=== PATIENT | male | born 1930 | race Caucasian/White ===

== ENCOUNTER 2016-03-10 16:44 | Emergency (ER) | payer MEDICARE, MEDICAID ==
[2016-03-10] MEDS ORDERED: Acyclovir* 400 MG TAB PO ONE (18:38)
[2016-03-10] MEDS ORDERED: DOXYcycline CAP(*) 100 MG PO ONE (18:38)
[2016-03-10 20:01] VITALS: BP 145/94
[2016-03-10] MEDS ORDERED: Mupirocin 2% OINT* TUBE TOPICAL SCH (21:00)
--- NOTE | 2016-03-12 06:46 | ED ---
Varinder Dacosta Janilya, scribed for Valdemar Chairez MD on 03/10/16 at 1827 . Throat Pain/Nasal Congestion - HPI Summary HPI Summary: A 85 y/o male was [place] [facility] presenting w/ a sore and rash in left nostril starting today. Pt also reports that pain radiates to the left side of his face. Pain is described as constant pain. Pt is legally blind. - History of Current Complaint Chief Complaint: EDGeneral Time Seen by Provider: 03/10/16 18:13 Hx Obtained From: Patient Onset/Duration: Gradual Onset, Lasting Hours Severity: Moderate - Allergies/Home Medications Allergies/Adverse Reactions: Allergies Allergy/AdvReac Type Severity Reaction Status Date / Time Erythromycin Allergy Unknown Unknown Verified 02/24/15 19:56 Reaction Details Sulfa Drugs Allergy Unknown Unknown Verified 02/24/15 19:56 Reaction Details Azithromycin Allergy Unknown Verified 02/24/15 19:56 Reaction Details PMH/Surg Hx/FS Hx/Imm Hx Endocrine/Hematology History: Denies: Hx Anticoagulant Therapy, Hx Diabetes, Hx Thyroid Disease, Other Endocrine/Hematological Disorders Cardiovascular History: Reports: Hx Aneurysm, Hx Hypertension Denies: Hx Pacemaker/ICD, Hx Peripheral Vascular Disease, Other Cardiovascular Problems/Disorders Respiratory History: Reports: Hx Chronic Obstructive Pulmonary Disease (COPD) Denies: Hx Asthma, Other Respiratory Problems/Disorders GI History: Reports: Hx Gastroesophageal Reflux Disease Denies: Other GI Disorders History: Reports: Hx Benign Prostatic Hyperplasia Denies: Hx Renal Disease, Other Problems/Disorders Musculoskeletal History: Denies: Hx Arthritis, Hx Osteoporosis, Other Musculoskeletal History Sensory History: Reports: Hx Cataracts, Hx Legally Blind, Hx Vision Problem, Hx Hearing Problem Denies: Other Sensory Impairments Opthamlomology History: Reports: Hx Cataracts, Hx Legally Blind, Hx Vision Problem Denies: Other Sensory Impairments Neurological History: Denies: Hx Dementia, Hx Headaches, Hx Seizures, Hx Transient Ischemic Attacks (TIA), Other Neuro Impairments/Disorders Psychiatric History: Denies: Hx Substance Abuse, Other Psychiatric Issues/Disorders Infectious Disease History: No Infectious Disease History: Denies: Hx Hepatitis, Hx Human Immunodeficiency Virus (HIV), Traveled Outside the [place] in Last 30 Days - Family History Known Family History: Positive: Hypertension - mother - Social History Alcohol Use: Rare Substance Use Type: Reports: None Hx Tobacco Use: Yes Smoking Status (MU): Light Every Day Tobacco Smoker Type: Pipe Have You Smoked in the Last Year: Yes Review of Systems Positive: Other - constant left sided facial pain Positive: Other - legally blind Positive: Other - sore in left nostril All Other Systems Reviewed And Are Negative: Yes Physical Exam - Summary Physical Exam Summary: GENERAL EXAM GENERAL: Awake, alert, oriented, no acute distress, very pleasant HEENT: Head is normocephalipolc, atraumatic, pupils unreactive to light, clouded right eye, no dendritic lesions on left eye, mucous membranes moist, no erythema, no discharge, no lesions, neck is supple, trachea is midline, no JVD CARDIAC: Regular rate and rhythm, S1, S2, no rub, no murmur, no gallop, 2+ radial and pedal pulses bilaterally RESPIRATORY: Clear to auscultation bilaterally with no rales, rhonchi, or wheezes, non-tender ABDOMEN: Bowel sounds positive, no bruit, soft, non-tender, no CVA tenderness EXTREMITIES: No edema, warm, dry, moving all extremities in a grossly normal manner NEUROLOGICAL: Mood is appropriate, moving all extremities in a grossly normal manner Triage Information Reviewed: Yes Vital Signs On Initial Exam: Initial Vitals Temp Pulse Resp BP Pulse Ox 98.2 F 79 16 120/56 98 03/10/16 17:57 03/10/16 17:57 03/10/16 17:57 03/10/16 17:57 03/10/16 17:57 Vital Signs Reviewed: Yes Diagnostics - Vital Signs Vital Signs Temp Pulse Resp BP Pulse Ox 03/10/16 17:57 98.2 F 79 16 120/56 98 - Laboratory Lab Statement: Any lab studies that have been ordered have been reviewed, and results considered in the medical decision making process. 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 no dendritic lesion seen or cornea. will treat for both bacterial infection and hsv infection discussed with dr hendricks call at 8 am to be seen tomorrow - Diagnoses Provider Diagnoses: Shingles, Bacterial infection - Provider Notifications Discussed Care of Patient with: Dr. Hendricks (plate slitter and inspector) at 1835: recommended workup for shingles because it could cause ulceration of cornea and extreme pain. Discharge - Discharge Plan Condition: Stable Disposition: HOME Prescriptions: Acyclovir TAB* [Zovirax TAB*] 800 mg PO 5ID #70 tab DOXYcycline CAP(*) [DOXYcycline 100MG CAP(*)] 100 mg PO BID #20 cap Patient Education Materials: Shingles (ED) Referrals: Valentin Hendricks MD [Medical Doctor] - 1 Day Additional Instructions: Follow up with Dr. Hendricks (plate slitter and inspector) tomorrow and your Primary Care Provider in 2 days. The documentation as recorded by the Varinder bonilla Janilya accurately reflects the service I personally performed and the decisions made by me, Valdemar Chairez MD.
== END 2016-03-10 20:00 | disposition home or self-care (01) ==
LOC: ED 16:44
DX: B02.9 Zoster without complications (principal); A49.9 Bacterial infection, unspecified; R21 Rash and other nonspecific skin eruption; F17.210 Nicotine dependence, cigarettes, uncomplicated; H54.0 Blindness, both eyes
CPT/HCPCS: 99282; A9270-GY

== ENCOUNTER 2016-04-16 07:24 | Emergency (ER) | payer MEDICARE, MEDICAID ==
[2016-04-16] MEDS ORDERED: NS 0.9% 1000 ML* 1,000 ML IV ONE ×2 (07:54→10:25)
[2016-04-16 08:03] LABS: Hematocrit 44 % (42-52); Mean Corpuscular HGB Conc 34 g/dl (31-36); Mean Corpuscular Hemoglobin 32 pg (27-31); Mean Corpuscular Volume 94 fL (80-94); Mean Platelet Volume 8 um3 (7.4-10.4); Red Blood Count 4.63 10^6/ul (4.0-5.4); Red Cell Distribution Width 14 % (10.5-15); White Blood Count 14.1 10^3/ul (3.5-10.8)
[2016-04-16 08:19] LABS: Albumin 4.4 g/dL (3.2-5.2); Calcium 9.9 mg/dL (8.6-10.3); EGFR African American 96.2 (>60); EGFR Non-African American 74.8 (>60); Globulin 3.1 g/dL (2-4); Potassium 3.9 mmol/L (3.5-5.0); Total Bilirubin 1.8 mg/dL (0.2-1.0); Total Protein 7.5 g/dL (6.4-8.9)
[2016-04-16 08:26] LABS: Troponin I 0.05 ng/mL (<0.04)
--- NOTE | 2016-04-16 09:15 | RAD ---
INDICATION: Cough COMPARISON: January 01, 2016 TECHNIQUE: PA and lateral dual-energy views were obtained. FINDINGS: Bones/Soft Tissues: There are no acute bony findings. Cardiomediastinal: The cardiomediastinal silhouette is normal. Lungs: There are no infiltrates. There is hyperinflation Pleura: There are no pleural effusions. Other: None IMPRESSION: HYPERINFLATION. NO ACTIVE DISEASE.
[2016-04-16 12:04] LABS: Urine Bacteria 1+ (Absent); Urine Bilirubin Negative (Negative); Urine Glucose Negative (Negative); Urine Nitrite Negative (Negative)
[2016-04-16] MEDS ORDERED: Ondansetron INJ* 2 MG/ML VIAL IV ONE (12:55)
[2016-04-16] MEDS ORDERED: Levofloxacin 750 MG IVPREMIX(* 750 MG/150 ML BAG IVPB ONE (12:55)
--- NOTE | 2016-04-16 14:57 | ED ---
Opal Dacosta Rebecca, scribed for Eliseo Vaughan MD on 04/16/16 at 0748 . Complex/Multi-Sys Presentation - HPI Summary HPI Summary: Guanako Hare is an 85 y/o M BIBA who presents to ED c/o generalized weakness. Reports feeling weak for 20 minutes, while walking, immediately prior to a brief episode of LOC. Per nurse, he was ambulating to the bathroom and began feeling weak. He told his aid that he felt weak and near syncopal, who proceeded to lower him to the ground where he vomited 2-3x and reports "passing out." Weakness has been constant since onset. Sx aggravated and alleviated by nothing. Additionally c/o mild nausea and nonproductive cough (3-4 days). Denies any pain. - History Of Current Complaint Chief Complaint: EDWeakness Time Seen by Provider: 04/16/16 07:34 Hx Obtained From: Patient, Other: - Nurse Onset/Duration: Sudden Onset, Still Present Timing: Constant Severity Currently: None Location: Negative Aggravating Factor(s): Nothing Alleviating Factor(s): Nothing Associated Signs And Symptoms: Positive: Weakness - Generalized, Cough - nonproductive, Nausea, Vomiting - 2-3x MENHADEN VESSEL PILOT, Other - LOC (brief). Negative: Chest Pain, Abdominal Pain, Back Pain - Allergies/Home Medications Allergies/Adverse Reactions: Allergies Allergy/AdvReac Type Severity Reaction Status Date / Time Erythromycin Allergy Unknown Unknown Verified 04/16/16 07:39 Reaction Details Sulfa Drugs Allergy Unknown Unknown Verified 04/16/16 07:39 Reaction Details Azithromycin Allergy Unknown Verified 04/16/16 07:39 Reaction Details PMH/Surg Hx/FS Hx/Imm Hx Endocrine/Hematology History: Denies: Hx Anticoagulant Therapy, Hx Diabetes, Hx Thyroid Disease, Other Endocrine/Hematological Disorders Cardiovascular History: Reports: Hx Aneurysm, Hx Hypertension Denies: Hx Pacemaker/ICD, Hx Peripheral Vascular Disease, Other Cardiovascular Problems/Disorders Respiratory History: Reports: Hx Chronic Obstructive Pulmonary Disease (COPD) Denies: Hx Asthma, Other Respiratory Problems/Disorders GI History: Reports: Hx Gastroesophageal Reflux Disease Denies: Other GI Disorders History: Reports: Hx Benign Prostatic Hyperplasia Denies: Hx Renal Disease, Other Problems/Disorders Musculoskeletal History: Denies: Hx Arthritis, Hx Osteoporosis, Other Musculoskeletal History Sensory History: Reports: Hx Cataracts, Hx Legally Blind, Hx Vision Problem, Hx Hearing Problem Denies: Other Sensory Impairments Opthamlomology History: Reports: Hx Cataracts, Hx Legally Blind, Hx Vision Problem Denies: Other Sensory Impairments Neurological History: Denies: Hx Dementia, Hx Headaches, Hx Seizures, Hx Transient Ischemic Attacks (TIA), Other Neuro Impairments/Disorders Psychiatric History: Denies: Hx Substance Abuse, Other Psychiatric Issues/Disorders Infectious Disease History: No Infectious Disease History: Denies: Hx Hepatitis, Hx Human Immunodeficiency Virus (HIV), Traveled Outside the US in Last 30 Days - Family History Known Family History: Positive: Hypertension - mother - Social History Lives: [facility] Alcohol Use: Rare Substance Use Type: Reports: None Hx Tobacco Use: Yes Smoking Status (MU): Light Every Day Tobacco Smoker Type: Pipe Have You Smoked in the Last Year: Yes Review of Systems Positive: Cough - Nonproductive Positive: Vomiting - 2-3x MENHADEN VESSEL PILOT, Nausea - mild Negative: Arthralgia, Myalgia Positive: Weakness - Generalized, Syncope - Brief LOC All Other Systems Reviewed And Are Negative: Yes Physical Exam Triage Information Reviewed: Yes Vital Signs On Initial Exam: Initial Vitals Temp Pulse Resp BP Pulse Ox 99.7 F 96 20 151/74 95 04/16/16 07:39 04/16/16 07:39 04/16/16 07:39 04/16/16 07:39 04/16/16 07:39 Vital Signs Reviewed: Yes Appearance: Positive: Well-Appearing, No Pain Distress Skin: Positive: Warm, Skin Color Reflects Adequate Perfusion, Dry Head/Face: Positive: Normal Head/Face Inspection Eyes: Positive: Normal ENT: Positive: Other - Dry mucous membranes Neck: Positive: Supple, Nontender Respiratory/Lung Sounds: Positive: Clear to Auscultation, Breath Sounds Present , Other - Making poor expiratory, shallow breathing Cardiovascular: Positive: RRR. Negative: Leg Edema Left, Leg Edema Right Abdomen Description: Positive: Nontender, Soft Bowel Sounds: Positive: Present Musculoskeletal: Positive: Normal Neurological: Positive: Normal Psychiatric: Positive: Normal, Affect/Mood Appropriate Diagnostics - Vital Signs Vital Signs Temp Pulse Resp BP Pulse Ox 04/16/16 07:39 99.7 F 96 20 151/74 95 - Laboratory Lab Results: Lab Results 04/16/16 04/16/16 04/16/16 Range/Units 07:50 07:50 07:50 WBC 14.1 H (3.5-10.8) 10^3/ul RBC 4.63 (4.0-5.4) 10^6/ul Hgb 15.0 (14.0-18.0) g/dl Hct 44 (42-52) % MCV 94 (80-94) fL MCH 32 H (27-31) pg MCHC 34 (31-36) g/dl RDW 14 (10.5-15) % Plt Count 173 (150-450) 10^3/ul MPV 8 (7.4-10.4) um3 Neut % (Auto) 86.7 H (38-83) % Lymph % (Auto) 4.6 L (25-47) % [place] % (Auto) 7.8 (1-9) % Eos % (Auto) 0.2 (0-6) % Baso % (Auto) 0.7 (0-2) % Absolute Neuts (auto) 12.2 H (1.5-7.7) 10^3/ul Absolute Lymphs (auto) 0.6 L (1.0-4.8) 10^3/ul Absolute Monos (auto) 1.1 H (0-0.8) 10^3/ul Absolute Eos (auto) 0 (0-0.6) 10^3/ul Absolute Basos (auto) 0.1 (0-0.2) 10^3/ul Absolute Nucleated RBC 0 10^3/ul Nucleated RBC % 0 Sodium 129 L (133-145) mmol/L Potassium 3.9 (3.5-5.0) mmol/L Chloride 94 L (101-111) mmol/L Carbon Dioxide 27 (22-32) mmol/L Anion Gap 8 (2-11) mmol/L BUN 24 (6-24) mg/dL Creatinine 0.96 (0.67-1.17) mg/dL Est GFR ( Amer) 96.2 (>60) Est GFR (Non-Af Amer) 74.8 (>60) BUN/Creatinine Ratio 25.0 H (8-20) Glucose 123 H (70-100) mg/dL Lactic Acid 1.3 (0.5-2.0) mmol/L Calcium 9.9 (8.6-10.3) mg/dL Magnesium 2.0 (1.9-2.7) mg/dL Total Bilirubin 1.80 H (0.2-1.0) mg/dL AST 39 (13-39) U/L ALT 32 (7-52) U/L Alkaline Phosphatase 139 H (34-104) U/L Troponin I 0.05 H* (<0.04) ng/mL Total Protein 7.5 (6.4-8.9) g/dL Albumin 4.4 (3.2-5.2) g/dL Globulin 3.1 (2-4) g/dL Albumin/Globulin Ratio 1.4 (1-3) TSH 1.00 (0.34-5.60) mcIU/mL Urine Color Urine Appearance Urine pH (5-9) Ur Specific [place] (1.010-1.030) Urine Protein (Negative) Urine Ketones (Negative) Urine Blood (Negative) Urine Nitrate (Negative) Urine Bilirubin (Negative) Urine Urobilinogen (Negative) Ur Leukocyte Esterase (Negative) Urine WBC (Auto) (Absent) Urine RBC (Auto) (Absent) Urine Bacteria (Absent) Urine Glucose (Negative) 04/16/16 04/16/16 Range/Units 11:42 13:45 WBC (3.5-10.8) 10^3/ul RBC (4.0-5.4) 10^6/ul Hgb (14.0-18.0) g/dl Hct (42-52) % MCV (80-94) fL MCH (27-31) pg MCHC (31-36) g/dl RDW (10.5-15) % Plt Count (150-450) 10^3/ul MPV (7.4-10.4) um3 Neut % (Auto) (38-83) % Lymph % (Auto) (25-47) % [place] % (Auto) (1-9) % Eos % (Auto) (0-6) % Baso % (Auto) (0-2) % Absolute Neuts (auto) (1.5-7.7) 10^3/ul Absolute Lymphs (auto) (1.0-4.8) 10^3/ul Absolute Monos (auto) (0-0.8) 10^3/ul Absolute Eos (auto) (0-0.6) 10^3/ul Absolute Basos (auto) (0-0.2) 10^3/ul Absolute Nucleated RBC 10^3/ul Nucleated RBC % Sodium (133-145) mmol/L Potassium (3.5-5.0) mmol/L Chloride (101-111) mmol/L Carbon Dioxide (22-32) mmol/L Anion Gap (2-11) mmol/L BUN (6-24) mg/dL Creatinine (0.67-1.17) mg/dL Est GFR ( Amer) (>60) Est GFR (Non-Af Amer) (>60) BUN/Creatinine Ratio (8-20) Glucose (70-100) mg/dL Lactic Acid (0.5-2.0) mmol/L Calcium (8.6-10.3) mg/dL Magnesium (1.9-2.7) mg/dL Total Bilirubin (0.2-1.0) mg/dL AST (13-39) U/L ALT (7-52) U/L Alkaline Phosphatase (34-104) U/L Troponin I 0.07 H* (<0.04) ng/mL Total Protein (6.4-8.9) g/dL Albumin (3.2-5.2) g/dL Globulin (2-4) g/dL Albumin/Globulin Ratio (1-3) TSH (0.34-5.60) mcIU/mL Urine Color Yellow Urine Appearance Cloudy Urine pH 7.0 (5-9) Ur Specific [place] 1.015 (1.010-1.030) Urine Protein Negative (Negative) Urine Ketones Negative (Negative) Urine Blood Negative (Negative) Urine Nitrate Negative (Negative) Urine Bilirubin Negative (Negative) Urine Urobilinogen Negative (Negative) Ur Leukocyte Esterase 3+ H (Negative) Urine WBC (Auto) 3+(>20/hpf) H (Absent) Urine RBC (Auto) Absent (Absent) Urine Bacteria 1+ H (Absent) Urine Glucose Negative (Negative) Result Diagrams: 04/16/16 07:50 04/16/16 07:50 Lab Statement: Any lab studies that have been ordered have been reviewed, and results considered in the medical decision making process. - Radiology CXR Radiology Interpretation Completed By: Radiologist - HYPERINFLATION. NO ACTIVE DISEASE. - EKG 0805 Cardiac Rate: NL - 95 bpm EKG Rhythm: Sinus Rhythm ST Segment: Non-Specific Ectopy: PVCs Complex Multi-Symp Course/Dx Assessment/Plan: Guanako Hrae is an 85 y/o M BIBA who presents to the ED c /o generalized weakness. Reports weakness began 20 minutes prior to an episode of LOC with 2-3 bouts of vomiting. Additionally c/o nonproductive cough (3-4 days) and mild nausea. Denies any pain. CXR reveals hyperinflation and no active disease. EKG reveals nonspecific ST changes and PVCs. Troponin of 0.05 and 0.07. Pt will be D/C to home with a dx of UTI and syncope and a followup with his PCP. - Diagnoses Provider Diagnoses: UTI (urinary tract infection), Syncope Discharge - Discharge Plan Condition: Stable Disposition: HOME Prescriptions: Ciprofloxacin TAB* [Cipro Tab*] 500 mg PO BID #20 tab Patient Education Materials: Urinary Tract Infection in Men (ED), Syncope (ED) Referrals: [facility] [Outside] - 3 Days (Follow up with your primary care physician within the next 3 days. ) The documentation as recorded by the Opal bonilla Rebecca accurately reflects the service I personally performed and the decisions made by me, Eliseo Vaughan MD.
[2016-04-16 16:19] VITALS: BP 114/65
--- NOTE | 2016-04-19 07:12 | PN ---
Progress Note - Progress Note Note: Patient placed on cipro for UTI which according in final culture is not sensitive for. Changed antibiotic to augmentin twice a day for 10 days. Left voicemail at residential to stop current antibiotic and start new one.
== END 2016-04-16 16:43 | disposition home or self-care (01) ==
LOC: ED 07:24
DX: N39.0 Urinary tract infection, site not specified (principal); R55 Syncope and collapse; R53.1 Weakness; R05 Cough; R11.2 Nausea with vomiting, unspecified; F17.210 Nicotine dependence, cigarettes, uncomplicated
CPT/HCPCS: 36415; 71020; 80053; 81003; 81015; 83605; 83735; 84443; 84484; 85025; 87077; 87086; 87186; 93005; 96365; 96366; 96375; 99285; J2405

== ENCOUNTER 2016-06-09 15:05 | Inpatient (IN) | payer MEDICARE, MEDICAID ==
[2016-06-09] MEDS ORDERED: NS 0.9% 1000 ML* 1,000 ML IV ONE (16:14)
[2016-06-09 16:37] LABS: Urine Bacteria 1+ (Absent); Urine Bilirubin Negative (Negative); Urine Glucose Negative (Negative); Urine Nitrite Negative (Negative)
[2016-06-09 16:38] LABS: Hematocrit 45 % (42-52); Hemoglobin 15.1 g/dl (14.0-18.0); Mean Corpuscular HGB Conc 33 g/dl (31-36); Mean Corpuscular Hemoglobin 31 pg (27-31); Mean Corpuscular Volume 94 fL (80-94); Mean Platelet Volume 7 um3 (7.4-10.4); Red Blood Count 4.82 10^6/ul (4.0-5.4); Red Cell Distribution Width 14 % (10.5-15); White Blood Count 6.4 10^3/ul (3.5-10.8)
[2016-06-09 16:51] LABS: Albumin 4.5 g/dL (3.2-5.2); BUN/Creatinine Ratio 27.5 (8-20); Calcium 9.7 mg/dL (8.6-10.3); EGFR African American 102.1 (>60); EGFR Non-African American 79.4 (>60); Globulin 3.3 g/dL (2-4); Magnesium 2.2 mg/dL (1.9-2.7); Potassium 4.1 mmol/L (3.5-5.0); Total Bilirubin 1.3 mg/dL (0.2-1.0); Total Protein 7.8 g/dL (6.4-8.9)
[2016-06-09 16:56] LABS: Troponin I 0.04 ng/mL (<0.04)
[2016-06-09] MEDS ORDERED: Cefepime(*) 1 GM in NS 0.9% 50 ML* 50 ML IVPB ONE (17:06)
--- NOTE | 2016-06-09 17:07 | RAD ---
INDICATION: Weakness COMPARISON: April 16, 2016 TECHNIQUE: AP seated and lateral views were obtained. FINDINGS: Bones/Soft Tissues: There are no acute bony findings. Cardiomediastinal: The cardiomediastinal silhouette is normal. Lungs: There are no infiltrates. There is hyperinflation with mild chronic interstitial changes Pleura: There are no pleural effusions. Other: None IMPRESSION: HYPERINFLATION WITH MILD CHRONIC INTERSTITIAL CHANGE
[2016-06-09 17:12] LABS: TSH (Thyroid Stimulating Horm) 0.73 mcIU/mL (0.34-5.60)
[2016-06-09] MEDS ORDERED: NS 0.9% 50 ML* 50 ML ONE (17:44)
--- NOTE | 2016-06-09 18:59 | ED ---
Asim Dacosta Billy, scribed for Trenton Meraz MD on 06/09/16 at 1607 . Complex/Multi-Sys Presentation - HPI Summary HPI Summary: Patient is an 86 year-old male coming to [facility] from [place]. Per triage, he was sent to the ED for evaluation of hypotension and low O2 sat. Here in the ED, patient complains of chills. It is noted on review of the care home transfer sheet that the patient had a BP in the 80s associated with decreased LOC, and skin color clammy. - History Of Current Complaint Chief Complaint: EDGeneral Time Seen by Provider: 06/09/16 16:02 Hx Obtained From: Patient Onset/Duration: Gradual Onset Timing: Constant Severity Currently: Moderate Severity Initially: Moderate Aggravating Factor(s): n/a Alleviating Factor(s): n/a Associated Signs And Symptoms: Positive: Other - chills - Allergies/Home Medications Allergies/Adverse Reactions: Allergies Allergy/AdvReac Type Severity Reaction Status Date / Time Erythromycin Allergy Unknown Unknown Verified 04/16/16 07:39 Reaction Details Sulfa Drugs Allergy Unknown Unknown Verified 04/16/16 07:39 Reaction Details Azithromycin Allergy Unknown Verified 04/16/16 07:39 Reaction Details Home Medications: Home Medications Albuterol/Ipratropium NEB.ROSI* [Duoneb (Albuterol 2.5 MG/Ipratropium 0.5 MG)] 1 neb INH Q4H PRN 06/09/16 [History Confirmed 06/09/16] Ascorbic Acid TAB* [Vitamin C TAB*] 500 mg PO DAILY 06/09/16 [History Confirmed 06/09/16] Atorvastatin* [Lipitor 40 MG*] 40 mg PO BEDTIME 06/09/16 [History Confirmed ] Digoxin TAB* [Lanoxin TAB*] 0.125 mg PO DAILY 06/09/16 [History Confirmed ] Diphenhydramine-Acetaminophen [Acetaminophen/Diphenhydra 25-500 mg] 1 tab PO BEDTIME 06/09/16 [History Confirmed 06/09/16] Esomeprazole(NF) [NEXium(NF)] 20 mg PO DAILY 06/09/16 [History Confirmed ] Meloxicam(NF) [Mobic(NF)] 15 mg PO DAILY 06/09/16 [History Confirmed 06/09/16] Multivitamins/Minerals TAB* [Theragran/minerals TAB*] 1 tab PO DAILY 06/09/16 [ History Confirmed 06/09/16] Nutritional Supplements [Ensure] 1 can PO .BID AND SNACKS 06/09/16 [History Confirmed 06/09/16] PMH/Surg Hx/FS Hx/Imm Hx Endocrine/Hematology History: Denies: Hx Anticoagulant Therapy, Hx Diabetes, Hx Thyroid Disease, Other Endocrine/Hematological Disorders Cardiovascular History: Reports: Hx Aneurysm, Hx Hypertension Denies: Hx Pacemaker/ICD, Hx Peripheral Vascular Disease, Other Cardiovascular Problems/Disorders Respiratory History: Reports: Hx Chronic Obstructive Pulmonary Disease (COPD) Denies: Hx Asthma, Other Respiratory Problems/Disorders GI History: Reports: Hx Gastroesophageal Reflux Disease Denies: Other GI Disorders History: Reports: Hx Benign Prostatic Hyperplasia Denies: Hx Renal Disease, Other Problems/Disorders Musculoskeletal History: Denies: Hx Arthritis, Hx Osteoporosis, Other Musculoskeletal History Sensory History: Reports: Hx Cataracts, Hx Legally Blind, Hx Vision Problem, Hx Hearing Problem Denies: Other Sensory Impairments Opthamlomology History: Reports: Hx Cataracts, Hx Legally Blind, Hx Vision Problem Denies: Other Sensory Impairments Neurological History: Denies: Hx Dementia, Hx Headaches, Hx Seizures, Hx Transient Ischemic Attacks (TIA), Other Neuro Impairments/Disorders Psychiatric History: Denies: Hx Substance Abuse, Other Psychiatric Issues/Disorders Infectious Disease History: No Infectious Disease History: Denies: Hx Hepatitis, Hx Human Immunodeficiency Virus (HIV), Traveled Outside the [place] in Last 30 Days - Family History Known Family History: Positive: Hypertension - mother - Social History Alcohol Use: Rare Substance Use Type: Reports: None Hx Tobacco Use: Yes Smoking Status (MU): Light Every Day Tobacco Smoker Type: Pipe Have You Smoked in the Last Year: Yes Review of Systems Positive: Chills Positive: Other - low blood pressure per triage Positive: Other - low O2 sat per triage All Other Systems Reviewed And Are Negative: Yes Physical Exam Triage Information Reviewed: Yes Vital Signs On Initial Exam: Initial Vitals Temp Pulse Resp BP Pulse Ox 98.0 F 72 14 138/76 98 06/09/16 15:27 06/09/16 15:27 06/09/16 15:27 06/09/16 15:27 06/09/16 15:27 Vital Signs Reviewed: Yes Appearance: Positive: Well-Appearing, No Pain Distress Skin: Positive: Warm Head/Face: Positive: Normal Head/Face Inspection Neck: Positive: Supple Respiratory/Lung Sounds: Positive: Clear to Auscultation, Breath Sounds Present Cardiovascular: Positive: Normal, RRR. Negative: Murmur Abdomen Description: Positive: Nontender Musculoskeletal: Positive: Normal, Strength/ROM Intact Neurological: Positive: Normal, Sensory/Motor Intact, Alert, Oriented to Person Place, Time, CN Intact II-III - except cranial nerve 2 he is blind Psychiatric: Positive: Normal - [place] Coma Scale Best Eye Response: 4 - Spontaneous Best Motor Response: 6 - Obeys Commands Best Verbal Response: 5 - Oriented Coma Scale Total: 15 Glascow Coma Scale Comments: 15 Diagnostics - Vital Signs Vital Signs Temp Pulse Resp BP Pulse Ox 06/09/16 15:37 71 99 06/09/16 15:35 132/79 06/09/16 15:28 98.0 F 72 14 138/76 98 06/09/16 15:27 98.0 F 72 14 138/76 98 - Laboratory Result Diagrams: 06/09/16 16:25 06/09/16 16:25 Lab Statement: Any lab studies that have been ordered have been reviewed, and results considered in the medical decision making process. - Radiology CXR Radiology Interpretation Completed By: Radiologist - HYPERINFLATION WITH MILD CHRONIC INTERSTITIAL CHANGE - EKG 1711 EKG Interpretation: NSR 77 bpm, diffuse T-wave flattening particularly in inferior/lateral lead Complex Multi-Symp Course/Dx - Diagnoses Provider Diagnoses: UTI (urinary tract infection), Hypotension, Confusion Discharge - Discharge Plan Condition: Good Disposition: ADMITTED TO [facility] documentation as recorded by the Asim bonilla Billy accurately reflects the service I personally performed and the decisions made by , Trenton Meraz MD.
[2016-06-09] MEDS ORDERED: Albuterol/Ipratropium NEB.SOL* Albuterol 2.5 MG/Ipratropium 0.5 MG 3 ML INH PRN (20:23)
[2016-06-09] MEDS ORDERED: Docusate CAP* 100 MG PO PRN (20:23)
[2016-06-09] MEDS ORDERED: Polyethylene Glycol 3350* 17 GM PACKET PO PRN (20:23)
[2016-06-09] MEDS ORDERED: Al Hydrox/Mg Hydrox/Simet LIQ* 30 ML UDC PO PRN (20:23)
[2016-06-09] MEDS: Mometasone/Formoter 200/5 MDI INH SCH (21:27)
--- NOTE | 2016-06-09 21:58 | HP ---
HISTORY AND PHYSICAL: DATE OF ADMISSION: 06/09/16 PRIMARY CARE PROVIDER: REGINALDO Castellano ATTENDING PHYSICIAN: Dr. Jose Rafael Langford* (dictated by Lacie Guzman NP ) CHIEF COMPLAINT: Confusion with low blood pressure and oxygen saturation. HISTORY OF PRESENT ILLNESS: Mr. Hare is an 86-year-old male with past medical history significant for COPD, hyperlipidemia, legally blind, hypertension, demand mediated myocardial infarction, paroxysmal atrial fibrillation, who is a resident at the [facility] and was sent to the emergency room for further evaluation earlier today. According to the [facility] records, the patient was clammy and confused. He had his vital signs checked. He was found to have an oxygen saturation of 70% on room air, BP 81/ 56 and heart rate 69. Due to the concern, [facility] called 911 and the patient was transported by EMS to the emergency room. It is to note that the EMS started the patient on 6 L nasal cannula and his O2 sat was 100%. While in the emergency room, the patient was found to have an O2 sat of 98% on room air upon arrival with a blood pressure of 125/75. The patient states that he came to the emergency room to be checked out, but he had been feeling well. The patient states that he has an occasional cough that he has had for a while and reports some mild shortness of breath at baseline. The patient has no other complaints. He denies fever, chills, chest pain, nausea, vomiting, abdominal pain, diarrhea, urinary symptoms. The patient does report that "nursing staff said that I did not use my urinal, but I did." The Hospitalists were asked to evaluate the patient for admission. PAST MEDICAL HISTORY: 1. GERD. 2. Chronic obstructive pulmonary disease. 3. Hyperlipidemia. 4. Legally blind. 5. AAA. 6. Hypertension. 7. BPH. 8. Demand mediated myocardial infarction in February of 2015. 9. Paroxysmal atrial fibrillation. PAST SURGICAL HISTORY: Status post tonsillectomy. HOME MEDICATIONS: Include: 1. Vitamin C 500 mg oral daily. 2. Ensure 1 can twice daily. 3. Nexium 20 mg oral daily. 4. TobraDex 0.3-0.1% one drop to both eyes 3 times daily. 5. MiraLAX 17 g oral twice daily as needed for constipation. 6. Albuterol ipratropium nebulizer 1 neb inhalation every 4 hours as needed for shortness of breath or wheeze. 7. Maalox 30 mL oral every 4 hours as needed for indigestion. 8. Colace 100 mg oral twice daily as needed for constipation. 9. Atorvastatin 40 mg oral daily at bedtime. 10. Tamsulosin 0.4 mg oral daily at bedtime. 11. Tylenol PM 1 tablet oral daily at bedtime. 12. Aspirin 81 mg oral daily. 13. Advair Diskus 250/50 one puff inhalation twice daily. 14. Finasteride 5 mg oral daily. 15. Multivitamin 1 tablet oral daily. 16. Ferrous sulfate 325 mg oral daily. 17. Meloxicam 15 mL oral daily. 18. Digoxin 0.125 mg oral daily. 19. Amlodipine 5 mg oral daily. 20. Ranitidine 150 mg oral twice daily. ALLERGIES: ERYTHROMYCIN, SULFA and AZITHROMYCIN. FAMILY HISTORY: The patient reports his mother had a history of hypertension. The patient denies any family history of diabetes mellitus or cancer. SOCIAL HISTORY: The patient is a current tobacco user. He smokes 1 pipe daily. He smoked for approximately 60 years. The patient denies alcohol or recreational drug use. He is retired. He is and lives at [facility]. His surrogate decision maker will be Genesis Rivera in the event he is unable to make decisions for himself. REVIEW OF SYSTEMS: I performed a 14-point review of systems. All the pertinent negatives and positives are mentioned in the history of present illness. The remaining review of systems are negative. PHYSICAL EXAMINATION GENERAL APPEARANCE: The patient is alert, pleasant and appears to be in no acute distress. VITAL SIGNS: Temperature 98.0, heart rate 78, respiratory rate 14, O2 sat 95% on room air, blood pressure 126/64. HEENT: Normocephalic, atraumatic. Eyes: Extraocular movements are intact. The patient is legally blind in both eyes. RESPIRATORY: There is no accessory muscle use and the lungs are clear to auscultation bilaterally. CARDIOVASCULAR: Regular rate and rhythm. S1, S2 present. There are no murmurs , rubs, or gallops heard. ABDOMEN: Soft, nontender, and nondistended. There are bowel sounds present x4. EXTREMITIES: There is no lower extremity edema. DP and PT pulses are 2+ and symmetric. MUSCULOSKELETAL: There is no clubbing or cyanosis noted. The patient exhibits good strength in all extremities. NEUROLOGICAL: The patient is alert and oriented to person, place and situation. He is unsure of the year. Cranial nerves III through XII are grossly intact with the exception of cranial nerve II as the patient is blind. PSYCHOLOGICAL: The patient is calm and cooperative. SKIN: There are no rashes or abnormalities seen. DIAGNOSTIC STUDIES/LAB DATA: Sodium 131, potassium 4.1, chloride 97, CO2 27, BUN 25, creatinine 0.91, glucose 91. White blood cell count 6.4, hemoglobin 15.1, hematocrit 45, and platelet count 171. Troponin 0.04. Urinalysis shows protein 1+, leukocyte esterase 3+, wbc is 3+ and bacteria is 1+ EKG shows a sinus rhythm with a rate of 77. There is diffuse T-wave flattening. EKG is similar to previous EKG from 04/16/16. Chest x-ray from today. Radiologist's impression. Hyperinflation with mild chronic interstitial changes. IMPRESSION: Mr. Hare is an 86-year-old male with past medical history significant for gastroesophageal reflux disease, chronic obstructive pulmonary disease, hyperlipidemia, legally blind, hypertension, paroxysmal atrial fibrillation, and demand mediated myocardial infarction who presents to the emergency room with confusion and reports of hypotension and hypoxia at his long term. He will be admitted as an observation for altered mental status. ASSESSMENT: 1. Altered mental status. The patient has mild confusion in regards to time. The patient has urinalysis significant for leukocyte esterase 3+, wbc is 3+, bacteria 1+. This could represent a urinary tract infection. If the patient does in fact have urinary tract infection, this could be contributing to the patient's altered mental status. The patient was not found to be hypoxic upon arrival to the emergency room and his blood pressures have been normotensive during his emergency room stay. At this time until urine cultures come back, the patient will be started on ceftriaxone, given gentle IV hydration overnight. 2. Elevated Troponin. Patient denies chest discomfort. Troponin appears to be at baseline. 3. Hypertension. The patient will be continued on Norvasc. 4. Benign prostatic hyperplasia. The patient will be continued on his home finasteride and tamsulosin. 5. Paroxysmal atrial fibrillation. The patient will be continued on his home digoxin. He is not on anticoagulation at home. 6. History of gastroesophageal reflux disease. The patient will be continued on his ranitidine and Nexium or autosubstitutes. 7. Hyperlipidemia. The patient will be continued on his home atorvastatin. 8. Chronic obstructive pulmonary disease. The patient will be continued on DuoNebs as needed. He is not currently showing signs of his chronic obstructive pulmonary disease exacerbation. His lungs are clear. 9. Fluids, electrolytes, nutrition. The patient will be on a heart healthy diet. 10. Code status. Do not resuscitate. 11. DVT prophylaxis. The patient is at high risk and will be placed on subcu heparin. 12. Disposition. Observation for altered mental status suspected secondary to urinary tract infection. TIME SPENT: Time for this admission was 60 minutes and 35 minutes were spent face- to-face with the patient discussing medication, past medical history and the events leading up to his arrival today and performing a physical examination. The case has been reviewed with the attending, Dr. Langford, who agrees with the plan of care. Reviewed by DHARA ELLISON 06/10/16 [id number] CC: REGINALDO Castellano* [id number]/[facility] #: [id number] MTDD
[2016-06-09] MEDS: NS 0.9% 1000 ML* 1,000 ML IV SCH (22:24)
[2016-06-09] MEDS: Atorvastatin* 40 MG TAB PO SCH (22:26)
[2016-06-09] MEDS: cefTRIAXone VIAL(*) 1,000 MG in NS 0.9% 50 ML* 50 ML IVPB SCH (22:26)
[2016-06-09] MEDS: Famotidine TAB* 20 MG PO SCH (22:26)
[2016-06-09] MEDS: Heparin VIAL(*) 5000 UNITS/ML VIAL (FIVE THOUSAND) SUBCUT SCH (22:26)
[2016-06-09] MEDS: Tamsulosin CAP* 0.4 MG PO SCH (22:27)
[2016-06-10] MEDS: Tobramycin/Dexameth OPTH.SUSP* 2.5 M L BTL BOTH EYES SCH ×4 (00:10→21:19)
[2016-06-10] MEDS ORDERED: Ondansetron INJ* 2 MG/ML VIAL ONE (01:56)
[2016-06-10] MEDS ORDERED: Acetaminophen TAB* 325 MG ONE (01:56)
[2016-06-10] MEDS: Ondansetron INJ* 2 MG/ML VIAL IV PRN ×2 (01:58→07:06)
[2016-06-10] MEDS: Acetaminophen TAB* 325 MG PO PRN ×2 (01:58→06:58)
[2016-06-10 06:02] LABS: Hematocrit 40 % (42-52); Hemoglobin 13.2 g/dl (14.0-18.0); Mean Corpuscular HGB Conc 33 g/dl (31-36); Mean Corpuscular Hemoglobin 31 pg (27-31); Mean Corpuscular Volume 94 fL (80-94); Mean Platelet Volume 8 um3 (7.4-10.4); Red Blood Count 4.21 10^6/ul (4.0-5.4); Red Cell Distribution Width 14 % (10.5-15); White Blood Count 8.8 10^3/ul (3.5-10.8)
[2016-06-10] MEDS: Heparin VIAL(*) 5000 UNITS/ML VIAL (FIVE THOUSAND) SUBCUT SCH ×3 (06:05→21:19)
[2016-06-10 07:26] LABS: BUN/Creatinine Ratio 26.7 (8-20); Calcium 8.1 mg/dL (8.6-10.3); EGFR African American 127.6 (>60); EGFR Non-African American 99.2 (>60); Potassium 3.9 mmol/L (3.5-5.0)
--- NOTE | 2016-06-10 08:48 | PN ---
Subjective Date of Service: 06/10/16 Interval History: Mr. Almaguer states he feels "lousy" this morning and c/o diarrhea that started early this morning, as well as one episode of vomiting. He denies abdominal pain , CP, SOB. He denies any other sick contacts and doesn't know if anyone else at [facility] has been sick recently. Family History: Unchanged from Admission Social History: Unchanged from Admission Past Medical History: Unchanged from Admission Objective Active Medications: Acetaminophen (Tylenol Tab*) 650 mg PO Q4H PRN PRN Reason: FEVER/PAIN Last Admin: 06/10/16 06:58 Dose: 650 mg Al Hydrox/Mg Hydrox/Simethicone (Maalox Plus*) 30 ml PO Q4H PRN PRN Reason: INDIGESTION Albuterol/Ipratropium (Duoneb (Albuterol 2.5 Mg/Ipratropium 0.5 Mg)) 1 neb INH Q4H PRN PRN Reason: SHORTNESS OF BREATH Amlodipine Besylate (Norvasc Tab*) 5 mg PO DAILY [facility] Ascorbic Acid (Vitamin C Tab*) 500 mg PO DAILY [facility] Aspirin (Aspirin Low Dose Tab*) 81 mg PO DAILY [facility] Atorvastatin Calcium (Lipitor*) 40 mg PO BEDTIME [facility] Last Admin: 06/09/16 22:26 Dose: 40 mg Digoxin (Lanoxin Tab*) 0.125 mg PO DAILY [facility] Docusate Sodium (Colace Cap*) 100 mg PO BID PRN PRN Reason: CONSTIPATION Famotidine (Pepcid Tab*) 20 mg PO BID [facility] PRN Reason: Protocol Last Admin: 06/09/16 22:26 Dose: 20 mg Ferrous Sulfate (Ferrous Sulfate Tab*) 325 mg PO DAILY [facility] Finasteride (Proscar Tab*) 5 mg PO DAILY [facility] Heparin Sodium (Porcine) (Heparin Vial(*)) 5,000 units SUBCUT Q8HR [facility] Last Admin: 06/10/16 06:05 Dose: 5,000 units Sodium Chloride (Ns 0.9% 1000 Ml*) 1,000 mls @ 100 mls/hr IV PER RATE [facility] Last Admin: 06/09/16 22:24 Dose: 100 mls/hr Ceftriaxone Sodium 1,000 mg/ (Sodium Chloride) 50 mls @ 200 mls/hr IVPB Q24H [facility] Last Admin: 06/09/16 22:26 Dose: 200 mls/hr Mometasone Furoate/Formoterol Fumar (Dulera 200/5 Mdi*) 2 puff INH BID [facility] Last Admin: 06/09/16 21:27 Dose: Not Given Multivitamins/Minerals (Theragran/Minerals Tab*) 1 tab PO DAILY [facility] Omeprazole (Prilosec Cap*) 20 mg PO DAILY@0730 [facility] PRN Reason: Protocol Ondansetron HCl (Zofran Inj*) 4 mg IV Q4H PRN PRN Reason: NAUSEA Last Admin: 06/10/16 07:06 Dose: 4 mg Polyethylene Glycol/Electrolytes (Miralax*) 17 gm PO BID PRN PRN Reason: CONSTIPATION Tamsulosin HCl (Flomax Cap*) 0.4 mg PO BEDTIME [facility] Last Admin: 06/09/16 22:27 Dose: 0.4 mg Tobramycin/Dexamethasone (Tobradex 0.3-0.1%*) 1 drop BOTH EYES TID [facility] Last Admin: 06/10/16 00:10 Dose: 1 drop Vital Signs 06/09/16 06/09/16 06/09/16 19:30 20:44 21:37 Temperature 98.5 F 98.1 F Pulse Rate 78 72 70 Respiratory 16 18 Rate Blood Pressure 126/64 141/73 128/64 (mmHg) O2 Sat by Pulse 95 98 98 Oximetry 06/10/16 06/10/16 06/10/16 00:14 01:05 01:53 Temperature 100.2 F 100.0 F 101.2 F Pulse Rate 79 79 Respiratory 16 Rate Blood Pressure 130/66 (mmHg) O2 Sat by Pulse 98 97 Oximetry 06/10/16 06/10/16 06/10/16 03:04 03:14 06:49 Temperature 101.3 F 99.6 F 101.8 F Pulse Rate 95 Respiratory 16 Rate Blood Pressure 131/65 (mmHg) O2 Sat by Pulse 98 Oximetry Oxygen Devices in Use Now: None Appearance: Elderly male patient, lying in bed, in NAD Eyes: - - legally blind Ears/Nose/Mouth/Throat: Mucous Membranes Moist Neck: NL Appearance and Movements; NL JVP Respiratory: Symmetrical Chest Expansion and Respiratory Effort, Clear to Auscultation Cardiovascular: NL Sounds; No Murmurs; No JVD, RRR Abdominal: NL Sounds; No Tenderness; No Distention Extremities: No Edema, No Clubbing, Cyanosis Skin: No Rash or Ulcers Neurological: Alert and Oriented x 3, - Lines/Tubes/Other Access: Clean, Dry and Intact Peripheral IV Result Diagrams: 06/10/16 05:43 06/10/16 05:43 Microbiology and Other Data: Microbiology 06/09/16 21:24 Nasal Screen MRSA (PCR)([facility]) - Final Nasal Mrsa Positive Assess/Plan/Problems-Billing Assessment: Mr. Hare is an 86 yo male with a PMH of COPD, GERD, HLD, HTN, legal blindness , AAA and PAF who was referred to the ED on 06/09/16 with concern for confusion, hypotension, and low O2 saturation. - Patient Problems (1) Altered mental status Code(s): R41.82 - ALTERED MENTAL STATUS, UNSPECIFIED Comment: Appears improved, suspect secondary to acute illness Suspicion for UTI, continue ceftriaxone while awaiting cultures Tmax 101.8 overnight, with n/v/d this morning, appears viral No further hypoxia No blood cx growth thus far Continue supportive care (2) Nausea, vomiting, and diarrhea Code(s): R11.2 - NAUSEA WITH VOMITING, UNSPECIFIED; R19.7 - DIARRHEA, UNSPECIFIED Comment: Suspect viral gastroenteritis Obtain stool culture if patient able to provide specimen Continue IV hydration Prn antiemetics and supportive care (3) UTI (urinary tract infection) Current Visit: Yes Comment: UA positive for leukocyte esterase Continue ceftriaxone while awaiting urine culture (4) Elevated troponin Code(s): R74.8 - ABNORMAL LEVELS OF OTHER SERUM ENZYMES Comment: Patient denies chest pain Trop 0.04, which appears to be within patient's baseline (5) HTN (hypertension) Code(s): I10 - ESSENTIAL (PRIMARY) HYPERTENSION Comment: Normotensive Continue amlodipine. (6) Paroxysmal atrial fibrillation Code(s): I48.0 - PAROXYSMAL ATRIAL FIBRILLATION Comment: Sinus rhythm Not on chronic anticoagulation Continue digoxin (7) GERD (gastroesophageal reflux disease) Code(s): K21.9 - GASTRO-ESOPHAGEAL REFLUX DISEASE WITHOUT ESOPHAGITIS Comment : Continue ranitidine and PPI. (8) BPH (benign prostatic hyperplasia) Code(s): N40.0 - BENIGN PROSTATIC HYPERPLASIA WITHOUT LOWER URINRY TRACT SYMP Comment: Continue home finasteride and tamsulosin. (9) COPD (chronic obstructive pulmonary disease) Code(s): J44.9 - CHRONIC OBSTRUCTIVE PULMONARY DISEASE, UNSPECIFIED Comment: Stable Continue Dulera, prn nebulizer treatments No hypoxia noted, on room air with O2 sats >93% (10) HLD (hyperlipidemia) Code(s): E78.5 - HYPERLIPIDEMIA, UNSPECIFIED Comment: Continue atorvastatin. (11) DVT prophylaxis Code(s): [id number] - Comment: SQ heparin Status and Disposition: OBV to inpatient admission. D/c to home when medically stable. Will continue to monitor for fever and ability to take PO prior to d/c.
[2016-06-10] MEDS: Mometasone/Formoter 200/5 MDI INH SCH ×2 (08:52→19:59)
[2016-06-10] MEDS: NS 0.9% 1000 ML* 1,000 ML IV SCH ×2 (09:27→20:51)
[2016-06-10] MEDS: Finasteride TAB* 5 MG PO SCH (09:28)
[2016-06-10] MEDS: Ferrous Sulfate TAB* 325 MG PO SCH (09:28)
[2016-06-10] MEDS: amLODIPine TAB* 5 MG PO SCH (09:28)
[2016-06-10] MEDS: Aspirin Low Dose CHEW TAB* 81 MG PO SCH (09:28)
[2016-06-10] MEDS: Famotidine TAB* 20 MG PO SCH ×2 (09:28→21:19)
[2016-06-10] MEDS: Omeprazole CAP* 20 MG PO SCH (09:28)
[2016-06-10] MEDS: Multivitamins/Minerals TAB PO SCH (09:29)
[2016-06-10] MEDS: Digoxin TAB* 0.25 MG PO SCH (09:29)
[2016-06-10] MEDS: Ascorbic Acid TAB* 500 MG PO SCH (09:29)
[2016-06-10] MEDS: Tamsulosin CAP* 0.4 MG PO SCH (21:19)
[2016-06-10] MEDS: Atorvastatin* 40 MG TAB PO SCH (21:19)
[2016-06-10] MEDS: cefTRIAXone VIAL(*) 1,000 MG in NS 0.9% 50 ML* 50 ML IVPB SCH (21:19)
[2016-06-11] MEDS: Heparin VIAL(*) 5000 UNITS/ML VIAL (FIVE THOUSAND) SUBCUT SCH (06:18)
[2016-06-11] MEDS: NS 0.9% 1000 ML* 1,000 ML IV SCH (06:19)
[2016-06-11 07:48] LABS: Hematocrit 33 % (42-52); Hemoglobin 11.4 g/dl (14.0-18.0); Mean Corpuscular HGB Conc 34 g/dl (31-36); Mean Corpuscular Hemoglobin 32 pg (27-31); Mean Corpuscular Volume 93 fL (80-94); Mean Platelet Volume 8 um3 (7.4-10.4); Red Blood Count 3.57 10^6/ul (4.0-5.4); Red Cell Distribution Width 14 % (10.5-15); White Blood Count 7.9 10^3/ul (3.5-10.8)
[2016-06-11 07:51] VITALS: BP 109/50
[2016-06-11 07:58] LABS: BUN/Creatinine Ratio 37.7 (8-20); Calcium 7.7 mg/dL (8.6-10.3); EGFR African American 140.5 (>60); EGFR Non-African American 109.2 (>60); Potassium 3.6 mmol/L (3.5-5.0)
[2016-06-11] MEDS: Mometasone/Formoter 200/5 MDI INH SCH (08:51)
--- NOTE | 2016-06-11 09:16 | PN ---
Subjective Date of Service: 06/11/16 Interval History: Mr. Hare is alert and asks immediately, "When can I get out of here?" He denies any further n/v/d and states, "I feel fine." He is tolerating PO intake. No acute nursing concerns. Patient denies cp, SOB, abd pain. Per [facility], patient is able to get up with stand by assist at baseline. He is ambulatory. Family History: Unchanged from Admission Social History: Unchanged from Admission Past Medical History: Unchanged from Admission Objective Active Medications: Acetaminophen (Tylenol Tab*) 650 mg PO Q4H PRN PRN Reason: FEVER/PAIN Last Admin: 06/10/16 06:58 Dose: 650 mg Al Hydrox/Mg Hydrox/Simethicone (Maalox Plus*) 30 ml PO Q4H PRN PRN Reason: INDIGESTION Albuterol/Ipratropium (Duoneb (Albuterol 2.5 Mg/Ipratropium 0.5 Mg)) 1 neb INH Q4H PRN PRN Reason: SHORTNESS OF BREATH Amlodipine Besylate (Norvasc Tab*) 5 mg PO DAILY [facility] Last Admin: 06/10/16 09:28 Dose: 5 mg Ascorbic Acid (Vitamin C Tab*) 500 mg PO DAILY [facility] Last Admin: 06/10/16 09:29 Dose: 500 mg Aspirin (Aspirin Low Dose Tab*) 81 mg PO DAILY [facility] Last Admin: 06/10/16 09:28 Dose: 81 mg Atorvastatin Calcium (Lipitor*) 40 mg PO BEDTIME [facility] Last Admin: 06/10/16 21:19 Dose: 40 mg Digoxin (Lanoxin Tab*) 0.125 mg PO DAILY [facility] Last Admin: 06/10/16 09:29 Dose: 0.125 mg Docusate Sodium (Colace Cap*) 100 mg PO BID PRN PRN Reason: CONSTIPATION Famotidine (Pepcid Tab*) 20 mg PO BID [facility] PRN Reason: Protocol Last Admin: 06/10/16 21:19 Dose: 20 mg Ferrous Sulfate (Ferrous Sulfate Tab*) 325 mg PO DAILY [facility] Last Admin: 06/10/16 09:28 Dose: 325 mg Finasteride (Proscar Tab*) 5 mg PO DAILY [facility] Last Admin: 06/10/16 09:28 Dose: 5 mg Heparin Sodium (Porcine) (Heparin Vial(*)) 5,000 units SUBCUT Q8HR [facility] Last Admin: 06/11/16 06:18 Dose: 5,000 units Sodium Chloride (Ns 0.9% 1000 Ml*) 1,000 mls @ 100 mls/hr IV PER RATE [facility] Last Admin: 06/11/16 06:19 Dose: 100 mls/hr Ceftriaxone Sodium 1,000 mg/ (Sodium Chloride) 50 mls @ 200 mls/hr IVPB Q24H [facility] Last Admin: 06/10/16 21:19 Dose: 200 mls/hr Mometasone Furoate/Formoterol Fumar (Dulera 200/5 Mdi*) 2 puff INH BID [facility] Last Admin: 06/11/16 08:51 Dose: 2 puff Multivitamins/Minerals (Theragran/Minerals Tab*) 1 tab PO DAILY [facility] Last Admin: 06/10/16 09:29 Dose: 1 tab Omeprazole (Prilosec Cap*) 20 mg PO DAILY@0730 [facility] PRN Reason: Protocol Last Admin: 06/10/16 09:28 Dose: 20 mg Ondansetron HCl (Zofran Inj*) 4 mg IV Q4H PRN PRN Reason: NAUSEA Last Admin: 06/10/16 07:06 Dose: 4 mg Polyethylene Glycol/Electrolytes (Miralax*) 17 gm PO BID PRN PRN Reason: CONSTIPATION Tamsulosin HCl (Flomax Cap*) 0.4 mg PO BEDTIME [facility] Last Admin: 06/10/16 21:19 Dose: 0.4 mg Tobramycin/Dexamethasone (Tobradex 0.3-0.1%*) 1 drop BOTH EYES TID [facility] Last Admin: 06/10/16 21:19 Dose: 1 drop Vital Signs 06/10/16 06/10/16 06/10/16 11:51 12:40 16:05 Temperature 98.8 F 98.8 F 98.9 F Pulse Rate 76 76 79 Respiratory 15 15 20 Rate Blood Pressure 110/58 110/58 115/54 (mmHg) O2 Sat by Pulse 95 95 Oximetry 06/10/16 06/10/16 06/10/16 19:34 20:00 23:29 Temperature 98.6 F 99.0 F Pulse Rate 72 67 Respiratory 20 20 20 Rate Blood Pressure 119/58 115/56 (mmHg) O2 Sat by Pulse 95 97 Oximetry 04/22/17 04/22/17 04:10 07:50 Temperature 98.2 F 98.6 F Pulse Rate 64 56 Respiratory 18 16 Rate Blood Pressure 112/59 109/50 (mmHg) O2 Sat by Pulse 96 95 Oximetry Oxygen Devices in Use Now: None Appearance: Elderly male, lying in bed, in NAD Respiratory: Symmetrical Chest Expansion and Respiratory Effort, Clear to Auscultation Cardiovascular: NL Sounds; No Murmurs; No JVD, RRR Abdominal: NL Sounds; No Tenderness; No Distention Extremities: No Edema Skin: No Rash or Ulcers Neurological: Alert and Oriented x 3 Lines/Tubes/Other Access: Clean, Dry and Intact Peripheral IV Nutrition: Taking PO's Result Diagrams: 06/11/16 07:18 06/11/16 07:18 Microbiology and Other Data: Microbiology 06/09/16 21:24 Nasal Screen MRSA (PCR)([facility]) - Final Nasal Mrsa Positive Assess/Plan/Problems-Billing Assessment: Mr. Hare is an 86 yo male with a PMH of COPD, GERD, HLD, HTN, legal blindness , AAA and PAF who was referred to the ED on 06/09/16 with concern for confusion, hypotension, and low O2 saturation. - Patient Problems (1) Altered mental status Code(s): R41.82 - ALTERED MENTAL STATUS, UNSPECIFIED Comment: Resolved, suspect secondary to acute illness Suspicion for UTI, continue ceftriaxone while awaiting cultures Will switch to PO cefuroxime for discharge Afebrile overnight No further hypoxia No blood cx growth thus far (2) Nausea, vomiting, and diarrhea Code(s): R11.2 - NAUSEA WITH VOMITING, UNSPECIFIED; R19.7 - DIARRHEA, UNSPECIFIED Comment: Resolved, suspect mild viral gastroenteritis Prn antiemetics and supportive care (3) UTI (urinary tract infection) Current Visit: Yes Comment: UA positive for leukocyte esterase, urine cx pending Previous urine cultures show resistance to cipro, levofloxacin Allergy to sulfa drugs Will continue patient on cefuroxime for 10 day course (4) Elevated troponin Code(s): R74.8 - ABNORMAL LEVELS OF OTHER SERUM ENZYMES Comment: Patient denies chest pain Trop 0.04, which appears to be within patient's baseline (5) HTN (hypertension) Code(s): I10 - ESSENTIAL (PRIMARY) HYPERTENSION Comment: Normotensive Continue amlodipine. (6) Paroxysmal atrial fibrillation Code(s): I48.0 - PAROXYSMAL ATRIAL FIBRILLATION Comment: Sinus rhythm Not on chronic anticoagulation Continue digoxin (7) GERD (gastroesophageal reflux disease) Code(s): K21.9 - GASTRO-ESOPHAGEAL REFLUX DISEASE WITHOUT ESOPHAGITIS Comment : Continue ranitidine and PPI. (8) BPH (benign prostatic hyperplasia) Code(s): N40.0 - BENIGN PROSTATIC HYPERPLASIA WITHOUT LOWER URINRY TRACT SYMP Comment: Continue home finasteride and tamsulosin. (9) COPD (chronic obstructive pulmonary disease) Code(s): J44.9 - CHRONIC OBSTRUCTIVE PULMONARY DISEASE, UNSPECIFIED Comment: Stable Continue Dulera, prn nebulizer treatments No hypoxia noted, on room air with O2 sats >93% (10) HLD (hyperlipidemia) Code(s): E78.5 - HYPERLIPIDEMIA, UNSPECIFIED Comment: Continue atorvastatin. (11) DVT prophylaxis Code(s): [id number] - Comment: SQ heparin Status and Disposition: OBV to inpatient admission. D/c to home when medically stable. Will continue to monitor for fever and ability to take PO prior to d/c.
[2016-06-11] MEDS: Omeprazole CAP* 20 MG PO SCH (09:31)
[2016-06-11] MEDS: Finasteride TAB* 5 MG PO SCH (09:32)
[2016-06-11] MEDS: Ferrous Sulfate TAB* 325 MG PO SCH (09:32)
[2016-06-11] MEDS: Aspirin Low Dose CHEW TAB* 81 MG PO SCH (09:32)
[2016-06-11] MEDS: Ascorbic Acid TAB* 500 MG PO SCH (09:32)
[2016-06-11] MEDS: Multivitamins/Minerals TAB PO SCH (09:32)
[2016-06-11] MEDS: Famotidine TAB* 20 MG PO SCH (09:32)
[2016-06-11] MEDS: Tobramycin/Dexameth OPTH.SUSP* 2.5 M L BTL BOTH EYES SCH (09:39)
[2016-06-11] MEDS: Digoxin TAB* 0.25 MG PO SCH (09:39)
[2016-06-11] MEDS: amLODIPine TAB* 5 MG PO SCH (09:39)
[2016-06-11] MEDS ORDERED: ceFUROXime TAB(*) 250 MG PO SCH (10:00)
--- NOTE | 2016-06-14 00:06 | DS ---
MEDICINE DISCHARGE SUMMARY: DATE OF ADMISSION: 06/09/16 DATE OF DISCHARGE: 06/11/16 PRIMARY CARE PROVIDER: REGINALDO Castellano PROVIDER: Mary Malcolm NP ATTENDING PHYSICIAN: Dr. Bee Andino *(as dictated by Mary Malcolm NP). PRIMARY DISCHARGE DIAGNOSES: 1. Altered mental status. 2. Nausea, vomiting and diarrhea, likely secondary to gastroenteritis. 3. Urinary tract infection. SECONDARY DISCHARGE DIAGNOSES: 1. Gastroesophageal reflux disease. 2. Chronic obstructive pulmonary disease. 3. Hyperlipidemia. 4. Legally blind. 5. Abdominal aortic aneurysm. 6. Hypertension. 7. Benign prostatic hypertrophy. 8. 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 9. Paroxysmal atrial fibrillation. MEDICATIONS AT DISCHARGE: 1. Ascorbic acid 500 mg daily. 2. Ensure 1 can b.i.d. with snacks. 3. Esomeprazole 20 mg daily. 4. TobraDex eyedrops 1 drop to both eyes t.i.d. 5. MiraLAX 17 g b.i.d. p.r.n. 6. DuoNeb 1 nebulizer treatment q.4 hours p.r.n. 7. Maalox Plus 30 mL q.4 hours p.r.n. 8. Colace 100 mg b.i.d. p.r.n. 9. Atorvastatin 40 mg at bedtime. 10. Tamsulosin 0.4 mg at bedtime. 11. Tylenol PM 1 tablet at bedtime. 12. Aspirin 81 mg daily. 13. Advair 250/50 one puff inhaled b.i.d. 14. Finasteride 5 mg daily. 15. Multivitamin 1 tab daily. 16. Ferrous sulfate 325 mg daily. 17. Meloxicam 15 mg daily. 18. Digoxin 0.125 mg daily. 19. Amlodipine 5 mg daily. 20. Ranitidine 150 mg b.i.d. 21. Cefuroxime 250 mg b.i.d. This is a new medication. HOSPITAL COURSE OF STAY: For full details, please refer to the H and P provided by Lacie Moralez NP and the full medical record. In summary, Mr. Hare is an 86-year-old male, who presented to the ED for evaluation after [facility] staff noted that the patient appeared to be clammy and confused. They report that he had an oxygen saturation level of 70% on room air, a blood pressure of 81/56, and a heart rate of 69. Here at the hospital, the patient's room air had improved to slightly 98%. His blood pressure improved as well. In the ER, the patient denied any acute complaints. He did seem to have some notable confusion that was mild. He also had a UA that was significant for 3+ leukocyte esterase, 3+ wbc's, and 1+ bacteria. He was admitted under observation status and was started on antibiotics for suspected UTI. He was also found to have a mildly elevated troponin at 0.04, but the patient was adamant that he had no chest pain and his troponin actually appears to be within his baseline. The following day, the patient reported diarrhea x3 episodes overnight and in the morning as well as 1 to 2 episodes of emesis; however, over the course of the day, he continued to improve and no further diarrhea was noted, he was able to have a normal bowel movement, and was able to tolerate p.o. intake. On 06/11/16, the patient was requesting to go home and stated that he felt much better. He denied any abdominal pain, nausea, vomiting, diarrhea. He is eating well. We did get the patient out of bed and ambulate him and he did well with nursing staff and with standby assist only. Due to the patient's presentation with his confusion and concern for his vital signs, we have continued him on the antibiotics to complete a 10-day course of treatment. Urine culture is still pending, but is showing preliminary growth of E. coli. The patient will require followup with his PCP in order to make sure that the antibiotics chosen are covering the patient's bacteria. CONCERNS AT DISCHARGE: Mr. Hare will be discharged back to [facility] on . He is to follow up with his PCP next week. Again, the patient should have urine sensitivities checked by his PCP in order to make sure antibiotic appropriateness. DIET: May resume regular diet. ACTIVITY: As tolerated. CONDITION: Stable. DISPOSITION: To home at [facility]. TIME SPENT: Time spent on this discharge was approximately 40 minutes. Again, this is only a brief summary of the patient's hospital course of stay. For full details, please refer to the full medical record. If you have any questions or need further assistance, please feel free to contact me at . MARY MALCOLM NP CC: REGINALDO Castellano * [id number]/[facility]PS #: [id number] MTDD
== END 2016-06-11 13:45 | disposition home or self-care (01) | DRG 690 ==
LOC: EEVIPCON 15:05 → ED 15:05 → MED 19:27 → OBSVTOIN 06-10 11:40
PROVIDERS: ADMIT Internal Medicine; ATTEND Internal Medicine
DX: N39.0 Urinary tract infection, site not specified (principal); I95.9 Hypotension, unspecified; J44.9 Chronic obstructive pulmonary disease, unspecified; I48.0 Paroxysmal atrial fibrillation; I25.2 Old myocardial infarction; I10 Essential (primary) hypertension; K21.9 Gastro-esophageal reflux disease without esophagitis; N40.0 Benign prostatic hyperplasia without lower urinary tract symptoms; H91.90 Unspecified hearing loss, unspecified ear; H54.8 Legal blindness, as defined in USA; H26.9 Unspecified cataract; F17.200 Nicotine dependence, unspecified, uncomplicated; R40.2362 Coma scale, best motor response, obeys commands, at arrival to emergency department; R40.2142 Coma scale, eyes open, spontaneous, at arrival to emergency department; R40.2252 Coma scale, best verbal response, oriented, at arrival to emergency department; E78.5 Hyperlipidemia, unspecified; R79.89 Other specified abnormal findings of blood chemistry; Z66 Do not resuscitate; I71.4 Abdominal aortic aneurysm, without rupture; K52.9 Noninfective gastroenteritis and colitis, unspecified; B96.20 Unspecified Escherichia coli [E. coli] as the cause of diseases classified elsewhere; Z88.1 Allergy status to other antibiotic agents; Z88.2 Allergy status to sulfonamides; Z82.49 Family history of ischemic heart disease and other diseases of the circulatory system; Z79.82 Long term (current) use of aspirin
CPT/HCPCS: 36415; 71020; 80048; 80053; 81003; 81015; 83605; 83735; 84443; 84484; 85025; 85610; 87040; 87045; 87046; 87077; 87086; 87186; 87641; 87899; 93005; 94640; 96372; 96374; A9270-GY; G0378; J0692; J0696; J1644; J2405

== ENCOUNTER 2016-08-17 14:03 | Observation (INO) | payer MEDICARE, MEDICAID ==
[2016-08-17] MEDS ORDERED: Acetaminophen TAB* 325 MG PO ONE (14:33)
[2016-08-17] MEDS: NS 0.9% 1000 ML* 2,000 ML IV ONE ×2 (14:55→15:43)
[2016-08-17 15:01] LABS: Hematocrit 44 % (42-52); Hemoglobin 14.2 g/dl (14.0-18.0); Mean Corpuscular HGB Conc 33 g/dl (31-36); Mean Corpuscular Hemoglobin 31 pg (27-31); Mean Corpuscular Volume 95 fL (80-94); Mean Platelet Volume 8 um3 (7.4-10.4); Red Blood Count 4.59 10^6/ul (4.0-5.4); Red Cell Distribution Width 14 % (10.5-15); White Blood Count 16.6 10^3/ul (3.5-10.8)
[2016-08-17 15:18] LABS: BUN/Creatinine Ratio 30.1 (8-20); Calcium 9.4 mg/dL (8.6-10.3); EGFR African American 113.5 (>60); EGFR Non-African American 88.3 (>60); Globulin 2.8 g/dL (2-4); Potassium 4.2 mmol/L (3.5-5.0); Total Bilirubin 1.6 mg/dL (0.2-1.0); Total Protein 6.8 g/dL (6.4-8.9)
[2016-08-17 15:25] LABS: Troponin I 0.05 ng/mL (<0.04)
--- NOTE | 2016-08-17 15:35 | RAD ---
Indication: Syncope, fever, pneumonia. Comparison: June 09, 2016 Technique: Upright AP 1510 hours Report: Elevated lung volumes and both diffuse mild prominence of the interstitial markings and patchy rarefaction of the mid to upper lung zone interstitial markings. No superimposed alveolar consolidation, focal pulmonary lesion, pleural effusion, pneumothorax. The heart, pulmonary vasculature, and mediastinal contours are unremarkable. IMPRESSION: Stigmata of obstructive lung disease. No acute pulmonary or cardiac process evident.
[2016-08-17] MEDS ORDERED: Albuterol/Ipratropium NEB.SOL* Albuterol 2.5 MG/Ipratropium 0.5 MG 3 ML INH PRN (16:11)
[2016-08-17] MEDS ORDERED: Polyethylene Glycol 3350* 17 GM PACKET PO PRN (16:11)
[2016-08-17] MEDS ORDERED: Al Hydrox/Mg Hydrox/Simet LIQ* 30 ML UDC PO PRN (16:11)
[2016-08-17] MEDS ORDERED: Docusate CAP* 100 MG PO PRN (16:11)
[2016-08-17] MEDS ORDERED: NON FORMULARY MED* (Nutritional Supplements [Ensure] 1 CAN) PO SCH (16:15)
--- NOTE | 2016-08-17 16:39 | ED ---
Junie Dacosta SooYoung, scribed for Paul Zapata MD on 08/17/16 at 1417 . Syncope/Near Syncope - HPI Summary HPI Summary: LEVEL 5 CAVEAT: HPI LIMITED DUE TO PT CONDITION, UNRELIABLE NARRATOR. An 86 y/o M CARLEY presents to ED after syncopal episode at PCP's office today. Associated sx: vomiting, lightheadedness, dizziness, fever. Denies CP, SOB, diarrhea, head trauma. Does not recall being at PCP today. Lives in assisted living. Smoker. PCP is Dr. Garza. - History Of Current Complaint Chief Complaint: EDSyncope Time Seen by Provider: 08/17/16 14:16 Hx Obtained From: Patient Onset/Duration: Sudden Onset, Resolved Aggravating Factor(s): Position Change Associated Signs And Symptoms: Dizzy, Lightheadedness, Vomiting, Other - pos: fever - Allergies/Home Medications Allergies/Adverse Reactions: Allergies Allergy/AdvReac Type Severity Reaction Status Date / Time Erythromycin Allergy Unknown Unknown Verified 04/16/16 07:39 Reaction Details Sulfa Drugs Allergy Unknown Unknown Verified 04/16/16 07:39 Reaction Details Azithromycin Allergy Unknown Verified 04/16/16 07:39 Reaction Details Home Medications: Home Medications Finasteride TAB* [Proscar TAB*] 5 mg PO DAILY 08/17/16 [History Confirmed ] Omeprazole CAP* [Prilosec CAP* 20 MG] 20 mg PO DAILY 08/17/16 [History Confirmed 08/17/16] PMH/Surg Hx/FS Hx/Imm Hx Previously Healthy: No Endocrine/Hematology History: Denies: Hx Anticoagulant Therapy, Hx Diabetes, Hx Thyroid Disease, Other Endocrine/Hematological Disorders Cardiovascular History: Reports: Hx Aneurysm, Hx Hypertension Denies: Hx Pacemaker/ICD, Hx Peripheral Vascular Disease, Other Cardiovascular Problems/Disorders Respiratory History: Reports: Hx Chronic Obstructive Pulmonary Disease (COPD) Denies: Hx Asthma, Other Respiratory Problems/Disorders GI History: Reports: Hx Gastroesophageal Reflux Disease Denies: Other GI Disorders History: Reports: Hx Benign Prostatic Hyperplasia Denies: Hx Renal Disease, Other Problems/Disorders Musculoskeletal History: Denies: Hx Arthritis, Hx Osteoporosis, Other Musculoskeletal History Sensory History: Reports: Hx Cataracts, Hx Legally Blind, Hx Vision Problem, Hx Hearing Problem Denies: Hx Contacts or Glasses, Hx Hearing Aid, Other Sensory Impairments Opthamlomology History: Reports: Hx Cataracts, Hx Legally Blind, Hx Vision Problem Denies: Hx Contacts or Glasses, Other Sensory Impairments Neurological History: Denies: Hx Dementia, Hx Headaches, Hx Seizures, Hx Transient Ischemic Attacks (TIA), Other Neuro Impairments/Disorders Psychiatric History: Denies: Hx Substance Abuse, Other Psychiatric Issues/Disorders Infectious Disease History: No Infectious Disease History: Denies: Hx Clostridium Difficile, Hx Hepatitis, Hx Human Immunodeficiency Virus (HIV), Traveled Outside the [place] in Last 30 Days - Family History Known Family History: Positive: Hypertension - mother - Social History Occupation: Retired Lives: Assisted Living - [facility] Alcohol Use: None Hx Substance Use: No Substance Use Type: Reports: None Hx Tobacco Use: Yes Smoking Status (MU): Light Every Day Tobacco Smoker Type: Pipe Have You Smoked in the Last Year: Yes Review of Systems Positive: Fever Negative: Chest Pain Negative: Shortness Of Breath Positive: Vomiting. Negative: Diarrhea Musculoskeletal: Other Neurological: Other - neg: head trauma Positive: Syncope All Other Systems Reviewed And Are Negative: Yes Physical Exam - Summary Physical Exam Summary: The patient is well-nourished in no acute distress and in no acute pain. The skin turgor is decreased, warm, dry and skin color reflects adequate perfusion. HEENT: The head is normocephalic and atraumatic. L pupil is pinpoint, R pupil is cloudy and undiscernible.. The conjunctivae are clear and without drainage. Nares are patent and without drainage. Mouth reveals dry mucous membranes and the throat is without erythema and exudate. The external ears are intact. The ear canals are patent and without drainage. The tympanic membranes are intact. Neck is supple with full range of motion and non-tender. There are no carotid bruits. There is no neck vein distension. Respiratory: Chest is non-tender. Lungs are clear to auscultation and breath sounds are symmetrical and equal. Cardiovascular: Heart is regular rate and rhythm. There is no murmur or rub auscultated. There is no peripheral edema and pulses are symmetrical and equal. Abdomen: The abdomen is soft and non-tender. There are normal bowel sounds heard in all four quadrants and there is no organomegaly palpated. Musculoskeletal: There is no back pain noted. Extremities are non-tender with full range of motion. 3 seconds capillary refill. There is no peripheral edema or calf tenderness elicited. Neurological: Patient is alert and oriented to person, place. Cranial nerves are grossly intact. Psychiatric: The patient has an appropriate affect and does not exhibit any anxiety or depression. Triage Information Reviewed: Yes Vital Signs On Initial Exam: Initial Vitals Temp Pulse Resp BP Pulse Ox 99.2 F 91 17 129/100 98 08/17/16 14:04 08/17/16 14:04 08/17/16 14:04 08/17/16 14:04 08/17/16 14:04 Vital Signs Reviewed: Yes Diagnostics - Vital Signs Vital Signs Temp Pulse Resp BP Pulse Ox 08/17/16 14:08 99.2 F 86 17 129/100 97 08/17/16 14:04 99.2 F 91 17 129/100 98 - Laboratory Lab Results: Lab Results 08/17/16 08/17/16 08/17/16 Range/Units 14:50 14:50 14:50 WBC 16.6 H (3.5-10.8) 10^3/ul RBC 4.59 (4.0-5.4) 10^6/ul Hgb 14.2 (14.0-18.0) g/dl Hct 44 (42-52) % MCV 95 H (80-94) fL MCH 31 (27-31) pg MCHC 33 (31-36) g/dl RDW 14 (10.5-15) % Plt Count 182 (150-450) 10^3/ul MPV 8 (7.4-10.4) um3 Neut % (Auto) 92.4 H (38-83) % Lymph % (Auto) 2.3 L (25-47) % Bulloch % (Auto) 5.0 (1-9) % Eos % (Auto) 0.1 (0-6) % Baso % (Auto) 0.2 (0-2) % Absolute Neuts (auto) 15.4 H (1.5-7.7) 10^3/ul Absolute Lymphs (auto) 0.4 L (1.0-4.8) 10^3/ul Absolute Monos (auto) 0.8 (0-0.8) 10^3/ul Absolute Eos (auto) 0 (0-0.6) 10^3/ul Absolute Basos (auto) 0 (0-0.2) 10^3/ul Absolute Nucleated RBC 0.01 10^3/ul Nucleated RBC % 0 INR (Anticoag Therapy) 1.01 (0.89-1.11) APTT 27.4 (26.0-36.3) seconds Sodium 128 L (133-145) mmol/L Potassium 4.2 (3.5-5.0) mmol/L Chloride 96 L (101-111) mmol/L Carbon Dioxide 24 (22-32) mmol/L Anion Gap 8 (2-11) mmol/L BUN 25 H (6-24) mg/dL Creatinine 0.83 (0.67-1.17) mg/dL Est GFR ( Amer) 113.5 (>60) Est GFR (Non-Af Amer) 88.3 (>60) BUN/Creatinine Ratio 30.1 H (8-20) Glucose 133 H (70-100) mg/dL Lactic Acid (0.5-2.0) mmol/L Calcium 9.4 (8.6-10.3) mg/dL Total Bilirubin 1.60 H (0.2-1.0) mg/dL AST 35 (13-39) U/L ALT 23 (7-52) U/L Alkaline Phosphatase 122 H (34-104) U/L Total Creatine Kinase 57 (10-223) U/L Troponin I 0.05 H* (<0.04) ng/mL B-Natriuretic Peptide ( - 100) pg/mL Total Protein 6.8 (6.4-8.9) g/dL Albumin 4.0 (3.2-5.2) g/dL Globulin 2.8 (2-4) g/dL Albumin/Globulin Ratio 1.4 (1-3) 08/17/16 08/17/16 Range/Units 14:50 14:50 WBC (3.5-10.8) 10^3/ul RBC (4.0-5.4) 10^6/ul Hgb (14.0-18.0) g/dl Hct (42-52) % MCV (80-94) fL MCH (27-31) pg MCHC (31-36) g/dl RDW (10.5-15) % Plt Count (150-450) 10^3/ul MPV (7.4-10.4) um3 Neut % (Auto) (38-83) % Lymph % (Auto) (25-47) % Bulloch % (Auto) (1-9) % Eos % (Auto) (0-6) % Baso % (Auto) (0-2) % Absolute Neuts (auto) (1.5-7.7) 10^3/ul Absolute Lymphs (auto) (1.0-4.8) 10^3/ul Absolute Monos (auto) (0-0.8) 10^3/ul Absolute Eos (auto) (0-0.6) 10^3/ul Absolute Basos (auto) (0-0.2) 10^3/ul Absolute Nucleated RBC 10^3/ul Nucleated RBC % INR (Anticoag Therapy) (0.89-1.11) APTT (26.0-36.3) seconds Sodium (133-145) mmol/L Potassium (3.5-5.0) mmol/L Chloride (101-111) mmol/L Carbon Dioxide (22-32) mmol/L Anion Gap (2-11) mmol/L BUN (6-24) mg/dL Creatinine (0.67-1.17) mg/dL Est GFR ( Amer) (>60) Est GFR (Non-Af Amer) (>60) BUN/Creatinine Ratio (8-20) Glucose (70-100) mg/dL Lactic Acid 1.8 (0.5-2.0) mmol/L Calcium (8.6-10.3) mg/dL Total Bilirubin (0.2-1.0) mg/dL AST (13-39) U/L ALT (7-52) U/L Alkaline Phosphatase (34-104) U/L Total Creatine Kinase (10-223) U/L Troponin I (<0.04) ng/mL B-Natriuretic Peptide 96 ( - 100) pg/mL Total Protein (6.4-8.9) g/dL Albumin (3.2-5.2) g/dL Globulin (2-4) g/dL Albumin/Globulin Ratio (1-3) Result Diagrams: 08/17/16 14:50 08/17/16 14:50 Lab Statement: Any lab studies that have been ordered have been reviewed, and results considered in the medical decision making process. - Radiology CXR Xray Interpretation: No Acute Changes Radiology Interpretation Completed By: ED Physician - EKG 1 Cardiac Rate: NL ST Segment: Non-Specific EKG Interpretation: poor R wave progression, nml axis Course/Dx Course Of Treatment: Pt is an 86 y/o M BIBA after syncopal episode at PCP's office today. Associated sx: vomiting, lightheadedness, dizziness. Denies CP, SOB, diarrhea, head trauma. Unreliable narrator, pt does not recall being at PCP today. Lives in assisted living. Smoker. Pt given fluids, Tylenol in ED. Trop is 0.05. CXR shows no acute findings. Consulted with hospitalist, will admit pt. - Diagnoses Differential Diagnosis/HQI/PQRI: Positive: Hypovolemia, Metabolic Reaction, Other - uti, mi, dehydration Provider Diagnoses: Altered mental status, Fever - Physician Notifications Discussed Care of Patient With: Shashank Villa - hospitalist Time Discussed With Above Provider: 15:20 Instructed by Provider To: Admit As Inpatient - begin ABX, will admit pt Discharge - Discharge Plan Condition: Stable Disposition: ADMITTED TO [facility] Referrals: Non Staff,Doctor [Primary Care Provider] - [facility] PH[facility]IAN REFERRAL [Outside] The documentation as recorded by the Junie bonilla SooYoung accurately reflects the service I personally performed and the decisions made by me, Paul Zapata MD.
[2016-08-17 16:40] LABS: Urine Bacteria 1+ (Absent); Urine Bilirubin Negative (Negative); Urine Glucose Negative (Negative); Urine Nitrite Negative (Negative)
[2016-08-17] MEDS ORDERED: Enoxaparin(*) 40 MG/0.4 ML SYR SUBCUT SCH (17:00)
[2016-08-17] MEDS ORDERED: Ondansetron INJ* 2 MG/ML VIAL IV SCH (17:00)
[2016-08-17] MEDS: NS 0.9% 1000 ML* 1,000 ML IV SCH (18:00)
[2016-08-17] MEDS: Tobramycin/Dexameth OPTH.SUSP* 2.5 M L BTL BOTH EYES SCH (20:39)
[2016-08-17] MEDS: Famotidine TAB* 20 MG PO SCH (20:39)
[2016-08-17] MEDS ORDERED: Ondansetron INJ* 2 MG/ML VIAL IV PRN (20:42)
[2016-08-17] MEDS ORDERED: Tamsulosin CAP* 0.4 MG PO SCH (21:00)
[2016-08-17] MEDS ORDERED: Atorvastatin* 40 MG TAB PO SCH (21:00)
[2016-08-17] MEDS ORDERED: cefTRIAXone VIAL(*) 1,000 MG in NS 0.9% 50 ML* 50 ML IVPB SCH (22:00)
--- NOTE | 2016-08-18 02:43 | HP ---
HISTORY AND PHYSICAL: DATE OF ADMISSION: 08/17/16 PRIMARY CARE PHYSICIAN: REGINALDO Castellano CHIEF COMPLAINT: Vomiting and syncope. HISTORY OF PRESENT ILLNESS: Mr. Hare is an 86-year-old male with past medical history of blindness, hypertension, hyperlipidemia, GERD, COPD, AAA, BPH , paroxysmal atrial fibrillation, and a history of demand mediated NSTEMI, who presented to the hospital with nausea, vomiting, and syncopal episode. History was obtained from the patient's chart as well as from the ED providers as the patient seems to be a bit confused at present. It seemed that the patient was in his usual state of health and today he had a routine appointment at his PCP office. He states he ate his lunch and after arriving at the PCP office, he was walking on the ramp outside and he recalls an episode of nausea and vomiting then he proceeded to have a syncopal episode. The patient does not recall anything surrounding the syncopal event, did not recall any symptoms leading up to the episode. He denies any chest pain, shortness of breath, palpitations. He states he has had a dry cough for a few weeks. He has been on antibiotics in the past for the cough, although cannot remember the last time. Denies any diarrhea. He has had some constipation. The patient is a resident of [facility]. In the emergency department, he was found to have an elevated white blood cell count of 16 and a temperature of 101.7, and the hospitalist service was consulted to evaluate the patient for admission. PAST MEDICAL HISTORY: 1. Hypertension. 2. AAA. 3. BPH. 4. Demand mediated NSTEMI in February 2015. 5. Paroxysmal atrial fibrillation. 6. GERD. 7. COPD. 8. Hyperlipidemia. 9. Blindness. PAST SURGICAL HISTORY: Tonsillectomy. HOME MEDICATIONS: 1. Norvasc 5 mg by mouth daily. 2. Aspirin 81 mg by mouth daily. 3. Digoxin 0.125 mg by mouth daily. 4. Colace 100 mg by mouth 2 times daily as needed for constipation. 5. Omeprazole 20 mg by mouth daily. 6. Multivitamin 1 tablet by mouth daily. 7. Ranitidine 150 mg by mouth 2 times daily. 8. Tylenol PM 1 tablet by mouth at bedtime. 9. Finasteride 5 mg by mouth daily. 10. Vitamin C 500 mg by mouth daily. 11. Atorvastatin 40 mg by mouth at bedtime. 12. Meloxicam 15 mg by mouth daily. 13. Ferrous sulfate 325 mg by mouth daily. 14. Flomax 0.4 mg by mouth at bedtime. 15. DuoNeb 1 neb inhaled every 4 hours as needed for shortness of breath or wheezing. 16. Finasteride 5 mg by mouth daily. 17. Maalox Plus 30 mL by mouth every 4 hours as needed for indigestion. 18. MiraLAX 17 g by mouth 2 times daily as needed for constipation. 19. Ensure 1 can by mouth two times daily . 20. TobraDex 1 drop in both eyes 3 times daily. ALLERGIES: ERYTHROMYCIN, SULFA, and AZITHROMYCIN. FAMILY HISTORY: Significant for mother with hypertension. SOCIAL HISTORY: The patient is a resident in [facility] in [place]. Reports smoking 1 pipe every day. He denies any alcohol or illicit drug use. REVIEW OF SYSTEMS: A 12-point review of systems negative except for that as noted in the HPI. PHYSICAL EXAMINATION GENERAL: The patient is an elderly male, lying in bed, in no apparent distress. VITAL SIGNS: On admission, temperature 99.2 and subsequently 101.7, heart rate of 91, respiratory rate of 17, O2 saturation 98% on room air, blood pressure 129 /100. HEENT: Head normocephalic, atraumatic. Eyes: The patient's right eye is cloudy, blind in both eyes. ENT: Dry mucous membranes. NECK: No cervical adenopathy. LUNGS: Diminished at the bases. Prolonged expiratory phase. No wheezing appreciated. CARDIOVASCULAR: Regular rate and rhythm. S1 and S2 present. No murmurs, gallops, or rubs. ABDOMEN: Soft, nontender, and nondistended. Bowel sounds are positive. EXTREMITIES: No cyanosis, clubbing, or edema. NEURO: The patient is alert, oriented to self and [facility]. Cannot tell me the year or the month or the day of week. No focal neurological deficits. SKIN: Warm, dry, and well perfused. LABORATORY DATA AND DIAGNOSTIC STUDIES: White blood cell count of 16, hematocrit of 44, platelets of 182. INR 1.01. Sodium of 128, potassium 4.2, chloride of 96, carbon dioxide 24, BUN of 25, creatinine 0.83, glucose of 133, lactic acid of 1.8, calcium of 9.4, total bilirubin 1.6. AST 35, ALT 23, alk phos of 122. CK of 57. Troponin of 0.05. EKG personally reviewed shows normal sinus rhythm with PVC, T-wave flattening in 1 AVL and lateral leads, which are not new. Chest x-ray personally reviewed shows some chronic changes, although no acute consolidations noted. ASSESSMENT AND PLAN: Nausea, vomiting, syncopal episode possibly due to underlying UTI in an 86-year-old male with a past medical history of hypertension, hyperlipidemia, chronic obstructive pulmonary disease, gastroesophageal reflux disease, blindness, abdominal aortic aneurysm, benign prostatic hypertrophy, demand mediated NSTEMI, and paroxysmal atrial fibrillation. 1. Nausea and vomiting. The patient has no further episodes here. He had a similar presentation the last time he was hospitalized and ended up having UTI that admission. I am not seeing anything convincing on the patient's chest x- ray and he is currently refusing to give a urine sample. We will continue to push him to allow a straight cath as he has been unable to go in the urinal. The patient received Zosyn in the emergency department. We will continue him on ceftriaxone for now as he has grown Escherichia coli, sensitive to this in the past. Blood pressures are stable. We will continue with IV fluids for now. 2. Syncope, unclear etiology of this. The patient has a mild troponin elevation, although this is a chronic issue for him. We will continue to trend the troponin and check orthostatic vital signs. It sounds like this occurred on the way into the PCP office or perhaps he just became orthostatic after standing up or walking towards the door. We will continue to monitor the patient on telemetry to evaluate for any arrhythmias. 3. Chronic obstructive pulmonary disease. No wheezing appreciated. The patient is not hypoxic. Continue home p.r.n. DuoNebs. 4. Hypertension. Hold the patient's home amlodipine for now. 5. History of paroxysmal atrial fibrillation. Continue aspirin, digoxin. 6. Benign prostatic hypertrophy. Continue home Flomax and Proscar. 7. Gastroesophageal reflux disease. Continue PPI and H2 fide. 8. DVT prophylaxis. Lovenox subcu. 9. Code status. The patient is a do not resuscitate, confirmed from his paperwork from [facility] and with the patient's surrogate decision maker, ____ __ Alem Rivera, phone number is [phone]. TIME SPENT: Total time spent on this admission 45 minutes with over half the time spent [id number] with the patient in counseling and coordinating care. [id number]/[facility] #: [id number] CHRISTIAN
[2016-08-18 04:14] LABS: Hematocrit 36 % (42-52); Hemoglobin 12.1 g/dl (14.0-18.0); Mean Corpuscular HGB Conc 34 g/dl (31-36); Mean Corpuscular Hemoglobin 32 pg (27-31); Mean Corpuscular Volume 96 fL (80-94); Mean Platelet Volume 8 um3 (7.4-10.4); Red Blood Count 3.75 10^6/ul (4.0-5.4); Red Cell Distribution Width 14 % (10.5-15); White Blood Count 10.2 10^3/ul (3.5-10.8)
[2016-08-18 04:18] LABS: BUN/Creatinine Ratio 36.4 (8-20); Calcium 8.6 mg/dL (8.6-10.3); EGFR African American 106.1 (>60); EGFR Non-African American 82.5 (>60)
[2016-08-18 04:32] VITALS: BP 105/53
[2016-08-18] MEDS ORDERED: Omeprazole CAP* 20 MG PO SCH (07:30)
[2016-08-18] MEDS: NS 0.9% 1000 ML* 1,000 ML IV SCH (08:21)
[2016-08-18] MEDS: Tobramycin/Dexameth OPTH.SUSP* 2.5 M L BTL BOTH EYES SCH (08:23)
[2016-08-18] MEDS: Famotidine TAB* 20 MG PO SCH (08:23)
[2016-08-18] MEDS ORDERED: Meloxicam(NF) 15 MG TAB PO SCH (09:00)
[2016-08-18] MEDS ORDERED: Aspirin Low Dose CHEW TAB* 81 MG PO SCH (09:00)
[2016-08-18] MEDS ORDERED: Ascorbic Acid TAB* 500 MG PO SCH (09:00)
[2016-08-18] MEDS ORDERED: Digoxin TAB* 0.125 MG PO SCH (09:00)
[2016-08-18] MEDS ORDERED: Ferrous Sulfate TAB* 325 MG PO SCH (09:00)
[2016-08-18] MEDS ORDERED: Multivitamins/Minerals TAB PO SCH (09:00)
[2016-08-18] MEDS ORDERED: Finasteride TAB* 5 MG PO SCH (09:00)
[2016-08-18] MEDS ORDERED: amLODIPine TAB* 5 MG PO SCH (09:00)
--- NOTE | 2016-08-18 09:03 | DCNOTE ---
Patient seen this morning. Says he feels much better although difficult qualifying what that means. Finished breakfast, no further N/V. Orthostatics negative although BPs have been a bit soft. On exam, RRR, s1 and s2 present, no m/g/r, abd soft, NTND, BS, lungs with some diminished BS throughout. No events on tele, troponins stable. UA positive. Will discharge today on oral ABx. Has grown E. coli every prior UCx, will send home on oral Keflex to complete
--- NOTE | 2016-08-18 15:58 | DS ---
CC: REGINALDO Castellano DATE OF ADMISSION: 08/17/2016. DATE OF DISCHARGE: 08/18/2016. PRIMARY CARE PROVIDER: REGINALDO Castellano. PRINCIPAL DISCHARGE DIAGNOSES: Nausea, vomiting, syncope, UTI. SECONDARY DIAGNOSES: Hypertension, BPH, paroxysmal atrial fibrillation, demand mediated NSTEMI in February 2015, AAA, GERD, COPD, hyperlipidemia, blindness. DISCHARGE MEDICATION REGIMEN: 1. Keflex 250 mg by mouth 4 times daily. 2. Aspirin 81 mg by mouth daily. 3. Digoxin 0.125 mg by mouth daily. 4. Colace 100 mg by mouth 2 times daily as needed for constipation. 5. Omeprazole 20 mg by mouth daily. 6. Multivitamin one tablet by mouth daily. 7. Ranitidine 150 mg by mouth 2 times daily. 8. Tylenol PM one tablet by mouth at bedtime. 9. Finasteride 5 mg by mouth daily. 10. Vitamin C 500 mg by mouth daily. 11. Atorvastatin 40 mg by mouth daily. 12. Mobic 15 mg by mouth daily. 13. Ferrous Sulfate 325 mg by mouth daily. 14. Tamsulosin 0.4 mg by mouth at bedtime. 15. DuoNeb one neb inhaled every 4 hours as needed for shortness of breath or wheezing. 16. Maalox Plus 30 ml by mouth every 4 hours as needed for indigestion. 17. MiraLax 17 gm by mouth 2 times daily as needed for constipation. 18. Nutritional supplements one can of Ensure twice daily and with snacks. 19. TobraDex one drop to both eyes 3 times daily. STUDIES DONE DURING HOSPITALIZATION: Chest x-ray: Impression: Stigmata of obstructive lung disease. No acute pulmonary or cardiac process evident. HISTORY OF PRESENT ILLNESS AND HOSPITAL SUMMARY: Please see my full history and physical for full details. Briefly, Mr. Hare is an 86-year-old man with a past medical history as above, who presented to the hospital after an episode of nausea, vomiting, and syncope, just arriving at his PCP office for a routine appointment. Here in the emergency department, the patient was noted to have an elevated white blood cell count of 16 and a temperature of 101.7. Urine showed signs of infection. He had a normal EKG and a mildly elevated troponin. The patient was admitted to the floor and was given IV fluids. Orthostatics were checked and were negative. He remained on telemetry with no events. Troponins remained minimally elevated and peaked at 0.06. The patient was started on antibiotics. By the following morning, he had significant improvement in his symptoms. No further nausea or vomiting here in the hospital. He is tolerating a diet and is very anxious to leave. He will be discharged on oral Keflex to complete a seven day course of antibiotics for his UTI. Total time spent on this discharge was 45 minutes. This is a summary of the hospitalization, please see the full medical record for further details. [id number]/[facility] #: [id number] MTDD
== END 2016-08-18 13:13 | disposition home or self-care (01) ==
LOC: ED 14:03 → MEDTELE 16:07
PROVIDERS: ADMIT Hospitalist; ATTEND Hospitalist
DX: R11.2 Nausea with vomiting, unspecified (principal); R55 Syncope and collapse; N39.0 Urinary tract infection, site not specified; I10 Essential (primary) hypertension; N40.0 Benign prostatic hyperplasia without lower urinary tract symptoms; I48.0 Paroxysmal atrial fibrillation; Z79.01 Long term (current) use of anticoagulants; Z79.82 Long term (current) use of aspirin; K21.9 Gastro-esophageal reflux disease without esophagitis; J44.9 Chronic obstructive pulmonary disease, unspecified; E78.5 Hyperlipidemia, unspecified; H54.0 Blindness, both eyes; Z88.1 Allergy status to other antibiotic agents; Z88.2 Allergy status to sulfonamides; Z79.899 Other long term (current) drug therapy
CPT/HCPCS: 36415; 71010; 80048; 80053; 80162; 81003; 81015; 82550; 83605; 83880; 84484; 85025; 85610; 85730; 87040; 87077; 87086; 87186; 87641; 93005; 96365; 99284; A9270-GY; G0378; J0696; J1650; J2405; J2543

== ENCOUNTER 2016-12-02 12:02 | Emergency (ER) | payer MEDICARE, MEDICAID ==
[2016-12-02] MEDS ORDERED: NS 0.9% 1000 ML* 500 ML IV ONE (12:41)
[2016-12-02] MEDS ORDERED: Ondansetron INJ* 2 MG/ML VIAL IV ONE (12:44)
[2016-12-02 13:16] LABS: Hematocrit 42 % (42-52); Hemoglobin 14.2 g/dl (14.0-18.0); Mean Corpuscular HGB Conc 34 g/dl (31-36); Mean Corpuscular Hemoglobin 32 pg (27-31); Mean Corpuscular Volume 94 fL (80-94); Mean Platelet Volume 7 um3 (7.4-10.4); Red Blood Count 4.44 10^6/ul (4.0-5.4); Red Cell Distribution Width 14 % (10.5-15); White Blood Count 14.9 10^3/ul (3.5-10.8)
[2016-12-02 13:29] LABS: Albumin 3.9 g/dL (3.2-5.2); BUN/Creatinine Ratio 30.5 (8-20); C Reactive Protein 8.61 mg/L (< 5.00); Calcium 9.7 mg/dL (8.6-10.3); EGFR African American 115.1 (>60); EGFR Non-African American 89.5 (>60); Globulin 2.7 g/dL (2-4); Total Bilirubin 1.6 mg/dL (0.2-1.0); Total Protein 6.6 g/dL (6.4-8.9)
[2016-12-02 13:33] LABS: Troponin I 0.04 ng/mL (<0.04)
[2016-12-02] MEDS ORDERED: Famotidine IV* 10 MG/ML 2 ML (20 mg) IV SLOW PU ONE (13:40)
--- NOTE | 2016-12-02 14:17 | RAD ---
INDICATION: Abdominal pain. COMPARISON: Comparison is made with a prior CT of the abdomen and pelvis from August 11, 2012. TECHNIQUE: Supine and a cubitus views of the abdomen were obtained. FINDINGS: The small bowel and colon appear nondistended. No free intraperitoneal air is seen. There is a moderate amount of retained stool present. There is a paucity of gas present in the central abdomen which appears to correlate with a relatively large abdominal aortic aneurysm on the prior CT study which measured 6.5 cm in transverse dimension at the time of the prior study. IMPRESSION: 1. NO EVIDENCE FOR OBSTRUCTION. 2. PAUCITY OF GAS IN THE CENTRAL ABDOMEN CORRELATING WITH A LARGE ABDOMINAL AORTIC ANEURYSM ON THE PRIOR CT STUDY. CONSIDER REPEAT IMAGING WITH ULTRASOUND TO ASSESS FOR SIZE CHANGE.
[2016-12-02 16:37] VITALS: BP 136/70
--- NOTE | 2016-12-03 18:49 | ED ---
Prosper Dacosta Thomas, scribed for Trenton Suazo MD on 12/02/16 at 1308 . Abdominal Pain/Male - HPI Summary HPI Summary: The patient is an 86 y/o F BIBA after he had a burning abd pain last night after drinking Ensure. However, he does not have any abd pain in the ED. He vomited twice last night. He denies nausea in the ED or any other complaints. He is blind in both eyes. - History of Current Complaint Chief Complaint: EDFever Stated Complaint: FLU LIKE SYPTOMS Time Seen by Provider: 12/02/16 12:12 Hx Obtained From: Patient Onset/Duration: Lasting Hours - onset of pain last night, Resolved Severity Initially: Moderate Severity Currently: None Pain Intensity: 0 Pain Scale Used: 0-10 Numeric Aggravating Factor(s): Food Alleviating Factor(s): Nothing Associated Signs And Symptoms: Positive: Vomiting - vomitted twice last night. Negative: Nausea - no nausea in the ED - Allergies/Home Medications Allergies/Adverse Reactions: Allergies Allergy/AdvReac Type Severity Reaction Status Date / Time Erythromycin Allergy Unknown Unknown Verified 04/16/16 07:39 Reaction Details Sulfa Drugs Allergy Unknown Unknown Verified 04/16/16 07:39 Reaction Details Azithromycin Allergy Unknown Verified 04/16/16 07:39 Reaction Details Home Medications: Home Medications Diphenhydramine-Acetaminophen [Tylenol Pm Extra Strength 500-25 mg] 1 tab PO BEDTIME 12/02/16 [History Confirmed 12/02/16] Esomeprazole(NF) [NEXium(NF)] 20 mg PO DAILY 12/02/16 [History Confirmed ] Fluticasone-Salmeterol 250-50* [Advair Diskus 250-50*] 1 puff INH BID 12/02/16 [ History Confirmed 12/02/16] Hydrocortisone 1% CREAM* [Hytone Cream 1%*] 1 applic TOPICAL DAILY PRN 12/02/16 [History Confirmed 12/02/16] Nutritional Supplements [Ensure] 1 can PO TID 12/02/16 [History Confirmed ] Petrolatum [Petroleum Jelly] 1 oin TOPICAL DAILY PRN 12/02/16 [History Confirmed 12/02/16] amLODIPine TAB* [Norvasc 5 mg TAB*] 5 mg PO DAILY 12/02/16 [History Confirmed ] PMH/Surg Hx/FS Hx/Imm Hx Previously Healthy: No Endocrine/Hematology History: Denies: Hx Anticoagulant Therapy, Hx Diabetes, Hx Thyroid Disease, Other Endocrine/Hematological Disorders Cardiovascular History: Reports: Hx Aneurysm, Hx Hypertension Denies: Hx Pacemaker/ICD, Hx Peripheral Vascular Disease, Other Cardiovascular Problems/Disorders Respiratory History: Reports: Hx Chronic Obstructive Pulmonary Disease (COPD) Denies: Hx Asthma, Other Respiratory Problems/Disorders GI History: Reports: Hx Gastroesophageal Reflux Disease Denies: Other GI Disorders History: Reports: Hx Benign Prostatic Hyperplasia Denies: Hx Renal Disease, Other Problems/Disorders Musculoskeletal History: Denies: Hx Arthritis, Hx Osteoporosis, Other Musculoskeletal History Sensory History: Reports: Hx Cataracts, Hx Legally Blind, Hx Vision Problem, Hx Hearing Problem Denies: Hx Contacts or Glasses - patient is blind, Hx Hearing Aid, Other Sensory Impairments Opthamlomology History: Reports: Hx Cataracts, Hx Legally Blind, Hx Vision Problem Denies: Hx Contacts or Glasses - patient is blind, Other Sensory Impairments Neurological History: Denies: Hx Dementia, Hx Headaches, Hx Seizures, Hx Transient Ischemic Attacks (TIA), Other Neuro Impairments/Disorders Psychiatric History: Denies: Hx Substance Abuse, Other Psychiatric Issues/Disorders Infectious Disease History: No Infectious Disease History: Denies: Hx Clostridium Difficile, Hx Hepatitis, Hx Human Immunodeficiency Virus (HIV), Traveled Outside the [place] in Last 30 Days - Family History Known Family History: Positive: Hypertension - mother - Social History Alcohol Use: None Hx Substance Use: No Substance Use Type: Reports: None Hx Tobacco Use: Yes Smoking Status (MU): Former Smoker Type: Pipe Have You Smoked in the Last Year: Yes Review of Systems Negative: Fever Positive: Vomiting - vomitting x2 last night. Negative: Abdominal Pain - No abd pain in the ED, though he did have a burning abd pain last night., Nausea All Other Systems Reviewed And Are Negative: Yes Physical Exam - Summary Physical Exam Summary: VITAL SIGNS: Reviewed. GENERAL: Patient is a an elderly male who is lying comfortable in the stretcher. Patient is not in any acute respiratory distress. He has no complaints. HEAD AND FACE: Normocephalic and atraumatic. EYES: He is blind in both eyes. EARS: Hearing grossly intact. Ear canals and tympanic membranes are WNL. MOUTH: Oropharynx within normal limits. Dry mucous membranes. NECK: Supple, trachea is midline, no adenopathy, no JVD. CHEST: Symmetric, no tenderness at palpation LUNGS: Clear to auscultation bilaterally. No wheezing or crackles. CVS: RRR, S1 and S2 present, no murmurs or gallops appreciated. ABDOMEN: Soft, non-tender. No signs of distention. Positive bowel sounds. No rebound no guarding, and no masses palpated. No abdominal bruit or pulsations. EXTREMITIES: FROM in all major joints, no edema, no cyanosis or clubbing. NEURO: Alert and oriented x 3. No acute neurological deficits. Speech is normal. SKIN: Dry and warm Triage Information Reviewed: Yes Vital Signs On Initial Exam: Initial Vitals Temp Pulse Resp BP Pulse Ox 99.3 F 78 20 119/60 97 12/02/16 12:20 12/02/16 12:20 12/02/16 12:20 12/02/16 12:20 12/02/16 12:20 Vital Signs Reviewed: Yes Diagnostics - Vital Signs Vital Signs Temp Pulse Resp BP Pulse Ox 12/02/16 12:20 99.3 F 78 20 119/60 97 - Laboratory Result Diagrams: 12/02/16 13:00 12/02/16 13:00 Lab Statement: Any lab studies that have been ordered have been reviewed, and results considered in the medical decision making process. - Radiology XR Abdo Xray Interpretation: No Acute Changes - 1. NO EVIDENCE FOR OBSTRUCTION. 2. PAUCITY OF GAS IN THE CENTRAL ABDOMEN CORRELATING WITH A LARGE ABDOMINAL AORTIC ANEURYSM ON THE PRIOR CT STUDY. CONSIDER REPEAT IMAGING WITH ULTRASOUND TO ASSESS FOR SIZE CHANGE. ED physician has read this report and agrees. Radiology Interpretation Completed By: Radiologist - EKG 12:53 Cardiac Rate: NL - 71 BPM EKG Rhythm: Sinus Rhythm EKG Interpretation: No STEMI. Abdominal Pain Fem Course/Dx - Course Assessment/Plan: The patient is an 86 y/o F BIBA after he had a burning abd pain last night after drinking Ensure. However, he does not have any abd pain in the ED. He vomited twice last night. He denies nausea in the ED or any other complaints. He is blind in both eyes. Test results show WBC 14.9, Sodium 131, BUN 25, glucose 132, lactic acid 2.3, troponin 0.04, and BNP 193. CXR shows 1. NO EVIDENCE FOR OBSTRUCTION. 2. PAUCITY OF GAS IN THE CENTRAL ABDOMEN CORRELATING WITH A LARGE ABDOMINAL AORTIC ANEURYSM ON THE PRIOR CT STUDY. CONSIDER REPEAT IMAGING WITH ULTRASOUND TO ASSESS FOR SIZE CHANGE. In the ED course, the patient was given IV fluids for hydration, Zofran for nausea, and Pepcid. In the ED course, the symptoms resolved. Since the patient has an abnormal XR, I wanted to do an ultrasound or CT Abd/Pel to rule out an AAA; however, the patient declined. He reports that he is already too old and doesn t want to do anything about it. He understands that the risk of failure to diagnosed AAA is imminent . He reports that he is DNR DNI and if he would require surgery, he would elect not to do so. He feels better, and because the burning sensation he had this AM is resolved with Pepcid, he thinks that the burning sensation is secondary to the Ensure. Therefore, the patient will be discharged home with follow up by primary care. The patient is hemodynamically stable and alert and oriented x3. - Diagnoses Provider Diagnoses: Nausea, Abdominal pain Discharge - Discharge Plan Condition: Stable Disposition: HOME Patient Education Materials: Acute Nausea and Vomiting (ED), Abdominal Pain (ED ) Referrals: [facility] PHYSICIAN REFERRAL [Outside] - 3 Days Additional Instructions: Follow up with your primary care provider in 3 days. If you do not have one, you can use the [facility] Physician Referral Service to find one and make an appointment. Return to the emergency department for any new or worsening symptoms. The documentation as recorded by the Prosper bonilla Thomas accurately reflects the service I personally performed and the decisions made by , Trenton Suazo MD.
== END 2016-12-02 17:33 | disposition home or self-care (01) ==
LOC: ED 12:02
DX: R10.9 Unspecified abdominal pain (principal); R11.2 Nausea with vomiting, unspecified; Z87.891 Personal history of nicotine dependence
CPT/HCPCS: 36415; 74020; 80053; 82550; 83605; 83690; 83880; 84484; 85025; 86140; 87040; 93005; 99283; J2405

== ENCOUNTER 2016-12-31 15:28 | Inpatient (IN) | payer MEDICARE, MEDICAID ==
[2016-12-31] MEDS ORDERED: NS 0.9% 1000 ML* 1,000 ML IV ONE ×3 (15:51→18:28)
[2016-12-31] MEDS ORDERED: Albuterol/Ipratropium NEB.SOL* Albuterol 2.5 MG/Ipratropium 0.5 MG 3 ML INH ONE (15:51)
[2016-12-31] MEDS ORDERED: Acetaminophen TAB* 325 MG PO ONE (15:56)
[2016-12-31] MEDS ORDERED: Diltiazem DRIP* 100 MG/100 ML ADDV.BAG IVPB ONE (16:02)
[2016-12-31] MEDS ORDERED: Diltiazem IV* 5 MG/ML 5 ML VIAL (for loading dose/IV Push) (25 MG) IV SLOW PU ONE (16:02)
[2016-12-31] MEDS ORDERED: cefTRIAXone(*) 1 GM in NS 0.9% 50 ML* 50 ML IVPB ONE (16:35)
[2016-12-31] MEDS ORDERED: Acetaminophen SUPP* 650 MG SUPP PR ONE (16:38)
[2016-12-31] MEDS ORDERED: Ondansetron INJ* 2 MG/ML VIAL IV PRN (16:38)
[2016-12-31] MEDS ORDERED: Albuterol 2.5 MG/3 ML NEB.SOL* (0.083%) INH PRN (16:38)
--- NOTE | 2016-12-31 16:39 | RAD ---
HISTORY: Shortness of breath COMPARISONS: December 31, 2016 at 9:10 AM VIEWS: 1: frontal portable view of the chest at 4:20 PM FINDINGS: LINES AND TUBES: None. CARDIOMEDIASTINAL SILHOUETTE: The cardiomediastinal silhouette is normal for portable technique. PLEURA: The costophrenic angles are sharp. No pleural abnormalities are noted. LUNG PARENCHYMA: There is hyperinflation. ABDOMEN: The upper abdomen is clear. There is no subphrenic gas. BONES AND SOFT TISSUES: No bone or soft tissue abnormalities are noted. IMPRESSION: HYPERINFLATION. NO ACTIVE CARDIOPULMONARY DISEASE.
[2016-12-31] MEDS: NS 0.9% 1000 ML* 1,000 ML IV SCH (17:18)
[2016-12-31 17:42] LABS: Hematocrit 42 % (42-52); Hemoglobin 13.9 g/dl (14.0-18.0); Mean Corpuscular HGB Conc 33 g/dl (31-36); Mean Corpuscular Hemoglobin 32 pg (27-31); Mean Corpuscular Volume 96 fL (80-94); Mean Platelet Volume 8 um3 (7.4-10.4); Red Blood Count 4.35 10^6/ul (4.0-5.4); Red Cell Distribution Width 14 % (10.5-15); White Blood Count 4.9 10^3/ul (3.5-10.8)
[2016-12-31 17:48] LABS: Comments Flag Yes
[2016-12-31 17:49] LABS: Add Diff/Slide Review? Slide Review Added
[2016-12-31 17:54] LABS: Albumin 3.4 g/dL (3.2-5.2); BUN/Creatinine Ratio 23.1 (8-20); Calcium 8.9 mg/dL (8.6-10.3); EGFR African American 83.8 (>60); EGFR Non-African American 65.1 (>60); Globulin 2.5 g/dL (2-4); Potassium 3.9 mmol/L (3.5-5.0); Total Bilirubin 1.2 mg/dL (0.2-1.0); Total Protein 5.9 g/dL (6.4-8.9)
[2016-12-31 18:00] LABS: Troponin I 0.43 ng/mL (<0.04)
--- NOTE | 2016-12-31 18:34 | PN ---
Progress Note - Progress Note Date of Service: 12/31/16 Note: Addendum: Lactic acid > 6 troponin elevated >0.4 in setting of tachycardia and relative hypotension after cardizem Lactate elevated in setting of sepsis, tacycardia, and relative hypotension as noted above. Receiving second bolus of normal saline now. Ordered 3rd bolus with repeat lactic and troponin at 20:00. Discussed with ICU and ED RNs. Smiley to be placed for urine output monitoring. Heart rate now controlled and fever curve trending down
--- NOTE | 2016-12-31 18:36 | ED ---
Prosper Dacosta Thomas, scribed for Eliseo Vaughan MD on 12/31/16 at 1602 . Sepsis HPI - HPI Summary HPI Summary: The pt is an 86 y/o M returning to the ED via ambulance after being discharged with diagnosis of UTI earlier this afternoon. Most history was obtained from EMS secondary to patients condition. EMS reports that patient c/o diarrhea, vomiting and shaking. Pt was given a CPAP en route. He is febrile and tachycardic. The pain is aggravated by nothing and is alleviated by nothing. - History of Current Complaint Chief Complaint: EDFever Time Seen by Provider: 12/31/16 15:45 Stated Complaint: SHORT OF BREATH Hx Obtained From: EMS Hx From Patient Unobtainable Due To: Extremis Onset/Duration: Started Minutes Ago, Still Present Timing: Constant Pain Intensity: 0 Pain Scale Used: 0-10 Numeric Aggravating Symptom(s): Unknown Alleviating Factor(s): Unknown Associated Signs & Symptoms: Other - Diarrhea, vomitting, shaking - Additional Pertinent History Primary Care Physician: [id number] - Allergy/Home Medications Allergies/Adverse Reactions: Allergies Allergy/AdvReac Type Severity Reaction Status Date / Time Erythromycin Allergy Unknown Unknown Verified 04/16/16 07:39 Reaction Details Sulfa Drugs Allergy Unknown Unknown Verified 04/16/16 07:39 Reaction Details Azithromycin Allergy Unknown Verified 04/16/16 07:39 Reaction Details PMH/Surg Hx/FS Hx/Imm Hx Previously Healthy: No Endocrine/Hematology History: Denies: Hx Anticoagulant Therapy, Hx Diabetes, Hx Thyroid Disease, Other Endocrine/Hematological Disorders Cardiovascular History: Reports: Hx Aneurysm, Hx Hypertension Denies: Hx Pacemaker/ICD, Hx Peripheral Vascular Disease, Other Cardiovascular Problems/Disorders Respiratory History: Reports: Hx Chronic Obstructive Pulmonary Disease (COPD) Denies: Hx Asthma, Other Respiratory Problems/Disorders GI History: Reports: Hx Gastroesophageal Reflux Disease Denies: Other GI Disorders History: Reports: Hx Benign Prostatic Hyperplasia Denies: Hx Renal Disease, Other Problems/Disorders Musculoskeletal History: Denies: Hx Arthritis, Hx Osteoporosis, Other Musculoskeletal History Sensory History: Reports: Hx Cataracts, Hx Legally Blind, Hx Vision Problem, Hx Hearing Problem Denies: Hx Contacts or Glasses - patient is blind, Hx Hearing Aid, Other Sensory Impairments Opthamlomology History: Reports: Hx Cataracts, Hx Legally Blind, Hx Vision Problem Denies: Hx Contacts or Glasses - patient is blind, Other Sensory Impairments Neurological History: Denies: Hx Dementia, Hx Headaches, Hx Seizures, Hx Transient Ischemic Attacks (TIA), Other Neuro Impairments/Disorders Psychiatric History: Denies: Hx Substance Abuse, Other Psychiatric Issues/Disorders Infectious Disease History: No Infectious Disease History: Denies: Hx Clostridium Difficile, Hx Hepatitis, Hx Human Immunodeficiency Virus (HIV), Traveled Outside the [place] in Last 30 Days - Family History Known Family History: Positive: Hypertension - mother - Social History Alcohol Use: None Hx Substance Use: No Substance Use Type: Reports: None Hx Tobacco Use: Yes Smoking Status (MU): Former Smoker Type: Pipe Have You Smoked in the Last Year: Yes Review of Systems Positive: Fever, Chills Positive: Other - Tachycardic Positive: Vomiting, Diarrhea All Other Systems Reviewed And Are Negative: Yes Physical Exam - Summary Physical Exam Summary: Appearance: The patient is ill-appearing in no acute distress and in no acute pain. Patient has a fever of 102.9. Skin: The skin is warm and dry and skin color reflects adequate perfusion. HEENT: The head is normocephalic and atraumatic. The pupils are equal and reactive. The conjunctivae are clear and without drainage. Nares are patent and without drainage. Mouth reveals moist mucous membranes and the throat is without erythema and exudate. The external ears are intact. The ear canals are patent and without drainage. The tympanic membranes are intact. Neck: The neck is supple with full range of motion and non-tender. There are no carotid bruits. There is no neck vein distension. Respiratory: Chest is non-tender. Lungs are clear to auscultation and breath sounds are symmetrical and equal. Cardiovascular: Heart rate is tachycardic. Heart rhythm is irregular. There is no murmur or rub auscultated. There is no peripheral edema and pulses are symmetrical and equal. Abdomen: The abdomen is soft and non-tender. There are normal bowel sounds heard in all four quadrants and there is no organomegaly palpated. Musculoskeletal: There is no back tenderness noted. Extremities are non-tender with full range of motion. There is good capillary refill. There is no peripheral edema or calf tenderness elicited. Neurological: Patient is alert and oriented to person, place and time. The patient has symmetrical motor strength in all four extremities. Cranial nerves are grossly intact. Deep tendon reflexes are symmetrical and equal in all four extremities. Patient is shivering uncontrollably. Psychiatric: The patient has an appropriate affect and does not exhibit any anxiety or depression. Triage Information Reviewed: Yes Vital Signs On Initial Exam: Initial Vitals Temp Pulse Resp BP Pulse Ox 102.6 F 159 25 133/82 100 12/31/16 15:35 12/31/16 15:35 12/31/16 15:35 12/31/16 15:35 12/31/16 15:35 Vital Signs Reviewed: Yes - Chris Coma Scale Coma Scale Total: 15 Diagnostics - Vital Signs Vital Signs Temp Pulse Resp BP Pulse Ox 12/31/16 15:35 102.6 F 159 25 133/82 100 - Laboratory Result Diagrams: 12/31/16 16:56 12/31/16 16:56 Lab Statement: Any lab studies that have been ordered have been reviewed, and results considered in the medical decision making process. - Radiology CXR Xray Interpretation: No Acute Changes - HYPERINFLATION. NO ACTIVE CARDIOPULMONARY DISEASE. ED physician has reviewed this report and agrees. Radiology Interpretation Completed By: Radiologist - EKG 16:23 Cardiac Rate: Tachycardia EKG Rhythm: Sinus Tachycardia EKG Interpretation: 135 BPM. Course/Dx - Course Course Of Treatment: Mr. Hare was seen this AM with a UTI. He did well here and went home. He then developed vomiting and a fever and tachycardia. He was brought back in by EMS. He meets sepsis criteria on return with tachycardia and fever and known infection. He was given a different antibiotic and fluids and slowly improved some. He is being admitted to the ICU by the Hospitalist service. - Differential Dx/Clinical Impression Provider Diagnosis: Severe sepsis - Provider Notifications Discussed Care Of Patient With: Yoel Paul Time Discussed With Above Provider: 16:50 Instructed by Provider To: Other - I consulted with Dr. Paul, hospitalist, who admits the patient to [facility]. - Critical Care Time Critical Care Time: 30-74 min Discharge - Discharge Plan Condition: Guarded Disposition: ADMITTED TO [facility] documentation as recorded by the Prosper bonilla Thomas accurately reflects the service I personally performed and the decisions made by me, Eliseo Vaughan MD.
[2016-12-31] MEDS: Tamsulosin CAP* 0.4 MG PO SCH (19:36)
[2016-12-31] MEDS: Atorvastatin* 40 MG TAB PO SCH (19:36)
[2016-12-31] MEDS: Polyethylene Glycol 3350* 17 GM PACKET PO SCH (19:36)
[2016-12-31] MEDS: Acetaminophen TAB* 325 MG PO PRN (19:36)
[2016-12-31] MEDS: Famotidine TAB* 20 MG PO SCH (19:36)
[2016-12-31] MEDS ORDERED: LORazepam INJ* 2 MG/ML 1 ML VIAL ONE (19:58)
[2016-12-31] MEDS: Mometasone/Formoter 200/5 MDI INH SCH (20:06)
[2016-12-31] MEDS: NUTRITIONAL SUPPLEMENTS PO SCH (20:33)
[2016-12-31] MEDS: Tobramycin/Dexameth OPTH.SUSP* 2.5 M L BTL BOTH EYES SCH (20:33)
[2016-12-31] MEDS ORDERED: LORazepam INJ* 2 MG/ML 1 ML VIAL IV PUSH ONE (21:00)
[2016-12-31] MEDS: Heparin VIAL(*) 5000 UNITS/ML VIAL (FIVE THOUSAND) SUBCUT SCH (22:13)
--- NOTE | 2016-12-31 23:57 | HP ---
ADMISSION HISTORY AND PHYSICAL: DATE OF ADMISSION: 12/31/16 PRIMARY CARE PROVIDER: REGINALDO Castellano. HEALTHCARE PROXY: Healthcare proxy is Genesis Rivera, who is also power of united states attorney, telephone number is [phone]. CODE STATUS: DNR/DNI, confirmed with Genesis Rivera. MOLST form filled out and placed in chart. SOURCE OF INFORMATION: History obtained from interview with Genesis Rivera, interview with staff from [facility], interview with Dr. Vaughan, review of past medical records, and interview with patient. Reliability of all the above is excellent, except for patient, which is poor. CHIEF COMPLAINT: Fevers, nausea, vomiting, diarrhea. HISTORY OF PRESENT ILLNESS: This is an 86-year-old man with past medical history of syncopal events in the setting of infections, lives at the [facility], who was in his usual state of health, which entails completely lucid, interactive, able to ambulate despite bilateral blindness, had an episode of syncope this morning, presented to the emergency room. There was concern for urinary tract infection as the etiology of his syncope. Other information surrounding the syncopal event at this point is unavailable. I contacted [facility] and no one who worked in the morning shift was available. I also contacted, via telephone, people that were present at the time and they have not yet returned the phone call. In either case, the patient was evaluated in the emergency room and discharged after receiving a ciprofloxacin. However, approximately 1 hour after returning to the [facility] he noted that he "did not feel well" and went to his room. The patient started to report that he "felt sick" before starting to develop large volume emesis as well as diarrhea. He presented to the emergency room again and at this time was found with high temperatures, peak 102.9, tachycardia up to 160 beats per minute. On initial evaluation he was thought to be in atrial fibrillation and received diltiazem with slowing of his rate in the 130s. Repeat EKG in the 130s, noted the patient to be in sinus tachycardia. Diltiazem was limited by hypotension. Diltiazem drip was discontinued and aggressive management for suspected sepsis was undertaken. When seen by this author, the patient had a fever of 102.9. He was confused. Difficult to relate much of the history. He denied any pain or chest pain. No shortness of breath. PAST MEDICAL HISTORY: 1. Bilateral blindness. 2. Hypertension. 3. Hyperlipidemia. 4. GERD. 5. History of COPD. 6. Remote history of AAA. 7. BPH. 8. Paroxysmal atrial fibrillation, off of anticoagulation. 9. History of demand mediated NSTEMI. 10. Tonsillectomy. ALLERGIES: Include ERYTHROMYCIN, SULFA DRUGS, AND AZITHROMYCIN. HOME MEDICATIONS: Home medications have not been reconciled, but have included: 1. Norvasc 5 mg daily. 2. TobraDex 1 drop to both eyes 3 times daily. 3. Flomax 0.4 mg at bedtime. 4. Zantac 150 mg twice daily. 5. MiraLAX 17 g twice daily. 6. Nutritional supplements 3 times daily. 7. Multivitamin 1 tab daily. 8. Mobic 15 mg daily. 9. Hydrocortisone 1% cream topically daily as needed. 10. Advair 250/50 one puff twice daily. 11. Proscar 5 mg daily. 12. Ferrous sulfate 325 mg daily. 13. Nexium 20 mg daily. 14. 100 mg daily. 15. Tylenol PM extra strength 1 tab at bedtime. 16. Digoxin 0.125 mg daily. 17. Atorvastatin 40 mg at bedtime. 18. Aspirin 81 mg daily. 19. Ascorbic acid 500 mg daily. 20. Albuterol/ipratropium 1 puff every 4 hours as needed. 21. Maalox Plus 30 mL every 4 hours as needed. SOCIAL HISTORY: Lives at [facility]. Smokes a pack per day. No history of alcohol. His healthcare proxy and power of united states attorney is Genesis Saavedraxby, telephone number listed above. FAMILY HISTORY: Mother had hypertension. REVIEW OF SYSTEMS: Difficult to obtain from the patient given his decreased level of consciousness. PHYSICAL EXAMINATION GENERAL: Very thin, elderly man, appears older than stated age. Lying flat in bed. He is tachypneic, although in no respiratory distress. VITAL SIGNS: When seen by this author, blood pressure 96/71, heart rate 135, respiratory rate is 30, T-max 166. He is 98% on 4 L. HEENT: His oropharynx is clear. He has dry mucous membranes. Sclerae are anicteric, erythematous. He has elevated JVD on the right to the angle of his jaw. HEART: He has tachycardic heart rate, difficult to appreciate any murmurs. He has faint rales at the right base. ABDOMEN: Soft, nontender, nondistended. EXTREMITIES: Warm and well perfused. No clubbing, cyanosis or edema. He has 2 + pulses throughout. NEUROLOGIC: He is alert to his name, unable to identify that he is in the hospital, what the year is, which is a notable decrease in his mental status. He moves all extremities. Cranial nerves are difficult to assess in the setting of his altered mental status. LABORATORY DATA/DIAGNOSTIC DATA: Laboratory data from this morning has been reviewed. Additional laboratory data since his return has been ordered. This morning his laboratory indicate a sodium of 134, potassium 3.8, chloride 102, bicarbonate 26, BUN 20, creatinine 0.87. Hemoglobin 13.3, white blood cell count 7.7, platelets 157. INR 1.0. Troponin I is 0.04. TSH 2.24. Urinalysis positive for blood, leukocyte esterase, white blood cells, and bacteria. Chest x-ray was notable for hyperinflation, without evidence of volume overload or consolidation. His EKG is notable for sinus tachycardia, ventricular rate of 135 beats per minute, with a normal axis. ST depressions in V3 through V5, II, III, and aVF, with a poor baseline. ASSESSMENT AND PLAN: This is an 86-year-old man with a past medical history as outlined above, who presented with high fevers and altered mental status, tachycardia, concerning for sepsis with urine as the likely source. 1. Sepsis. He received a liter of fluid. We will continue fluid aggressively at this time; however, we will not bolus additional liters given his past echocardiogram consistent with diastolic heart failure and rales in his right base at this time, and the patient's subjective complaint of difficulty breathing. Continue fluid at 125 cc per hour for 2 additional liters. Check lactic acid now as well as full set of labs including CBC, BMP, ESR, CRP. Treat suspected infection with ceftriaxone based on previous resistance profile of last urinary tract infection in July. We will admit him to the ICU given critical status, although the patient would not want to be intubated, which I confirmed with Genesis Rivera, his healthcare proxy and power of united states attorney. Blood cultures in addition to the above have been collected prior to the receipt of antibiotics. If lactic acid returns high we will trend. 2. Elevated troponin on last hospital stay of 0.04, we will repeat now. I suspect it will be higher in the setting of tachycardia. 3. Atrial fibrillation. Check digoxin level, not anticoagulated. 4. Benign prostatic hypertrophy. Continue home medication. 5. Chronic obstructive pulmonary disease. Continue home medication. 6. Hypertension, on Norvasc. Hold medication. 7. DVT prophylaxis. Heparin subcu. 8. Code status: DNR/DNI. [id number]/CPS #: [id number] [facility]
[2017-01-01] MEDS: NS 0.9% 1000 ML* 1,000 ML IV SCH (01:00)
[2017-01-01 05:22] LABS: Hematocrit 38 % (42-52); Hemoglobin 12.6 g/dl (14.0-18.0); Mean Corpuscular HGB Conc 33 g/dl (31-36); Mean Corpuscular Hemoglobin 32 pg (27-31); Mean Corpuscular Volume 96 fL (80-94); Mean Platelet Volume 8 um3 (7.4-10.4); Red Blood Count 3.99 10^6/ul (4.0-5.4); Red Cell Distribution Width 14 % (10.5-15); White Blood Count 23.6 10^3/ul (3.5-10.8)
[2017-01-01 05:23] LABS: Comments Flag Yes
[2017-01-01 05:24] LABS: Add Diff/Slide Review? Slide Review Added
[2017-01-01] MEDS: Heparin VIAL(*) 5000 UNITS/ML VIAL (FIVE THOUSAND) SUBCUT SCH ×3 (05:39→21:35)
[2017-01-01 05:55] LABS: BUN/Creatinine Ratio 17.3 (8-20); Calcium 8.1 mg/dL (8.6-10.3); EGFR African American 69.5 (>60); Potassium 3.5 mmol/L (3.5-5.0)
[2017-01-01 05:56] LABS: Troponin I 1.31 ng/mL (<0.04)
[2017-01-01 06:06] LABS: Immature Granulocytes 17 % (0-9); Neutrophil % 80 % (38-83); RBC Morphology Normal (Normal)
[2017-01-01 06:07] LABS: Toxic Granulation 2+
[2017-01-01] MEDS: Multivitamins/Minerals TAB PO SCH (07:57)
[2017-01-01] MEDS: Finasteride TAB* 5 MG PO SCH (07:57)
[2017-01-01] MEDS: Omeprazole CAP* 20 MG PO SCH (07:57)
[2017-01-01] MEDS: Famotidine TAB* 20 MG PO SCH ×2 (07:57→21:51)
[2017-01-01] MEDS: Ascorbic Acid TAB* 500 MG PO SCH (07:57)
[2017-01-01] MEDS: Ferrous Sulfate TAB* 325 MG PO SCH (07:57)
[2017-01-01] MEDS: Digoxin TAB* 0.125 MG PO SCH (07:57)
[2017-01-01] MEDS: Aspirin Low Dose CHEW TAB* 81 MG PO SCH (07:58)
[2017-01-01] MEDS: NUTRITIONAL SUPPLEMENTS PO SCH ×2 (07:59→13:43)
[2017-01-01] MEDS: Polyethylene Glycol 3350* 17 GM PACKET PO SCH ×2 (07:59→21:48)
[2017-01-01] MEDS: Tobramycin/Dexameth OPTH.SUSP* 2.5 M L BTL BOTH EYES SCH ×3 (07:59→21:50)
[2017-01-01] MEDS: Docusate CAP* 100 MG PO SCH (07:59)
--- NOTE | 2017-01-01 08:44 | PN ---
Subjective Date of Service: 01/01/17 Interval History: Much improved this AM Awake and interactive. Has no complaints except "too many medications" denies pain no diarrhea or cough Objective Active Medications: Acetaminophen (Tylenol Tab*) 650 mg PO Q6H PRN PRN Reason: PAIN Last Admin: 12/31/16 19:36 Dose: 650 mg Albuterol (Ventolin 2.5 Mg/3 Ml Neb.Nancie*) 2.5 mg INH [id number] AWAKE PRN PRN Reason: sob/wheezing Albuterol/Ipratropium (Duoneb (Albuterol 2.5 Mg/Ipratropium 0.5 Mg)) 1 neb INH Q4H PRN PRN Reason: SOB/WHEEZING Ascorbic Acid (Vitamin C Tab*) 500 mg PO DAILY [facility] Last Admin: 01/01/17 07:57 Dose: 500 mg Aspirin (Aspirin Low Dose Tab*) 81 mg PO DAILY [facility] Last Admin: 01/01/17 07:58 Dose: 81 mg Atorvastatin Calcium (Lipitor*) 40 mg PO BEDTIME [facility] Last Admin: 12/31/16 19:36 Dose: 40 mg Digoxin (Lanoxin Tab*) 0.125 mg PO DAILY [facility] Last Admin: 01/01/17 07:57 Dose: 0.125 mg Docusate Sodium (Colace Cap*) 100 mg PO DAILY [facility] Last Admin: 01/01/17 07:59 Dose: Not Given Famotidine (Pepcid Tab*) 20 mg PO BID [facility] PRN Reason: Protocol Last Admin: 01/01/17 07:57 Dose: 20 mg Ferrous Sulfate (Ferrous Sulfate Tab*) 325 mg PO DAILY [facility] Last Admin: 01/01/17 07:57 Dose: 325 mg Finasteride (Proscar Tab*) 5 mg PO DAILY [facility] Last Admin: 01/01/17 07:57 Dose: 5 mg Heparin Sodium (Porcine) (Heparin Vial(*)) 5,000 units SUBCUT Q8HR [facility] Last Admin: 01/01/17 05:39 Dose: 5,000 units Sodium Chloride (Ns 0.9% 1000 Ml*) 1,000 mls @ 125 mls/hr IV PER RATE [facility] Stop: 01/02/17 01:14 Last Admin: 01/01/17 01:00 Dose: 125 mls/hr Cefepime HCl (Maxipime 2 Gm In Dextrose Duplex (*)) 2 gm in 50 mls @ 100 mls/ hr IV Q24H [facility] Mometasone Furoate/Formoterol Fumar (Dulera 200/5 Mdi*) 2 puff INH BID [facility] Last Admin: 12/31/16 20:06 Dose: 2 puff Multivitamins/Minerals (Theragran/Minerals Tab*) 1 tab PO DAILY [facility] Last Admin: 01/01/17 07:57 Dose: 1 tab Nutritional Supplements [Ensure] 1 Can 1 can PO TID [facility] Last Admin: 01/01/17 07:59 Dose: Not Given Omeprazole (Prilosec Cap*) 20 mg PO DAILY@0730 [facility] PRN Reason: Protocol Last Admin: 01/01/17 07:57 Dose: 20 mg Ondansetron HCl (Zofran Inj*) 4 mg IV Q4H PRN PRN Reason: NAUSEA/VOMITING Polyethylene Glycol/Electrolytes (Miralax*) 17 gm PO BID [facility] Last Admin: 01/01/17 07:59 Dose: Not Given Tamsulosin HCl (Flomax Cap*) 0.4 mg PO BEDTIME [facility] Last Admin: 12/31/16 19:36 Dose: 0.4 mg Tobramycin/Dexamethasone (Tobradex 0.3-0.1%*) 1 drop BOTH EYES TID [facility] Last Admin: 01/01/17 07:59 Dose: 1 drop Vital Signs 12/31/16 12/31/16 12/31/16 16:53 17:00 18:00 Temperature Pulse Rate 127 109 Respiratory 28 18 Rate Blood Pressure 100/60 (mmHg) O2 Sat by Pulse 100 100 100 Oximetry 12/31/16 12/31/16 12/31/16 18:13 18:47 18:52 Temperature Pulse Rate 109 104 108 Respiratory 27 19 Rate Blood Pressure 103/64 102/64 (mmHg) O2 Sat by Pulse 100 100 95 Oximetry 12/31/16 12/31/16 12/31/16 18:56 19:00 19:15 Temperature 101.1 F Pulse Rate 103 97 Respiratory 24 19 Rate Blood Pressure 92/67 101/62 (mmHg) O2 Sat by Pulse 94 97 Oximetry 12/31/16 12/31/16 12/31/16 19:30 19:45 20:00 Temperature 100.6 F Pulse Rate 99 101 101 Respiratory 17 25 20 Rate Blood Pressure 101/64 108/62 90/56 (mmHg) O2 Sat by Pulse 98 97 97 Oximetry 12/31/16 12/31/16 12/31/16 20:02 20:05 20:15 Temperature 100.4 F 100.6 F Pulse Rate 100 95 Respiratory 23 19 19 Rate Blood Pressure 92/58 91/57 (mmHg) O2 Sat by Pulse 97 95 Oximetry 12/31/16 12/31/16 12/31/16 20:30 20:45 21:00 Temperature 100.4 F 100.6 F 100.6 F Pulse Rate 99 99 94 Respiratory 15 18 18 Rate Blood Pressure 97/65 97/62 97/61 (mmHg) O2 Sat by Pulse 95 95 95 Oximetry 12/31/16 12/31/16 12/31/16 21:01 21:15 21:30 Temperature 100.6 F 100.6 F 100.6 F Pulse Rate 97 95 96 Respiratory 17 16 17 Rate Blood Pressure 97/59 97/60 93/59 (mmHg) O2 Sat by Pulse 95 95 95 Oximetry 12/31/16 12/31/16 12/31/16 21:45 22:00 22:15 Temperature 100.4 F 100.2 F 99.9 F Pulse Rate 95 90 94 Respiratory 20 19 23 Rate Blood Pressure 91/63 90/56 91/60 (mmHg) O2 Sat by Pulse 96 96 96 Oximetry 12/31/16 12/31/16 12/31/16 22:30 23:00 23:30 Temperature 100.0 F 100.0 F 100.0 F Pulse Rate 92 90 95 Respiratory 17 18 23 Rate Blood Pressure 90/59 95/59 97/60 (mmHg) O2 Sat by Pulse 95 95 95 Oximetry 01/01/17 01/01/17 01/01/17 00:00 00:30 01:00 Temperature 98.4 F 99.7 F 100.2 F Pulse Rate 95 94 93 Respiratory 19 20 20 Rate Blood Pressure 97/60 93/57 88/58 (mmHg) O2 Sat by Pulse 95 93 94 Oximetry 01/01/17 01/01/17 01/01/17 01:30 02:00 02:30 Temperature 100.0 F 100.0 F 99.9 F Pulse Rate 94 90 88 Respiratory 22 21 19 Rate Blood Pressure 89/58 90/54 89/53 (mmHg) O2 Sat by Pulse 95 95 96 Oximetry 01/01/17 01/01/17 01/01/17 03:00 03:30 04:00 Temperature 99.7 F 99.9 F 99.7 F Pulse Rate 85 86 88 Respiratory 19 20 19 Rate Blood Pressure 96/55 93/54 81/54 (mmHg) O2 Sat by Pulse 95 95 95 Oximetry 01/01/17 01/01/17 01/01/17 04:30 05:00 05:30 Temperature 99.5 F 97.7 F 99.5 F Pulse Rate 90 89 90 Respiratory 21 24 23 Rate Blood Pressure 85/53 98/55 81/52 (mmHg) O2 Sat by Pulse 96 95 96 Oximetry 01/01/17 01/01/17 01/01/17 05:40 05:48 06:00 Temperature 99.5 F 99.5 F Pulse Rate 85 87 Respiratory 23 22 22 Rate Blood Pressure 90/55 80/54 (mmHg) O2 Sat by Pulse 96 96 Oximetry 01/01/17 01/01/17 06:01 07:57 Temperature 99.5 F Pulse Rate 88 91 Respiratory 23 Rate Blood Pressure 85/57 (mmHg) O2 Sat by Pulse 96 Oximetry Oxygen Devices in Use Now: Nasal Cannula - 4L Appearance: NAD Eyes: - - b/l blind Ears/Nose/Mouth/Throat: Clear Oropharnyx, - - dry MM Neck: NL Appearance and Movements; NL JVP, Trachea Midline Respiratory: Symmetrical Chest Expansion and Respiratory Effort, - - trace rales Cardiovascular: RRR Abdominal: NL Sounds; No Tenderness; No Distention, No Hepatosplenomegaly Lymphatic: No Cervical Adenopathy Skin: No Rash or Ulcers, No Nodules or Sclerosis Neurological: Alert and Oriented x 3 Result Diagrams: 01/01/17 05:01 01/01/17 05:01 Microbiology and Other Data: Microbiology 12/31/16 16:56 Anaerobic Blood Culture - Preliminary Blood Venous 12/31/16 16:56 Anaerobic Blood Culture - Preliminary Blood Venous 12/31/16 18:50 Nasal Screen MRSA (PCR)([facility]) - Final Nasal Mrsa Positive Assess/Plan/Problems-Billing Assessment: 86 M h/o b/l blindness, COPD, HTN, BPH p/w severe sepsis found with gram negative bacteremia - Patient Problems (1) Severe sepsis Comment: gram negative bacteremia - speciation pending change CTX to cefepime with renal dosing to cover pseudomonas c/w IVF for remainder of this liter check LA this AM to monitor downward trend (2) Elevated troponin Comment: Chest pain free Suspcet in setting of tachycradia then hypotension after receiving cardizem may benefit from outpatient stress (3) COPD (chronic obstructive pulmonary disease) Comment: momo hines (4) HTN (hypertension) Comment: hold norvasc (5) Paroxysmal atrial fibrillation Comment: Sinus rhythm Not on chronic anticoagulation Continue digoxin -lvl low but will not adjust until stable from hemofynamic perspective (6) DVT prophylaxis Comment: SQ heparin
[2017-01-01] MEDS: Cefepime 2 GM in Dextrose(*) 2 GM/50 ML BAG IV SCH (08:48)
[2017-01-01] MEDS: Mometasone/Formoter 200/5 MDI INH SCH ×2 (09:24→20:03)
[2017-01-01] MEDS ORDERED: NS 0.9% 1000 ML* 1,000 ML IV SCH ×3 (10:00→17:41)
[2017-01-01] MEDS ORDERED: cefTRIAXone VIAL(*) 1,000 MG in NS 0.9% 50 ML* 50 ML IVPB SCH (17:00)
[2017-01-01] MEDS: Albuterol/Ipratropium NEB.SOL* Albuterol 2.5 MG/Ipratropium 0.5 MG 3 ML INH PRN (21:35)
[2017-01-01] MEDS: Atorvastatin* 40 MG TAB PO SCH (21:50)
[2017-01-01] MEDS: Tamsulosin CAP* 0.4 MG PO SCH (21:51)
[2017-01-02 05:41] LABS: Add Diff/Slide Review? Slide Review Added; Comments Flag Yes; Hematocrit 32 % (42-52); Hemoglobin 10.9 g/dl (14.0-18.0); Mean Corpuscular HGB Conc 34 g/dl (31-36); Mean Corpuscular Hemoglobin 32 pg (27-31); Mean Corpuscular Volume 94 fL (80-94); Mean Platelet Volume 9 um3 (7.4-10.4); Red Blood Count 3.43 10^6/ul (4.0-5.4); Red Cell Distribution Width 15 % (10.5-15); White Blood Count 21.8 10^3/ul (3.5-10.8)
[2017-01-02 05:53] LABS: BUN/Creatinine Ratio 30.9 (8-20); Calcium 7.7 mg/dL (8.6-10.3); EGFR African American 116.8 (>60); EGFR Non-African American 90.8 (>60); Potassium 3.5 mmol/L (3.5-5.0)
[2017-01-02 06:18] LABS: Immature Granulocytes 15 % (0-9); Neutrophil % 80 % (38-83); RBC Morphology Normal (Normal); Reactive Lymph % 1 % (0-6); Toxic Granulation 2+
[2017-01-02] MEDS: NUTRITIONAL SUPPLEMENTS PO SCH ×4 (06:19→21:14)
[2017-01-02] MEDS: Heparin VIAL(*) 5000 UNITS/ML VIAL (FIVE THOUSAND) SUBCUT SCH (06:23)
[2017-01-02] MEDS: Polyethylene Glycol 3350* 17 GM PACKET PO SCH ×2 (08:27→21:14)
[2017-01-02] MEDS: Docusate CAP* 100 MG PO SCH ×2 (08:27→11:43)
[2017-01-02] MEDS: Ascorbic Acid TAB* 500 MG PO SCH ×2 (08:27→11:43)
[2017-01-02] MEDS: Ferrous Sulfate TAB* 325 MG PO SCH (08:27)
[2017-01-02] MEDS: Famotidine TAB* 20 MG PO SCH ×2 (08:28→11:04)
[2017-01-02] MEDS: Aspirin Low Dose CHEW TAB* 81 MG PO SCH ×2 (08:28→11:43)
[2017-01-02] MEDS: Finasteride TAB* 5 MG PO SCH (08:28)
[2017-01-02] MEDS: Omeprazole CAP* 20 MG PO SCH (08:28)
[2017-01-02] MEDS: Multivitamins/Minerals TAB PO SCH ×2 (08:28→11:43)
[2017-01-02] MEDS: Digoxin TAB* 0.125 MG PO SCH (08:28)
[2017-01-02] MEDS: Tobramycin/Dexameth OPTH.SUSP* 2.5 M L BTL BOTH EYES SCH ×3 (08:36→21:14)
--- NOTE | 2017-01-02 09:14 | PN ---
Progress Note - Progress Note Date of Service: 12/31/16 Note: patient was diagnosed with sepsis and admitted to [facility]. On IV antibiotics. preliminary urine culture results showed >100,000 of e. coli. no further action required at this time.
[2017-01-02] MEDS: Cefepime 2 GM in Dextrose(*) 2 GM/50 ML BAG IV SCH (09:51)
[2017-01-02] MEDS: Mometasone/Formoter 200/5 MDI INH SCH ×2 (11:24→20:07)
--- NOTE | 2017-01-02 17:26 | PN ---
Subjective Date of Service: 01/02/17 Interval History: Today reports he feels "tired" and asks why he "should go on" Denies SI Denies pain, SOB, CP, N/V UOP marginal, WBC remains elevated but afebrile Objective Active Medications: Acetaminophen (Tylenol Tab*) 650 mg PO Q6H PRN PRN Reason: PAIN Last Admin: 12/31/16 19:36 Dose: 650 mg Albuterol (Ventolin 2.5 Mg/3 Ml Neb.Nancie*) 2.5 mg INH [id number] AWAKE PRN PRN Reason: sob/wheezing Albuterol/Ipratropium (Duoneb (Albuterol 2.5 Mg/Ipratropium 0.5 Mg)) 1 neb INH Q4H PRN PRN Reason: SOB/WHEEZING Last Admin: 01/01/17 21:35 Dose: 1 neb Ascorbic Acid (Vitamin C Tab*) 500 mg PO DAILY [facility] Last Admin: 01/02/17 11:43 Dose: Not Given Aspirin (Aspirin Low Dose Tab*) 81 mg PO DAILY [facility] Last Admin: 01/02/17 11:43 Dose: Not Given Atorvastatin Calcium (Lipitor*) 40 mg PO BEDTIME [facility] Last Admin: 01/01/17 21:50 Dose: 40 mg Digoxin (Lanoxin Tab*) 0.125 mg PO DAILY [facility] Last Admin: 01/02/17 08:28 Dose: 0.125 mg Docusate Sodium (Colace Cap*) 100 mg PO DAILY [facility] Last Admin: 01/02/17 11:43 Dose: Not Given Ferrous Sulfate (Ferrous Sulfate Tab*) 325 mg PO DAILY [facility] Last Admin: 01/02/17 08:27 Dose: 325 mg Finasteride (Proscar Tab*) 5 mg PO DAILY [facility] Last Admin: 01/02/17 08:28 Dose: 5 mg Ceftriaxone Sodium 1,000 mg/ (Sodium Chloride) 50 mls @ 200 mls/hr IVPB Q24H [facility] Lactated Ringer's (Lactated Ringers 1000 Ml Bag*) 1,000 mls @ 125 mls/hr IV PER RATE [facility] Stop: 01/04/17 01:59 Influenza Virus Vaccine (Fluarix *Quad* *) 0.5 ml IM .ONCE ONE Stop: 01/03/17 09:01 Mometasone Furoate/Formoterol Fumar (Dulera 200/5 Mdi*) 2 puff INH BID [facility] Last Admin: 01/02/17 11:24 Dose: 2 puff Multivitamins/Minerals (Theragran/Minerals Tab*) 1 tab PO DAILY [facility] Last Admin: 01/02/17 11:43 Dose: Not Given Nutritional Supplements [Ensure] 1 Can 1 can PO TID [facility] Last Admin: 01/02/17 14:51 Dose: 1 can Omeprazole (Prilosec Cap*) 20 mg PO DAILY@0730 [facility] PRN Reason: Protocol Last Admin: 01/02/17 08:28 Dose: 20 mg Ondansetron HCl (Zofran Inj*) 4 mg IV Q4H PRN PRN Reason: NAUSEA/VOMITING Polyethylene Glycol/Electrolytes (Miralax*) 17 gm PO BID [facility] Last Admin: 01/02/17 08:27 Dose: 17 gm Tamsulosin HCl (Flomax Cap*) 0.4 mg PO BEDTIME [facility] Last Admin: 01/01/17 21:51 Dose: 0.4 mg Tobramycin/Dexamethasone (Tobradex 0.3-0.1%*) 1 drop BOTH EYES TID [facility] Last Admin: 01/02/17 14:51 Dose: 1 drop Vital Signs 01/01/17 01/01/17 01/01/17 17:31 18:00 18:30 Temperature 98.2 F 98.2 F 98.4 F Pulse Rate 100 101 102 Respiratory 18 23 26 Rate Blood Pressure 91/53 120/93 96/61 (mmHg) O2 Sat by Pulse 94 95 94 Oximetry 01/01/17 01/01/17 01/01/17 19:00 19:01 19:30 Temperature 98.1 F 98.1 F 98.4 F Pulse Rate 99 99 98 Respiratory 22 21 25 Rate Blood Pressure 104/58 104/63 (mmHg) O2 Sat by Pulse 94 94 94 Oximetry 01/01/17 01/01/17 01/01/17 20:00 20:01 20:30 Temperature 98.2 F 98.2 F 97.9 F Pulse Rate 94 101 98 Respiratory 19 28 25 Rate Blood Pressure 115/58 99/61 (mmHg) O2 Sat by Pulse 93 93 95 Oximetry 01/01/17 01/01/17 01/01/17 21:00 21:30 21:35 Temperature 97.9 F 98.2 F Pulse Rate 97 105 103 Respiratory 31 28 21 Rate Blood Pressure 104/84 (mmHg) O2 Sat by Pulse 94 96 96 Oximetry 01/01/17 01/01/17 01/01/17 22:00 22:30 23:00 Temperature 98.4 F 98.6 F 98.8 F Pulse Rate 110 108 109 Respiratory 23 23 25 Rate Blood Pressure 115/73 113/65 (mmHg) O2 Sat by Pulse 94 94 87 Oximetry 01/01/17 01/01/17 01/01/17 23:01 23:12 23:30 Temperature 98.8 F 99.0 F 99.0 F Pulse Rate 105 105 104 Respiratory 25 20 23 Rate Blood Pressure 109/64 108/62 (mmHg) O2 Sat by Pulse 95 94 94 Oximetry 01/02/17 01/02/17 01/02/17 00:00 00:01 00:31 Temperature 99.0 F 99.1 F 99.1 F Pulse Rate 110 104 104 Respiratory 20 23 23 Rate Blood Pressure 109/60 91/73 (mmHg) O2 Sat by Pulse 85 92 92 Oximetry 01/02/17 01/02/17 01/02/17 01:00 01:01 01:30 Temperature 99.1 F 99.1 F 99.1 F Pulse Rate 103 106 112 Respiratory 25 24 23 Rate Blood Pressure 114/66 101/56 (mmHg) O2 Sat by Pulse 91 92 91 Oximetry 01/02/17 01/02/17 01/02/17 02:00 02:01 02:30 Temperature 99.1 F 99.1 F 99.5 F Pulse Rate 107 105 106 Respiratory 20 34 24 Rate Blood Pressure 113/57 100/57 (mmHg) O2 Sat by Pulse 77 95 93 Oximetry 01/02/17 01/02/17 01/02/17 03:00 03:01 03:30 Temperature 99.5 F 99.5 F 99.5 F Pulse Rate 117 108 108 Respiratory 24 29 24 Rate Blood Pressure 102/55 97/55 (mmHg) O2 Sat by Pulse 87 94 92 Oximetry 01/02/17 01/02/17 01/02/17 04:00 04:01 04:31 Temperature 99.5 F 99.5 F 99.3 F Pulse Rate 108 Respiratory 25 26 23 Rate Blood Pressure 96/63 124/83 (mmHg) O2 Sat by Pulse 94 Oximetry 01/02/17 01/02/17 01/02/17 05:00 05:02 05:31 Temperature 99.3 F 99.3 F 99.3 F Pulse Rate 102 102 105 Respiratory 21 24 22 Rate Blood Pressure 115/62 125/109 (mmHg) O2 Sat by Pulse 93 94 94 Oximetry 01/02/17 01/02/17 01/02/17 06:00 07:00 07:02 Temperature 99.3 F 99.0 F 99.0 F Pulse Rate 110 105 102 Respiratory 27 23 27 Rate Blood Pressure 100/65 (mmHg) O2 Sat by Pulse 93 88 94 Oximetry 01/02/17 01/02/17 01/02/17 08:00 08:09 08:28 Temperature 99.0 F 98.8 F Pulse Rate 99 99 101 Respiratory 22 22 Rate Blood Pressure 111/53 (mmHg) O2 Sat by Pulse 96 95 Oximetry 01/02/17 01/02/17 01/02/17 08:52 09:00 10:00 Temperature 98.8 F 98.8 F 98.8 F Pulse Rate 98 99 104 Respiratory 23 20 23 Rate Blood Pressure 111/53 107/62 (mmHg) O2 Sat by Pulse 98 96 93 Oximetry 01/02/17 01/02/17 01/02/17 10:18 11:00 11:24 Temperature 98.8 F 98.6 F Pulse Rate 105 104 98 Respiratory 26 23 22 Rate Blood Pressure 116/69 123/72 (mmHg) O2 Sat by Pulse 94 94 94 Oximetry 01/02/17 01/02/17 01/02/17 12:00 12:11 12:44 Temperature 98.8 F 98.6 F 98.6 F Pulse Rate 105 103 102 Respiratory 20 23 22 Rate Blood Pressure 122/71 120/71 (mmHg) O2 Sat by Pulse 94 95 94 Oximetry 01/02/17 01/02/17 01/02/17 13:00 13:01 14:00 Temperature 98.6 F 98.8 F 98.8 F Pulse Rate 106 105 104 Respiratory 26 23 23 Rate Blood Pressure (mmHg) O2 Sat by Pulse 94 93 95 Oximetry 01/02/17 01/02/17 01/02/17 14:12 15:00 15:01 Temperature 98.8 F 98.8 F 98.8 F Pulse Rate 105 100 101 Respiratory 22 24 22 Rate Blood Pressure 118/67 123/85 (mmHg) O2 Sat by Pulse 95 95 95 Oximetry 01/02/17 16:00 Temperature 98.8 F Pulse Rate 97 Respiratory 22 Rate Blood Pressure 123/72 (mmHg) O2 Sat by Pulse 95 Oximetry Oxygen Devices in Use Now: None, Nasal Cannula Appearance: lying flat, NAD Eyes: - - blind Ears/Nose/Mouth/Throat: Clear Oropharnyx, - - dry MM Neck: NL Appearance and Movements; NL JVP Respiratory: Symmetrical Chest Expansion and Respiratory Effort, Clear to Auscultation Cardiovascular: - - tachy Abdominal: NL Sounds; No Tenderness; No Distention, No Hepatosplenomegaly Lymphatic: No Cervical Adenopathy Extremities: No Edema, No Clubbing, Cyanosis Skin: No Rash or Ulcers Neurological: Alert and Oriented x 3 Result Diagrams: 01/02/17 05:20 01/02/17 05:20 Microbiology and Other Data: Microbiology 12/31/16 16:56 Anaerobic Blood Culture - Preliminary Blood Venous 12/31/16 16:56 Anaerobic Blood Culture - Preliminary Blood Venous 12/31/16 18:50 Nasal Screen MRSA (PCR)([facility]) - Final Nasal Mrsa Positive Assess/Plan/Problems-Billing Assessment: 86 M h/o b/l blindness, COPD, HTN, BPH p/w severe sepsis found with gram negative bacteremia - Patient Problems (1) Severe sepsis Comment: E. coli in urine and blood change cefepime back to CTX based on sensitivities c/w LR at 125cc (2) Elevated troponin Comment: Chest pain free Suspect in setting of tachycradia then hypotension after receiving cardizem check TTE (3) COPD (chronic obstructive pulmonary disease) Comment: momo hines (4) HTN (hypertension) Comment: hold norvasc (5) Paroxysmal atrial fibrillation Comment: Sinus rhythm Not on chronic anticoagulation Continue digoxin -lvl low but will not adjust until stable from hemofynamic perspective (6) DVT prophylaxis Comment: SQ heparin
[2017-01-02] MEDS: Tamsulosin CAP* 0.4 MG PO SCH (21:14)
[2017-01-02] MEDS: Atorvastatin* 40 MG TAB PO SCH (21:14)
[2017-01-03] MEDS: Albuterol/Ipratropium NEB.SOL* Albuterol 2.5 MG/Ipratropium 0.5 MG 3 ML INH PRN ×2 (00:48→09:11)
[2017-01-03 04:41] LABS: Comments Flag Yes; Hematocrit 34 % (42-52); Hemoglobin 11.4 g/dl (14.0-18.0); Mean Corpuscular HGB Conc 33 g/dl (31-36); Mean Corpuscular Hemoglobin 31 pg (27-31); Mean Corpuscular Volume 94 fL (80-94); Mean Platelet Volume 10 um3 (7.4-10.4); Red Blood Count 3.66 10^6/ul (4.0-5.4); Red Cell Distribution Width 14 % (10.5-15); White Blood Count 23.1 10^3/ul (3.5-10.8)
[2017-01-03 04:42] LABS: Add Diff/Slide Review? Slide Review Added
[2017-01-03 04:48] LABS: BUN/Creatinine Ratio 37.1 (8-20); Calcium 8.4 mg/dL (8.6-10.3); EGFR African American 138.2 (>60); EGFR Non-African American 107.4 (>60); Potassium 3.4 mmol/L (3.5-5.0)
[2017-01-03 05:06] LABS: Immature Granulocytes 10 % (0-9); Metamyelocytes % 1 % (0-2); Neutrophil % 84 % (38-83)
[2017-01-03 05:09] LABS: Toxic Granulation 2+
--- NOTE | 2017-01-03 07:39 | RAD ---
INDICATION: Sepsis COMPARISON: Chest x-ray dated December 31, 2016 TECHNIQUE: Single AP portable view of the chest was obtained. FINDINGS: Image quality is compromised due to the relative inferiority of a portable chest x-ray. The heart and mediastinum exhibit normal size and contour. Again seen is mild calcified atherosclerosis overlying the arch of the aorta. There is patchy density obscuring the bilateral lower lungs and causing costophrenic angle blunting. Visualized bones are normal for the patient's age. IMPRESSION: Patchy density obscuring the bilateral lower lungs could be seen with bilateral lower lobe pneumonia or pulmonary edema.
--- NOTE | 2017-01-03 08:55 | PN ---
Progress Note - Progress Note Date of Service: 12/31/16 Note: given cefepime, shows susceptibility. no further action required.
[2017-01-03] MEDS ORDERED: Influenza VAC *QUAD* 2017-18* 0.5 ML SYRINGE IM ONE ×2 (09:00→17:00)
[2017-01-03] MEDS: Mometasone/Formoter 200/5 MDI INH SCH ×2 (09:08→19:39)
[2017-01-03] MEDS: cefTRIAXone VIAL(*) 1,000 MG in NS 0.9% 50 ML* 50 ML IVPB SCH (09:55)
[2017-01-03] MEDS: Tobramycin/Dexameth OPTH.SUSP* 2.5 M L BTL BOTH EYES SCH ×3 (09:55→20:12)
--- NOTE | 2017-01-03 11:11 | ECHO ---
Patient: KEERTHI HALEY [facility] Rec#: [id number] : 1930 Date: 01/03/2017 Age: 86y Height: 170.18 cm / 67.0 in Weight: 55.79 kg / 123.0 lbs Sex: M BSA: 1.64 Room#: [facility] Admit Date#: 12/31/2016 Type: Inpatient Referring: Yoel Paul MD Reading: Ramon Lowery MD Herpetologist: Lacie MarxFLAQUITO CC: REGINALDO Castellano Transthoracic Echocardiogram Indication: Sepsis, elevated troponins. BP: 114/72 HR: 90 Rhythm: NSR with PVCs Findings History: Syncope, bilateral blindness, HTN, HLD, GERD, COPD, BPH, AAA, PAF, smoker. Technical Comments: The study is technically difficult. The study is technically limited due to poor acoustic windows. Completed at 0900. Left Ventricle: The left ventricular chamber size is normal. There is no left ventricular hypertrophy. Global left ventricular wall motion and contractility are within normal limits. There is normal left ventricular systolic function. The estimated ejection fraction is 55-60%. Normal left ventricular diastolic filling is observed. Left Atrium: The left atrial chamber size is normal. Right Ventricle: Moderator Band present. The right ventricular cavity size is normal. The right ventricular global systolic function is low normal. Right Atrium: The right atrium is mildly dilated. Aortic Valve: The aortic valve is trileaflet. The aortic valve leaflets are moderately thickened. There is evidence of aortic sclerosis without stenosis. There is no evidence of aortic regurgitation. There is no evidence of aortic stenosis. Mitral Valve: There is mitral annular calcification. The mitral valve leaflets are mildly thickened. There is a trace of mitral regurgitation. There is no evidence of mitral stenosis. Tricuspid Valve: The tricuspid valve leaflets are normal. There is mild tricuspid regurgitation. The right ventricular systolic pressure is estimated at 49 mmHg. There is evidence of moderate pulmonary hypertension. There is no tricuspid stenosis. Pulmonic Valve: The pulmonic valve appears normal. There is a trace pulmonic regurgitation. There is no pulmonic stenosis. Pericardium: There is no significant pericardial effusion. Aorta: The ascending aorta is not well visualized. The aortic arch is not well visualized. There is mild dilatation of the aortic root. Pulmonary Artery: The main pulmonary artery is not well visualized. Venous: The inferior vena cava is dilated. There is less than 50% respiratory change in the inferior vena cava dimension. Summary: There are no significant changes when compared to the previous study done on 02/26/15 Conclusions Global left ventricular wall motion and contractility are within normal limits. There is normal left ventricular systolic function. The estimated ejection fraction is 55-60%. The aortic valve leaflets are moderately thickened. There is no evidence of aortic stenosis. There is a trace of mitral regurgitation. There is mild tricuspid regurgitation. The right ventricular systolic pressure is estimated at 49 mmHg. There is evidence of moderate pulmonary hypertension. There is no significant pericardial effusion. Measurements Name Value Normal Range RVIDd (AP) 2D 3.1 cm (0.9 - 2.6) RVDdMajor (2D) 4.4 cm (2.2 - 4.4) RAd ISD 4CH 5.2 cm (3.4 - 4.9) RA (A4C)W 3.2 cm (2.9 - 4.6) IVSd (2D) 0.8 cm (0.6 - 1) LVPWd (2D) 1 cm (0.6 - 1) LVIDd (2D) 4.3 cm (3.6 - 5.4) LVIDs (2D) 3.3 cm - LV FS (2D) 23 % (25 - 45) Aortic Annulus 2.3 cm (1.4 - 2.6) Ao root diameter (2D) 3.6 cm (2.1 - 3.5) LA dimension (AP) 2D 3.4 cm (2.3 - 3.8) LAd ISD 4CH 4.2 cm (2.9 - 5.3) LA ISD 4CH W 4.7 cm (2.5 - 4.5) Name Value Normal Range LA ESV SP 4CH (A/L) 65 ml - LA ESV SP 2CH (A/L) 29 ml - LA ESV BP (A/L) 50 ml - LA ESV BP (A/L) index 30.11 ml/m2 - LA ESV SP 4CH (MOD) 61 ml - LA ESV SP 2CH (MOD) 30 ml - Name Value Normal Range MV E-wave Vmax 0.89 m/sec - MV deceleration time 183.25 msec - MV A-wave Vmax 0.46 m/sec - MV E:A ratio 1.93 ratio - LV septal e' Vmax 0.08 m/sec - LV lateral e' Vmax 0.1 m/sec - LV E:e' septal ratio 11.13 ratio - LV E:e' lateral ratio 8.9 ratio - Name Value Normal Range AV Vmax 1.5 m/sec - AV VTI 25.73 cm - AV peak gradient 9.33 mmHg - AV mean gradient 3.92 mmHg - LVOT diameter 2.1 cm - LVOT Vmax 0.91 m/sec - LVOT VTI 15.41 cm - LVOT peak gradient 3.28 mmHg - LVOT mean gradient 1.98 mmHg - Name Value Normal Range TR Vmax 2.7 m/sec - TR peak gradient 29 mmHg - RAP 20 mmHg - RVSP 49 mmHg - IVC diameter 2.32 cm - Name Value Normal Range PV Vmax 0.6 m/sec - PV peak gradient 1.43 mmHg -
--- NOTE | 2017-01-03 11:31 | PN ---
Subjective Date of Service: 01/03/17 Interval History: Events from overnight reviewed. Increased SOB, CXR with fluid vs consolidation. On no oxygen this AM with O2sat 97%, breathing comfortably. Says he feels "terrible" but will not elaborate Notably more sleepy today compared to yesterday Objective Active Medications: Acetaminophen (Tylenol Tab*) 650 mg PO Q6H PRN PRN Reason: PAIN Last Admin: 12/31/16 19:36 Dose: 650 mg Albuterol (Ventolin 2.5 Mg/3 Ml Neb.Nancie*) 2.5 mg INH RT.[id number] AWAKE PRN PRN Reason: sob/wheezing Albuterol/Ipratropium (Duoneb (Albuterol 2.5 Mg/Ipratropium 0.5 Mg)) 1 neb INH Q4H PRN PRN Reason: SOB/WHEEZING Last Admin: 01/03/17 09:11 Dose: 1 neb Ascorbic Acid (Vitamin C Tab*) 500 mg PO DAILY [facility] Last Admin: 01/02/17 11:43 Dose: Not Given Aspirin (Aspirin Low Dose Tab*) 81 mg PO DAILY [facility] Last Admin: 01/02/17 11:43 Dose: Not Given Atorvastatin Calcium (Lipitor*) 40 mg PO BEDTIME [facility] Last Admin: 01/02/17 21:14 Dose: 40 mg Digoxin (Lanoxin Tab*) 0.125 mg PO DAILY [facility] Last Admin: 01/02/17 08:28 Dose: 0.125 mg Docusate Sodium (Colace Cap*) 100 mg PO DAILY [facility] Last Admin: 01/02/17 11:43 Dose: Not Given Ferrous Sulfate (Ferrous Sulfate Tab*) 325 mg PO DAILY [facility] Last Admin: 01/02/17 08:27 Dose: 325 mg Finasteride (Proscar Tab*) 5 mg PO DAILY [facility] Last Admin: 01/02/17 08:28 Dose: 5 mg Ceftriaxone Sodium 1,000 mg/ (Sodium Chloride) 50 mls @ 200 mls/hr IVPB Q24H [facility] Last Admin: 01/03/17 09:55 Dose: 200 mls/hr Mometasone Furoate/Formoterol Fumar (Dulera 200/5 Mdi*) 2 puff INH BID [facility] Last Admin: 01/03/17 09:08 Dose: 2 puff Multivitamins/Minerals (Theragran/Minerals Tab*) 1 tab PO DAILY [facility] Last Admin: 01/02/17 11:43 Dose: Not Given Nutritional Supplements [Ensure] 1 Can 1 can PO TID [facility] Last Admin: 01/02/17 21:14 Dose: 1 can Omeprazole (Prilosec Cap*) 20 mg PO DAILY@0730 [facility] PRN Reason: Protocol Last Admin: 01/02/17 08:28 Dose: 20 mg Ondansetron HCl (Zofran Inj*) 4 mg IV Q4H PRN PRN Reason: NAUSEA/VOMITING Polyethylene Glycol/Electrolytes (Miralax*) 17 gm PO BID [facility] Last Admin: 01/02/17 21:14 Dose: 17 gm Tamsulosin HCl (Flomax Cap*) 0.4 mg PO BEDTIME [facility] Last Admin: 01/02/17 21:14 Dose: 0.4 mg Tobramycin/Dexamethasone (Tobradex 0.3-0.1%*) 1 drop BOTH EYES TID [facility] Last Admin: 01/03/17 09:55 Dose: 1 drop Vital Signs 01/02/17 01/02/17 01/02/17 12:00 12:11 12:44 Temperature 98.8 F 98.6 F 98.6 F Pulse Rate 105 103 102 Respiratory 20 23 22 Rate Blood Pressure 122/71 120/71 (mmHg) O2 Sat by Pulse 94 95 94 Oximetry 01/02/17 01/02/17 01/02/17 13:00 13:01 14:00 Temperature 98.6 F 98.8 F 98.8 F Pulse Rate 106 105 104 Respiratory 26 23 23 Rate Blood Pressure (mmHg) O2 Sat by Pulse 94 93 95 Oximetry 01/02/17 01/02/17 01/02/17 14:12 15:00 15:01 Temperature 98.8 F 98.8 F 98.8 F Pulse Rate 105 100 101 Respiratory 22 24 22 Rate Blood Pressure 118/67 123/85 (mmHg) O2 Sat by Pulse 95 95 95 Oximetry 01/02/17 01/02/17 01/02/17 16:00 17:00 17:01 Temperature 98.8 F 98.8 F 98.8 F Pulse Rate 97 99 100 Respiratory 22 22 23 Rate Blood Pressure 123/72 141/86 (mmHg) O2 Sat by Pulse 95 95 96 Oximetry 01/02/17 01/02/17 01/02/17 18:00 18:01 19:00 Temperature 98.6 F 98.6 F 98.6 F Pulse Rate 100 100 93 Respiratory 20 20 21 Rate Blood Pressure 141/95 (mmHg) O2 Sat by Pulse 96 96 94 Oximetry 01/02/17 01/02/17 01/02/17 19:38 20:00 20:01 Temperature 98.8 F 97.9 F 98.4 F Pulse Rate 100 82 91 Respiratory 21 23 22 Rate Blood Pressure 125/76 142/84 (mmHg) O2 Sat by Pulse 95 94 94 Oximetry 01/02/17 01/02/17 01/02/17 20:08 20:14 20:15 Temperature 98.4 F 98.4 F Pulse Rate 97 97 96 Respiratory 21 22 22 Rate Blood Pressure 142/84 142/84 (mmHg) O2 Sat by Pulse 94 94 94 Oximetry 01/02/17 01/02/17 01/02/17 20:16 20:17 20:19 Temperature 98.1 F 98.2 F 98.4 F Pulse Rate 82 86 84 Respiratory 20 23 23 Rate Blood Pressure 142/84 142/84 142/84 (mmHg) O2 Sat by Pulse 93 94 94 Oximetry 01/02/17 01/02/17 01/02/17 20:21 20:24 20:41 Temperature 98.4 F 98.4 F 98.6 F Pulse Rate 82 90 97 Respiratory 20 23 23 Rate Blood Pressure 142/84 142/84 142/84 (mmHg) O2 Sat by Pulse 94 95 94 Oximetry 01/02/17 01/02/17 01/02/17 21:00 21:01 22:00 Temperature 98.6 F 98.6 F 99.1 F Pulse Rate 93 99 95 Respiratory 23 19 18 Rate Blood Pressure 119/65 131/86 (mmHg) O2 Sat by Pulse 94 93 97 Oximetry 01/02/17 01/02/17 01/02/17 22:01 23:00 23:01 Temperature 99.3 F 99.5 F 99.5 F Pulse Rate 86 95 99 Respiratory 24 26 23 Rate Blood Pressure 144/85 (mmHg) O2 Sat by Pulse 98 95 95 Oximetry 01/02/17 01/03/17 01/03/17 23:22 00:00 00:01 Temperature 99.5 F 99.5 F 99.5 F Pulse Rate 97 101 112 Respiratory 21 24 17 Rate Blood Pressure 148/89 (mmHg) O2 Sat by Pulse 94 93 93 Oximetry 01/03/17 01/03/17 01/03/17 00:49 01:00 01:01 Temperature 100.0 F 99.9 F Pulse Rate 112 115 115 Respiratory 26 24 28 Rate Blood Pressure 158/107 (mmHg) O2 Sat by Pulse 99 96 96 Oximetry 01/03/17 01/03/17 01/03/17 01:15 02:00 03:00 Temperature 100.0 F 99.9 F 99.7 F Pulse Rate 108 102 94 Respiratory 29 23 20 Rate Blood Pressure 156/85 120/72 125/68 (mmHg) O2 Sat by Pulse 95 95 95 Oximetry 01/03/17 01/03/17 01/03/17 03:01 04:00 04:01 Temperature 99.7 F 99.7 F 99.7 F Pulse Rate 97 102 105 Respiratory 21 22 24 Rate Blood Pressure 127/74 (mmHg) O2 Sat by Pulse 96 96 96 Oximetry 01/03/17 01/03/17 01/03/17 05:00 05:01 05:58 Temperature 99.7 F 99.7 F Pulse Rate 87 85 Respiratory 25 23 25 Rate Blood Pressure 118/73 (mmHg) O2 Sat by Pulse 98 97 Oximetry 01/03/17 01/03/17 01/03/17 06:00 06:01 07:00 Temperature 99.5 F 99.5 F 99.7 F Pulse Rate 85 84 85 Respiratory 21 22 24 Rate Blood Pressure 114/72 111/63 (mmHg) O2 Sat by Pulse 96 96 96 Oximetry 01/03/17 01/03/17 01/03/17 07:32 08:00 08:01 Temperature 100.3 F 99.5 F 99.5 F Pulse Rate 84 84 Respiratory 23 24 Rate Blood Pressure 126/70 (mmHg) O2 Sat by Pulse 96 96 Oximetry 01/03/17 01/03/17 01/03/17 09:00 09:01 09:12 Temperature 99.5 F 99.5 F Pulse Rate 80 79 82 Respiratory 23 23 24 Rate Blood Pressure 130/69 (mmHg) O2 Sat by Pulse 96 96 96 Oximetry 01/03/17 10:00 Temperature Pulse Rate Respiratory 17 Rate Blood Pressure (mmHg) O2 Sat by Pulse Oximetry Oxygen Devices in Use Now: None, Nasal Cannula Appearance: NAD Eyes: No Scleral Icterus, PERRLA Ears/Nose/Mouth/Throat: - - dry mm Neck: NL Appearance and Movements; NL JVP, Trachea Midline Respiratory: Symmetrical Chest Expansion and Respiratory Effort, - - decreased in bases, rales b/l bases Cardiovascular: RRR Abdominal: NL Sounds; No Tenderness; No Distention, No Hepatosplenomegaly Lymphatic: No Cervical Adenopathy Extremities: No Edema, No Clubbing, Cyanosis Skin: No Rash or Ulcers Neurological: - - AOx2 to self and location Result Diagrams: 01/03/17 04:15 01/03/17 04:15 Microbiology and Other Data: Microbiology 12/31/16 16:56 Anaerobic Blood Culture - Preliminary Blood Venous 12/31/16 16:56 Anaerobic Blood Culture - Preliminary Blood Venous 12/31/16 18:50 Nasal Screen MRSA (PCR)([facility]) - Final Nasal Mrsa Positive Assess/Plan/Problems-Billing Assessment: 86 M h/o b/l blindness, COPD, HTN, BPH p/w severe sepsis found with gram negative bacteremia - Patient Problems (1) Severe sepsis Comment: E. coli in urine and blood Encephalopathy on presentation secondary to sepsis - now resolved change cefepime back to CTX based on sensitivities d/c fluids WBC remains elevated - CT today to evaluate lungs and abdomen/pelvis to eval for abscess (2) UTI (urinary tract infection) Comment: source of infection CTX as above (3) COPD (chronic obstructive pulmonary disease) Comment: momo hines (4) HTN (hypertension) Comment: hold norvasc (5) Demand ischemia Comment: Chest pain free Suspect in setting of tachycradia then hypotension after receiving cardizem check TTE - pending (6) Paroxysmal atrial fibrillation Comment: Sinus rhythm Not on chronic anticoagulation Continue digoxin -lvl low but will not adjust until stable from hemodynamic perspective (7) Dysphagia Comment: RN suspects some swallowing dysfunction - swallow eval ordered (8) DVT prophylaxis Comment: SQ heparin
[2017-01-03] MEDS: Omeprazole CAP* 20 MG PO SCH (12:15)
[2017-01-03] MEDS: Ascorbic Acid TAB* 500 MG PO SCH (12:16)
[2017-01-03] MEDS: Digoxin TAB* 0.125 MG PO SCH ×2 (12:16→16:01)
[2017-01-03] MEDS: Docusate CAP* 100 MG PO SCH (12:16)
[2017-01-03] MEDS: Aspirin Low Dose CHEW TAB* 81 MG PO SCH (12:16)
[2017-01-03] MEDS: Multivitamins/Minerals TAB PO SCH (12:17)
[2017-01-03] MEDS: Ferrous Sulfate TAB* 325 MG PO SCH (12:17)
[2017-01-03] MEDS: Finasteride TAB* 5 MG PO SCH (12:17)
[2017-01-03] MEDS: NUTRITIONAL SUPPLEMENTS PO SCH ×3 (12:18→20:12)
[2017-01-03] MEDS: Polyethylene Glycol 3350* 17 GM PACKET PO SCH ×2 (12:18→20:12)
[2017-01-03] MEDS ORDERED: Iohexol 300* (CONTRAST) 10 ML SDV IV SCH (17:43)
--- NOTE | 2017-01-03 18:49 | RAD ---
INDICATION: Increased white blood cell count. Pneumonia versus perinephric abscess with urosepsis. COMPARISON: Chest radiograph of the same date and August 11, 2012 CT abdomen pelvis. TECHNIQUE: Multidetector CT images were obtained from the lung apices to the ischial tuberosities with 73 mL Omnipaque 300 IV contrast. No oral contrast administered. CHEST REPORT: Panlobular severe emphysema. Mild diffuse prominence of interstitial markings. Bilateral moderate dependent pleural effusions with partial atelectasis primarily involving the lower lobes. Negative for pneumothorax. Negative for thoracic lymphadenopathy, cardiomegaly, pericardial effusion. Normal diameter thoracic aorta with mild atherosclerotic plaque. Negative for dissection of the thoracic aorta. Negative for thoracic fractures or suspicious focal osseous lesions. CHEST IMPRESSION: Bilateral moderate dependent pleural effusions with partial atelectasis primarily involving the lower lobes. No evidence for pneumonia. Mild interstitial pulmonary edema not excluded. ABDOMEN PELVIS REPORT: No CT abnormality of the liver, normally distended gallbladder, pancreas aside from mild atrophy, or spleen. Diffuse mural thickening of the stomach without suggestion of pneumatosis or gastric obstruction. The duodenum drapes over the abdominal aortic aneurysm without suspicious finding of the duodenum. No CT abnormality of the small bowel loops. Normal morphology appendix visualized medial to the cecum most conspicuous on the coronal series reference images 32-40. Moderate colonic diverticulosis without findings of acute diverticulitis. Small volume of nonloculated peritoneal fluid primarily at the dependent pelvis. Negative for free air or hernias. Normal adrenal glands. Symmetric nephrograms and pyelograms. Negative for obstructive uropathy. Small parapelvic cyst mid pole LEFT kidney. No suspicious focal renal lesions. Unremarkable nondilated ureters. Catheterized decompressed urinary bladder. Negative for lymphadenopathy. Fusiform aneurysm of the infrarenal abdominal aorta begins just below the level of the renal arteries and extends to the bifurcation measuring up to 7.4 cm AP by 8.1 cm transverse and extending over a cephalocaudal length of 11 cm. Extensive mural plaque within the aneurysm without resulting images demonstrate significant stenosis at the aorta however there is suggestion of high-grade stenosis at the proximal bilateral common iliac arteries. Negative for aneurysm of the common iliac arteries. Partial physiologic distention of the IVC. Negative for retroperitoneal hematoma. Negative for suspicious focal osseous lesions or fractures. ABDOMEN PELVIS IMPRESSION: 1. Large fusiform aneurysm of the infrarenal abdominal aorta measuring up to 7.4 x 8.1 cm orthogonal diameter compared with 6.3 x 6.6 cm on the [address] stigmata of aneurysm leak. 2. Suggestion of high-grade stenosis at the aortic bifurcation/bilateral proximal common iliac arteries; correlate for potential Leriche syndrome. 3. Diffuse mural thickening of the stomach new compared with the prior exam which may reflect gastritis or potentially infiltrative tumor. Consider endoscopy for further assessment. 4. Negative for obstructive uropathy or perinephric abscess. 5. Small volume of ascites. No peritoneal abscess collection evident.
[2017-01-03] MEDS: Atorvastatin* 40 MG TAB PO SCH (20:11)
[2017-01-03] MEDS: Tamsulosin CAP* 0.4 MG PO SCH (20:12)
[2017-01-04 04:23] LABS: Hematocrit 34 % (42-52); Hemoglobin 11.4 g/dl (14.0-18.0); Mean Corpuscular HGB Conc 34 g/dl (31-36); Mean Corpuscular Hemoglobin 32 pg (27-31); Mean Corpuscular Volume 94 fL (80-94); Mean Platelet Volume 10 um3 (7.4-10.4); Red Cell Distribution Width 14 % (10.5-15); White Blood Count 14.6 10^3/ul (3.5-10.8)
[2017-01-04 04:24] LABS: Comments Flag Yes
[2017-01-04 04:25] LABS: Add Diff/Slide Review? Slide Review Added
[2017-01-04] MEDS: Multivitamins/Minerals TAB PO SCH (07:47)
[2017-01-04] MEDS: Acetaminophen TAB* 325 MG PO PRN (07:47)
[2017-01-04] MEDS: Docusate CAP* 100 MG PO SCH (07:48)
[2017-01-04] MEDS: Aspirin Low Dose CHEW TAB* 81 MG PO SCH (07:48)
[2017-01-04] MEDS: Omeprazole CAP* 20 MG PO SCH (07:48)
[2017-01-04] MEDS: Ferrous Sulfate TAB* 325 MG PO SCH (07:48)
[2017-01-04] MEDS: Polyethylene Glycol 3350* 17 GM PACKET PO SCH ×2 (07:48→21:25)
[2017-01-04] MEDS: Ascorbic Acid TAB* 500 MG PO SCH (07:48)
[2017-01-04] MEDS: Finasteride TAB* 5 MG PO SCH (07:48)
[2017-01-04] MEDS: cefTRIAXone VIAL(*) 1,000 MG in NS 0.9% 50 ML* 50 ML IVPB SCH (08:15)
[2017-01-04] MEDS: Tobramycin/Dexameth OPTH.SUSP* 2.5 M L BTL BOTH EYES SCH ×3 (08:19→21:25)
[2017-01-04] MEDS: NUTRITIONAL SUPPLEMENTS PO SCH ×3 (08:55→21:35)
[2017-01-04] MEDS: Mometasone/Formoter 200/5 MDI INH SCH ×2 (11:46→20:39)
--- NOTE | 2017-01-04 15:18 | PN ---
Subjective Date of Service: 01/04/17 Interval History: More alert, BP much improved Discussed AAA seen on CT scan. Pt is confused, starts talking about a blood clot in his arm. His delerium precludes his ability to manage his own medical decisions. Denies any current pain, N/V, LH, SOB, CP Objective Active Medications: Acetaminophen (Tylenol Tab*) 650 mg PO Q6H PRN PRN Reason: PAIN Last Admin: 01/04/17 07:47 Dose: 650 mg Albuterol (Ventolin 2.5 Mg/3 Ml Neb.Nancie*) 2.5 mg INH [id number] AWAKE PRN PRN Reason: sob/wheezing Albuterol/Ipratropium (Duoneb (Albuterol 2.5 Mg/Ipratropium 0.5 Mg)) 1 neb INH Q4H PRN PRN Reason: SOB/WHEEZING Last Admin: 01/03/17 09:11 Dose: 1 neb Ascorbic Acid (Vitamin C Tab*) 500 mg PO DAILY [facility] Last Admin: 01/04/17 07:48 Dose: 500 mg Aspirin (Aspirin Low Dose Tab*) 81 mg PO DAILY [facility] Last Admin: 01/04/17 07:48 Dose: 81 mg Atorvastatin Calcium (Lipitor*) 40 mg PO BEDTIME [facility] Last Admin: 01/03/17 20:11 Dose: 40 mg Digoxin (Lanoxin Tab*) 0.125 mg PO DAILY@1700 [facility] Last Admin: 01/03/17 16:01 Dose: 0.125 mg Docusate Sodium (Colace Cap*) 100 mg PO DAILY [facility] Last Admin: 01/04/17 07:48 Dose: 100 mg Ferrous Sulfate (Ferrous Sulfate Tab*) 325 mg PO DAILY [facility] Last Admin: 01/04/17 07:48 Dose: 325 mg Finasteride (Proscar Tab*) 5 mg PO DAILY [facility] Last Admin: 01/04/17 07:48 Dose: 5 mg Ceftriaxone Sodium 1,000 mg/ (Sodium Chloride) 50 mls @ 200 mls/hr IVPB Q24H [facility] Last Admin: 01/04/17 08:15 Dose: 200 mls/hr Iohexol (Omnipaque 300* (Contrast)) 73 ml IV ONCE RADHA Stop: 01/05/17 17:42 Last Admin: 01/03/17 17:51 Dose: 73 ml Mometasone Furoate/Formoterol Fumar (Dulera 200/5 Mdi*) 2 puff INH BID [facility] Last Admin: 01/04/17 11:46 Dose: 2 puff Multivitamins/Minerals (Theragran/Minerals Tab*) 1 tab PO DAILY [facility] Last Admin: 01/04/17 07:47 Dose: 1 tab Nutritional Supplements [Ensure] 1 Can 1 can PO TID [facility] Last Admin: 01/04/17 08:55 Dose: Not Given Omeprazole (Prilosec Cap*) 20 mg PO DAILY@0730 [facility] PRN Reason: Protocol Last Admin: 01/04/17 07:48 Dose: 20 mg Ondansetron HCl (Zofran Inj*) 4 mg IV Q4H PRN PRN Reason: NAUSEA/VOMITING Polyethylene Glycol/Electrolytes (Miralax*) 17 gm PO BID [facility] Last Admin: 01/04/17 07:48 Dose: 17 gm Tamsulosin HCl (Flomax Cap*) 0.4 mg PO BEDTIME [facility] Last Admin: 01/03/17 20:12 Dose: 0.4 mg Tobramycin/Dexamethasone (Tobradex 0.3-0.1%*) 1 drop BOTH EYES TID [facility] Last Admin: 01/04/17 08:19 Dose: 1 drop Vital Signs 01/03/17 01/03/17 01/03/17 16:00 16:01 17:00 Temperature 98.8 F 99.5 F Pulse Rate 73 80 79 Respiratory 22 18 Rate Blood Pressure 130/72 111/52 (mmHg) O2 Sat by Pulse 98 90 Oximetry 01/03/17 01/03/17 01/03/17 18:09 19:00 19:01 Temperature 99.3 F 99.1 F 99.1 F Pulse Rate 83 86 Respiratory 24 22 Rate Blood Pressure 144/94 (mmHg) O2 Sat by Pulse 96 95 Oximetry 01/03/17 01/03/17 01/03/17 19:41 20:00 20:01 Temperature 99.3 F 99.3 F Pulse Rate 96 80 78 Respiratory 18 23 22 Rate Blood Pressure 139/72 (mmHg) O2 Sat by Pulse 95 94 95 Oximetry 01/03/17 01/03/17 01/03/17 21:00 21:50 22:00 Temperature 99.5 F 99.9 F Pulse Rate 88 86 Respiratory 22 21 22 Rate Blood Pressure 144/86 135/82 (mmHg) O2 Sat by Pulse 95 95 Oximetry 01/03/17 01/03/17 01/03/17 22:01 23:00 23:01 Temperature 99.7 F 99.9 F 99.9 F Pulse Rate 78 87 90 Respiratory 22 23 22 Rate Blood Pressure 143/78 (mmHg) O2 Sat by Pulse 94 94 94 Oximetry 01/04/17 01/04/17 01/04/17 00:00 00:03 00:06 Temperature 99.9 F 99.9 F 99.9 F Pulse Rate 81 85 86 Respiratory 19 20 21 Rate Blood Pressure 145/83 (mmHg) O2 Sat by Pulse 95 95 94 Oximetry 01/04/17 01/04/17 01/04/17 00:58 01:00 01:01 Temperature 99.9 F 99.9 F Pulse Rate 80 79 Respiratory 18 19 17 Rate Blood Pressure 139/72 (mmHg) O2 Sat by Pulse 94 94 Oximetry 01/04/17 01/04/17 01/04/17 02:00 02:01 02:51 Temperature 99.9 F 99.9 F Pulse Rate 90 89 Respiratory 27 23 21 Rate Blood Pressure 155/94 (mmHg) O2 Sat by Pulse 94 96 Oximetry 01/04/17 01/04/17 01/04/17 03:00 04:00 05:00 Temperature 99.9 F 99.7 F 99.9 F Pulse Rate 91 93 80 Respiratory 24 21 23 Rate Blood Pressure 144/85 154/86 143/85 (mmHg) O2 Sat by Pulse 95 96 95 Oximetry 01/04/17 01/04/17 01/04/17 05:01 06:00 06:01 Temperature 99.9 F 100.0 F 100.0 F Pulse Rate 82 84 85 Respiratory 22 21 23 Rate Blood Pressure 142/76 (mmHg) O2 Sat by Pulse 95 96 95 Oximetry 01/04/17 01/04/17 01/04/17 07:00 07:01 07:21 Temperature 100.2 F 100.2 F 99.1 F Pulse Rate 83 81 Respiratory 22 22 Rate Blood Pressure 140/73 (mmHg) O2 Sat by Pulse 95 95 Oximetry 01/04/17 01/04/17 01/04/17 08:00 08:01 09:00 Temperature 99.5 F 100.0 F 99.5 F Pulse Rate 92 89 88 Respiratory 18 22 27 Rate Blood Pressure 158/98 (mmHg) O2 Sat by Pulse 95 95 96 Oximetry 01/04/17 01/04/17 01/04/17 09:01 10:00 10:01 Temperature 99.5 F 99.5 F 99.3 F Pulse Rate 84 80 69 Respiratory 26 21 20 Rate Blood Pressure 151/94 153/91 (mmHg) O2 Sat by Pulse 95 94 95 Oximetry 01/04/17 01/04/17 01/04/17 11:00 11:01 11:29 Temperature 99.5 F 99.5 F Pulse Rate 74 77 72 Respiratory 20 24 18 Rate Blood Pressure 137/83 (mmHg) O2 Sat by Pulse 96 96 95 Oximetry 01/04/17 01/04/17 11:47 12:00 Temperature 97.8 F Pulse Rate 75 Respiratory 18 Rate Blood Pressure (mmHg) O2 Sat by Pulse 95 Oximetry Oxygen Devices in Use Now: None Appearance: NAD Ears/Nose/Mouth/Throat: Clear Oropharnyx, Mucous Membranes Moist Neck: NL Appearance and Movements; NL JVP, Trachea Midline Respiratory: Symmetrical Chest Expansion and Respiratory Effort, - - rales in b/ l bases Cardiovascular: RRR Abdominal: NL Sounds; No Tenderness; No Distention, No Hepatosplenomegaly Lymphatic: No Cervical Adenopathy Extremities: No Edema, No Clubbing, Cyanosis Skin: No Rash or Ulcers Neurological: - - AOx2 to self and hospital will not offer a guess for the date (has been consistent) blind b/l otherwise cnerves intact Result Diagrams: 01/04/17 04:06 01/03/17 04:15 Microbiology and Other Data: Microbiology 12/31/16 16:56 Anaerobic Blood Culture - Preliminary Blood Venous 12/31/16 16:56 Anaerobic Blood Culture - Preliminary Blood Venous 12/31/16 18:50 Nasal Screen MRSA (PCR)([facility]) - Final Nasal Mrsa Positive Assess/Plan/Problems-Billing Assessment: 86 M h/o b/l blindness, COPD, HTN, BPH p/w severe sepsis found with gram negative bacteremia - Patient Problems (1) Severe sepsis Comment: E. coli in urine and blood Encephalopathy on presentation secondary to sepsis - now resolved change cefepime back to CTX based on sensitivities d/c fluids CT did not identify abscess or other etiology for elevated wbc. Leukocytosis starting to improve today. (2) UTI (urinary tract infection) Comment: source of infection CTX as above (3) COPD (chronic obstructive pulmonary disease) Comment: momo hines (4) HTN (hypertension) Comment: del cook (5) Demand ischemia Comment: Chest pain free Suspect in setting of tachycradia then hypotension after receiving cardizem TTE without RWMA (6) Paroxysmal atrial fibrillation Comment: Sinus rhythm Not on chronic anticoagulation Continue digoxin -lvl low but will not adjust until stable from hemodynamic perspective (7) Dysphagia Comment: [place] thick liquids (8) Abdominal aortic aneurysm (AAA) Comment: 8.1cm in largest diabeter increased from 2013 Spoke with Genesis Rivera. She is unsure if he would want an intervention (he did not in the past). Discussed best plan of care and I will refer to vascular surgery for follow up. I faxed facesheet, H&P, and CT report to [facility] vascular service who also sees patients in [place] on Fridays. They indicated they will call pt with an appointment. May be beneficial to follow up with them before he is discharged. [phone] (9) DVT prophylaxis Comment: SQ heparin (10) Thrombocytopenia Comment: Worse in setting of sepsis but slow to recover Attention to level in setting of large AAA
[2017-01-04] MEDS: Digoxin TAB* 0.125 MG PO SCH (17:11)
[2017-01-04] MEDS: Atorvastatin* 40 MG TAB PO SCH (21:24)
[2017-01-04] MEDS: Tamsulosin CAP* 0.4 MG PO SCH (21:24)
[2017-01-05 07:12] LABS: Hematocrit 34 % (42-52); Hemoglobin 11.8 g/dl (14.0-18.0); Mean Corpuscular HGB Conc 34 g/dl (31-36); Mean Corpuscular Hemoglobin 32 pg (27-31); Mean Corpuscular Volume 92 fL (80-94); Mean Platelet Volume 9 um3 (7.4-10.4); Red Blood Count 3.73 10^6/ul (4.0-5.4); Red Cell Distribution Width 14 % (10.5-15); White Blood Count 7.1 10^3/ul (3.5-10.8)
[2017-01-05 07:16] LABS: Comments Flag Yes
[2017-01-05] MEDS: Mometasone/Formoter 200/5 MDI INH SCH ×2 (08:13→20:12)
[2017-01-05] MEDS: Albuterol/Ipratropium NEB.SOL* Albuterol 2.5 MG/Ipratropium 0.5 MG 3 ML INH PRN ×2 (08:24→08:26)
[2017-01-05] MEDS ORDERED: NS 0.9% 500 ML* 500 ML IV ONE (09:40)
[2017-01-05] MEDS ORDERED: Metoprolol Tartrate IV* 1 MG/ML 5 ML VIAL IV PRN (09:40)
[2017-01-05] MEDS ORDERED: Metoprolol Tartrate IV* 1 MG/ML 5 ML VIAL ONE (09:53)
[2017-01-05] MEDS: cefTRIAXone VIAL(*) 1,000 MG in NS 0.9% 50 ML* 50 ML IVPB SCH (10:00)
[2017-01-05] MEDS: Ascorbic Acid TAB* 500 MG PO SCH (10:10)
[2017-01-05] MEDS: Finasteride TAB* 5 MG PO SCH (10:11)
[2017-01-05] MEDS: Omeprazole CAP* 20 MG PO SCH (10:11)
[2017-01-05] MEDS: Multivitamins/Minerals TAB PO SCH (10:11)
[2017-01-05] MEDS: Ferrous Sulfate TAB* 325 MG PO SCH (10:11)
[2017-01-05] MEDS: Acetaminophen TAB* 325 MG PO PRN ×2 (10:11→21:57)
[2017-01-05] MEDS: Aspirin Low Dose CHEW TAB* 81 MG PO SCH (10:11)
[2017-01-05] MEDS: Docusate CAP* 100 MG PO SCH (10:20)
[2017-01-05] MEDS: Polyethylene Glycol 3350* 17 GM PACKET PO SCH ×2 (10:21→21:58)
[2017-01-05] MEDS: Tobramycin/Dexameth OPTH.SUSP* 2.5 M L BTL BOTH EYES SCH ×3 (10:21→21:59)
[2017-01-05] MEDS: NUTRITIONAL SUPPLEMENTS PO SCH ×3 (11:13→23:20)
[2017-01-05 11:35] LABS: BUN/Creatinine Ratio 28.6 (8-20); Calcium 8.2 mg/dL (8.6-10.3); EGFR Non-African American 121.3 (>60); Potassium 3.5 mmol/L (3.5-5.0)
[2017-01-05 11:53] LABS: Digoxin 0.8 ng/ml (0.8-2.0)
[2017-01-05] MEDS ORDERED: Potassium Chlor TAB* 20 MEQ TAB.ER PO ONE (11:58)
[2017-01-05] MEDS: KCL 20 MEQ/100 ML IVPREMIX* 20 MEQ/100 ML BAG IV SCH ×2 (12:21→15:08)
[2017-01-05] MEDS: Digoxin TAB* 0.125 MG PO SCH (17:12)
--- NOTE | 2017-01-05 17:53 | PN ---
Subjective Date of Service: 01/05/17 Interval History: Less delerius, complaint of right hip pain (?claudication based on PVD) that is chronic. Afib with RVR to 140s, improved after 500cc bolus and lopressor 5mg. K repletion. Digoxin level 0.8. Diet advanced. Leukocytosis improved to 7.1. PLTs still 50. Objective Active Medications: Acetaminophen (Tylenol Tab*) 650 mg PO Q6H PRN PRN Reason: PAIN Last Admin: 01/05/17 10:11 Dose: 650 mg Albuterol (Ventolin 2.5 Mg/3 Ml Neb.Nancie*) 2.5 mg INH RT.[id number] AWAKE PRN PRN Reason: sob/wheezing Albuterol/Ipratropium (Duoneb (Albuterol 2.5 Mg/Ipratropium 0.5 Mg)) 1 neb INH Q4H PRN PRN Reason: SOB/WHEEZING Last Admin: 01/05/17 08:26 Dose: 1 neb Ascorbic Acid (Vitamin C Tab*) 500 mg PO DAILY [facility] Last Admin: 01/05/17 10:10 Dose: 500 mg Aspirin (Aspirin Low Dose Tab*) 81 mg PO DAILY [facility] Last Admin: 01/05/17 10:11 Dose: 81 mg Atorvastatin Calcium (Lipitor*) 40 mg PO BEDTIME [facility] Last Admin: 01/04/17 21:24 Dose: 40 mg Digoxin (Lanoxin Tab*) 0.125 mg PO DAILY@1700 [facility] Last Admin: 01/05/17 17:12 Dose: 0.125 mg Docusate Sodium (Colace Cap*) 100 mg PO DAILY [facility] Last Admin: 01/05/17 10:20 Dose: 100 mg Ferrous Sulfate (Ferrous Sulfate Tab*) 325 mg PO DAILY [facility] Last Admin: 01/05/17 10:11 Dose: 325 mg Finasteride (Proscar Tab*) 5 mg PO DAILY [facility] Last Admin: 01/05/17 10:11 Dose: 5 mg Ceftriaxone Sodium 1,000 mg/ (Sodium Chloride) 50 mls @ 200 mls/hr IVPB Q24H [facility] Last Admin: 01/05/17 10:00 Dose: 200 mls/hr Metoprolol Tartrate (Lopressor Iv*) 5 mg IV Q5M PRN PRN Reason: TACHYCARDIA Last Admin: 01/05/17 10:05 Dose: 5 mg Mometasone Furoate/Formoterol Fumar (Dulera 200/5 Mdi*) 2 puff INH BID [facility] Last Admin: 01/05/17 08:13 Dose: 2 puff Multivitamins/Minerals (Theragran/Minerals Tab*) 1 tab PO DAILY [facility] Last Admin: 01/05/17 10:11 Dose: 1 tab Nutritional Supplements [Ensure] 1 Can 1 can PO TID [facility] Last Admin: 01/05/17 15:11 Dose: 1 can Omeprazole (Prilosec Cap*) 20 mg PO DAILY@0730 [facility] PRN Reason: Protocol Last Admin: 01/05/17 10:11 Dose: 20 mg Ondansetron HCl (Zofran Inj*) 4 mg IV Q4H PRN PRN Reason: NAUSEA/VOMITING Polyethylene Glycol/Electrolytes (Miralax*) 17 gm PO BID [facility] Last Admin: 01/05/17 10:21 Dose: 17 gm Tamsulosin HCl (Flomax Cap*) 0.4 mg PO BEDTIME [facility] Last Admin: 01/04/17 21:24 Dose: 0.4 mg Tobramycin/Dexamethasone (Tobradex 0.3-0.1%*) 1 drop BOTH EYES TID [facility] Last Admin: 01/05/17 15:11 Dose: 1 drop Vital Signs 01/04/17 01/04/17 01/04/17 19:58 20:00 20:39 Temperature 98.4 F Pulse Rate 87 87 Respiratory 18 18 18 Rate Blood Pressure 150/87 (mmHg) O2 Sat by Pulse 98 98 98 Oximetry 01/04/17 01/05/17 01/05/17 23:14 03:00 03:11 Temperature 98.1 F 97.9 F 98.4 F Pulse Rate 88 86 151 Respiratory 17 20 23 Rate Blood Pressure 143/75 106/51 121/89 (mmHg) O2 Sat by Pulse 95 96 96 Oximetry 01/05/17 01/05/17 01/05/17 03:22 07:45 08:28 Temperature 98.3 F Pulse Rate 91 91 140 Respiratory 16 18 Rate Blood Pressure 86/54 (mmHg) O2 Sat by Pulse 97 94 Oximetry 01/05/17 01/05/17 15:00 17:12 Temperature 97.9 F Pulse Rate 86 80 Respiratory 20 Rate Blood Pressure 106/51 (mmHg) O2 Sat by Pulse 96 Oximetry Oxygen Devices in Use Now: None Appearance: blind, lying in bed, wedged onto left hip. NAD Eyes: - - right eye shut, left glassy Ears/Nose/Mouth/Throat: NL Teeth, Lips, Gums Neck: NL Appearance and Movements; NL JVP Respiratory: Symmetrical Chest Expansion and Respiratory Effort, - - anteriorly CTAB, no wheezing, rhonchi or rales Cardiovascular: - - irregularly irregular, tachycardic. no murmurs appreciated Abdominal: NL Sounds; No Tenderness; No Distention, No Hepatosplenomegaly Extremities: No Edema, No Clubbing, Cyanosis Skin: No Rash or Ulcers, No Nodules or Sclerosis Neurological: - - Oriented to name and [facility] Result Diagrams: 01/05/17 06:54 01/05/17 06:54 Additional Lab and Data: Laboratory Results - last 24 hr 01/05/17 01/05/17 06:54 06:54 WBC 7.1 RBC 3.73 L Hgb 11.8 L Hct 34 L MCV 92 MCH 32 H MCHC 34 RDW 14 Plt Count 50 L MPV 9 Sodium 135 Potassium 3.5 Chloride 107 Carbon Dioxide 20 L Anion Gap 8 BUN 18 Creatinine 0.63 L Est GFR ( Amer) 156.0 Est GFR (Non-Af Amer) 121.3 BUN/Creatinine Ratio 28.6 H Glucose 101 H Calcium 8.2 L Magnesium 2.0 Digoxin 0.8 Microbiology and Other Data: Microbiology 12/31/16 16:56 Blood Venous Aerobic Blood Culture - Final Escherichia Coli 12/31/16 16:56 Blood Venous Anaerobic Blood Culture - Final Escherichia Coli 12/31/16 16:56 Blood Venous Aerobic Blood Culture - Final Escherichia Coli 12/31/16 16:56 Blood Venous Anaerobic Blood Culture - Final Escherichia Coli 12/31/16 18:50 Nasal Nasal Screen MRSA (PCR)([facility]) - Final Mrsa Positive Assess/Plan/Problems-Billing Assessment: 86 M PMH blindness, COPD, HTN, BPH, Afib (on digoxin), large AAA p/w syncope, severe sepsis 2/2 Ecoli bacteremia. AAA bigger now 8.1x7.4cm. Right hip pain chronic (?claudication/?Leriche's syndrome). Thrombocytopenic - Patient Problems (1) Severe sepsis Current Visit: Yes Status: Acute Code(s): A41.9 - SEPSIS, UNSPECIFIED ORGANISM; R65.20 - SEVERE SEPSIS WITHOUT SEPTIC SHOCK SNOMED Code(s): 75595428 Comment: E. coli in urine and blood Encephalopathy on presentation secondary to sepsis - now resolved Continue CFTX based on sensitivities. Day [address] did not identify abscess or other etiology for elevated wbc. Leukocytosis starting to improve today. (2) Paroxysmal atrial fibrillation Current Visit: Yes Status: Chronic Code(s): I48.0 - PAROXYSMAL ATRIAL FIBRILLATION SNOMED Code(s): 791272610 Comment: went into RVR 01/05. Improved with 500cc NS and lopressor 5mg. replete K>4, Mg>2. Not on chronic anticoagulation Continue digoxin 0.125mg daily- level 0.8 (3) Abdominal aortic aneurysm (AAA) Current Visit: Yes Status: Acute Code(s): I71.4 - ABDOMINAL AORTIC ANEURYSM , WITHOUT RUPTURE SNOMED Code(s): 339958292 Comment: 8.1cm in largest diabeter increased from 2013 (6.6cm) Dr. Paul spoke with Genesis Rivera. She is unsure if he would want an intervention (he did not in the past). f/u w/ vascular surgery for follow up. s/ p faxed facesheet, H&P, and CT report to [facility] vascular service who also sees patients in [place] on Fridays. They indicated they will call pt with an appointment. (4) Demand ischemia Current Visit: Yes Status: Acute Code(s): I24.8 - OTHER FORMS OF ACUTE ISCHEMIC HEART DISEASE SNOMED Code(s): 693579054 Comment: Chest pain free Suspect in setting of tachycradia then hypotension after receiving cardizem TTE without RWMA (5) Thrombocytopenia Current Visit: Yes Status: Acute Code(s): D69.6 - THROMBOCYTOPENIA, UNSPECIFIED SNOMED Code(s): 250256255 Comment: Worse in setting of sepsis Attention to level in setting of large AAA (6) UTI (urinary tract infection) Current Visit: Yes Status: Acute Comment: source of infection CTX as above Ecoli (7) COPD (chronic obstructive pulmonary disease) Current Visit: Yes Status: Chronic Code(s): J44.9 - CHRONIC OBSTRUCTIVE PULMONARY DISEASE, UNSPECIFIED SNOMED Code(s): 28743667 Comment: advair dulera (8) DVT prophylaxis Current Visit: Yes Status: Acute Code(s): VMS8799 - SNOMED Code(s): 115615291 Comment: SQ heparin (9) Dysphagia Current Visit: Yes Status: Acute Code(s): R13.10 - DYSPHAGIA, UNSPECIFIED SNOMED Code(s): 49599213 Comment: [place] thick liquids (10) Chronic right hip pain Current Visit: Yes Status: Acute Code(s): M25.551 - PAIN IN RIGHT HIP; G89.29 - OTHER CHRONIC PAIN SNOMED Code(s): 85847425 Comment: pt says chronic, has had delirium. Given report of syncope consider right hip xray but if truly chronic may be 2/2 PVD/Leriche's syndrome with high grade stenosis b/l common iliac arteries/aortic bifurcation. Status and Disposition: medicine inpatient. Lives at [facility] reportedly independent. PT ordered. Attending: Abdi Stephens
[2017-01-05] MEDS: Atorvastatin* 40 MG TAB PO SCH (21:58)
[2017-01-05] MEDS: Tamsulosin CAP* 0.4 MG PO SCH (22:08)
[2017-01-06 02:54] LABS: Urine Bacteria Absent (Absent); Urine Bilirubin Negative (Negative); Urine Glucose Negative (Negative); Urine Nitrite Negative (Negative)
[2017-01-06] MEDS: Acetaminophen TAB* 325 MG PO PRN (04:00)
[2017-01-06 07:12] LABS: Hematocrit 32 % (42-52); Mean Corpuscular HGB Conc 34 g/dl (31-36); Mean Corpuscular Hemoglobin 32 pg (27-31); Mean Corpuscular Volume 92 fL (80-94); Mean Platelet Volume 9 um3 (7.4-10.4); Red Cell Distribution Width 14 % (10.5-15); White Blood Count 6.5 10^3/ul (3.5-10.8)
[2017-01-06 07:13] LABS: Comments Flag Yes
[2017-01-06 07:14] LABS: Add Diff/Slide Review? Slide Review Added
--- NOTE | 2017-01-06 07:27 | RAD ---
INDICATION: Sepsis COMPARISON: Most recent comparison chest x-rays dated January 03, 2017 TECHNIQUE: Single AP portable view of the chest was obtained. FINDINGS: Image quality is compromised due to the relative inferiority of a portable chest x-ray. The heart and mediastinum exhibit normal size and contour. Again seen is mild calcified atherosclerosis overlying the arch of the aorta. There is infiltration of the bilateral lower lungs minimally obscuring the diaphragm and causing a mild degree costophrenic angle blunting. There is no focal lobar consolidation. Visualized bones are normal for the patient's age. IMPRESSION: Density at the bilateral lower lungs, more severely affecting the right lung base than the left, could represent pneumonia or infiltrate. There are probably small pleural effusions as well.
[2017-01-06 07:28] LABS: BUN/Creatinine Ratio 27.4 (8-20); EGFR African American 158.9 (>60); EGFR Non-African American 123.6 (>60); Potassium 3.5 mmol/L (3.5-5.0)
[2017-01-06] MEDS: Mometasone/Formoter 200/5 MDI INH SCH ×2 (09:17→19:59)
[2017-01-06] MEDS: Polyethylene Glycol 3350* 17 GM PACKET PO SCH ×2 (09:25→22:58)
[2017-01-06] MEDS: cefTRIAXone VIAL(*) 1,000 MG in NS 0.9% 50 ML* 50 ML IVPB SCH (09:32)
[2017-01-06] MEDS: Aspirin Low Dose CHEW TAB* 81 MG PO SCH (09:33)
[2017-01-06] MEDS: Ferrous Sulfate TAB* 325 MG PO SCH (09:33)
[2017-01-06] MEDS: Finasteride TAB* 5 MG PO SCH (09:33)
[2017-01-06] MEDS: Multivitamins/Minerals TAB PO SCH (09:33)
[2017-01-06] MEDS: Ascorbic Acid TAB* 500 MG PO SCH (09:33)
[2017-01-06] MEDS: Docusate CAP* 100 MG PO SCH (09:34)
[2017-01-06] MEDS: Tobramycin/Dexameth OPTH.SUSP* 2.5 M L BTL BOTH EYES SCH ×3 (09:51→22:55)
[2017-01-06] MEDS: Omeprazole CAP* 20 MG PO SCH (09:51)
[2017-01-06] MEDS: NUTRITIONAL SUPPLEMENTS PO SCH ×3 (16:15→22:58)
[2017-01-06] MEDS: Digoxin TAB* 0.125 MG PO SCH (18:02)
--- NOTE | 2017-01-06 22:13 | PN ---
Subjective Date of Service: 01/06/17 Interval History: Pt spiked fever 101 around midnight. CXR with R> L infiltrate. Denies cough or SOB. Very depressed and wanting to return to [facility] as missing his friend Yohana who has severe Alzheimer's. Worked with PT. Able to stand. some b/l hip pain. not in afib Objective Active Medications: Acetaminophen (Tylenol Tab*) 650 mg PO Q6H PRN PRN Reason: PAIN Last Admin: 01/06/17 04:00 Dose: 650 mg Albuterol (Ventolin 2.5 Mg/3 Ml Neb.Nancie*) 2.5 mg INH [id number] AWAKE PRN PRN Reason: sob/wheezing Albuterol/Ipratropium (Duoneb (Albuterol 2.5 Mg/Ipratropium 0.5 Mg)) 1 neb INH Q4H PRN PRN Reason: SOB/WHEEZING Last Admin: 01/05/17 08:26 Dose: 1 neb Ascorbic Acid (Vitamin C Tab*) 500 mg PO DAILY [facility] Last Admin: 01/06/17 09:33 Dose: 500 mg Aspirin (Aspirin Low Dose Tab*) 81 mg PO DAILY [facility] Last Admin: 01/06/17 09:33 Dose: 81 mg Atorvastatin Calcium (Lipitor*) 40 mg PO BEDTIME [facility] Last Admin: 01/05/17 21:58 Dose: 40 mg Digoxin (Lanoxin Tab*) 0.125 mg PO DAILY@1700 [facility] Last Admin: 01/06/17 18:02 Dose: 0.125 mg Docusate Sodium (Colace Cap*) 100 mg PO DAILY [facility] Last Admin: 01/06/17 09:34 Dose: 100 mg Ferrous Sulfate (Ferrous Sulfate Tab*) 325 mg PO DAILY [facility] Last Admin: 01/06/17 09:33 Dose: 325 mg Finasteride (Proscar Tab*) 5 mg PO DAILY [facility] Last Admin: 01/06/17 09:33 Dose: 5 mg Ceftriaxone Sodium 1,000 mg/ (Sodium Chloride) 50 mls @ 200 mls/hr IVPB Q24H [facility] Last Admin: 01/06/17 09:32 Dose: 200 mls/hr Metoprolol Tartrate (Lopressor Iv*) 5 mg IV Q5M PRN PRN Reason: TACHYCARDIA Last Admin: 01/05/17 10:05 Dose: 5 mg Mometasone Furoate/Formoterol Fumar (Dulera 200/5 Mdi*) 2 puff INH BID [facility] Last Admin: 01/06/17 19:59 Dose: 2 puff Multivitamins/Minerals (Theragran/Minerals Tab*) 1 tab PO DAILY [facility] Last Admin: 01/06/17 09:33 Dose: 1 tab Nutritional Supplements [Ensure] 1 Can 1 can PO TID [facility] Last Admin: 01/06/17 18:03 Dose: Not Given Omeprazole (Prilosec Cap*) 20 mg PO DAILY@0730 [facility] PRN Reason: Protocol Last Admin: 01/06/17 09:51 Dose: 20 mg Ondansetron HCl (Zofran Inj*) 4 mg IV Q4H PRN PRN Reason: NAUSEA/VOMITING Last Admin: 01/05/17 21:58 Dose: 4 mg Polyethylene Glycol/Electrolytes (Miralax*) 17 gm PO BID [facility] Last Admin: 01/06/17 09:25 Dose: Not Given Tamsulosin HCl (Flomax Cap*) 0.4 mg PO BEDTIME [facility] Last Admin: 01/05/17 22:08 Dose: 0.4 mg Tobramycin/Dexamethasone (Tobradex 0.3-0.1%*) 1 drop BOTH EYES TID [facility] Last Admin: 01/06/17 15:34 Dose: 1 drop Vital Signs 01/05/17 01/05/17 01/06/17 23:41 23:42 04:04 Temperature 101 F 99.0 F Pulse Rate 85 91 Respiratory 16 20 Rate Blood Pressure 129/73 137/73 (mmHg) O2 Sat by Pulse 96 95 Oximetry 01/06/17 01/06/17 01/06/17 07:55 08:00 15:18 Temperature 98.3 F 98.8 F Pulse Rate 91 87 Respiratory 17 18 18 Rate Blood Pressure 142/79 137/62 (mmHg) O2 Sat by Pulse 97 98 98 Oximetry 01/06/17 01/06/17 18:02 19:14 Temperature 97.7 F Pulse Rate 72 78 Respiratory 20 Rate Blood Pressure 135/69 (mmHg) O2 Sat by Pulse 96 Oximetry Oxygen Devices in Use Now: None Appearance: Depressed, tearful. Eyes: - - opaque right eye; b/l blindness Ears/Nose/Mouth/Throat: NL Teeth, Lips, Gums, Mucous Membranes Moist Neck: NL Appearance and Movements; NL JVP Respiratory: Symmetrical Chest Expansion and Respiratory Effort, - - decreased at bases. no rales or wheezing Abdominal: NL Sounds; No Tenderness; No Distention Extremities: No Edema Skin: No Rash or Ulcers Neurological: Alert and Oriented x 3, NL Muscle Strength and Tone Result Diagrams: 01/06/17 06:57 01/06/17 06:57 Additional Lab and Data: Laboratory Results - last 24 hr 01/06/17 01/06/17 01/06/17 02:10 06:57 06:57 WBC 6.5 RBC 3.50 L Hgb 11.0 L Hct 32 L MCV 92 MCH 32 H MCHC 34 RDW 14 Plt Count 56 L MPV 9 Neut % (Auto) 80.3 Lymph % (Auto) 10.4 L Anson % (Auto) 7.8 Eos % (Auto) 1.1 Baso % (Auto) 0.4 Absolute Neuts (auto) 5.3 Absolute Lymphs (auto) 0.7 L Absolute Monos (auto) 0.5 Absolute Eos (auto) 0.1 Absolute Basos (auto) 0 Absolute Nucleated RBC 0.01 Nucleated RBC % 0.1 Sodium 134 Potassium 3.5 Chloride 108 Carbon Dioxide 24 Anion Gap 2 BUN 17 Creatinine 0.62 L Est GFR ( Amer) 158.9 Est GFR (Non-Af Amer) 123.6 BUN/Creatinine Ratio 27.4 H Glucose 116 H Calcium 8.0 L Magnesium 2.0 Urine Color Yellow Urine Appearance Clear Urine pH 7.0 Ur Specific [place] 1.017 Urine Protein 1+(30 mg/dl) H Urine Ketones Negative Urine Blood Negative Urine Nitrate Negative Urine Bilirubin Negative Urine Urobilinogen Negative Ur Leukocyte Esterase Negative Urine WBC (Auto) Trace(0-5/hpf) Urine RBC (Auto) 3+(>10/hpf) H Urine Bacteria Absent Urine Glucose Negative Urine Ascorbic Acid * H Microbiology and Other Data: Microbiology 12/31/16 16:56 Blood Venous Aerobic Blood Culture - Final Escherichia Coli 12/31/16 16:56 Blood Venous Anaerobic Blood Culture - Final Escherichia Coli 12/31/16 16:56 Blood Venous Aerobic Blood Culture - Final Escherichia Coli 12/31/16 16:56 Blood Venous Anaerobic Blood Culture - Final Escherichia Coli 12/31/16 18:50 Nasal Nasal Screen MRSA (PCR)(EARL) - Final Mrsa Positive Assess/Plan/Problems-Billing Assessment: 86 M PMH blindness, COPD, HTN, BPH, Afib (on digoxin), large AAA p/w syncope, severe sepsis 2/2 Ecoli bacteremia. AAA bigger now 8.1x7.4cm. Right hip pain chronic (?claudication/?Leriche's syndrome). Thrombocytopenic. Spiked new fever. - Patient Problems (1) Severe sepsis Current Visit: Yes Status: Acute Code(s): A41.9 - SEPSIS, UNSPECIFIED ORGANISM; R65.20 - SEVERE SEPSIS WITHOUT SEPTIC SHOCK SNOMED Code(s): 30910304 Comment: E. coli in urine and blood spiked new fever overnight. CXR with potential infilatrate R>L. Recent CT chest 12/24 with dependant pleural effusions and atelectasis. Denies cough or SOB. Was MRSA nares positive on admission. Have added sputum culture. Continue CFTX for now. Encephalopathy on presentation secondary to sepsis - now resolved Continue CFTX based on sensitivities. Day [address] did not identify abscess or other etiology for elevated wbc. Leukocytosis starting to improve today. (2) Paroxysmal atrial fibrillation Current Visit: Yes Status: Chronic Code(s): I48.0 - PAROXYSMAL ATRIAL FIBRILLATION SNOMED Code(s): 997932514 Comment: went into RVR 01/05. Improved with 500cc NS and lopressor 5mg. replete K>4, Mg>2. Not on chronic anticoagulation Continue digoxin 0.125mg daily- level 0.8 (3) Abdominal aortic aneurysm (AAA) Current Visit: Yes Status: Acute Code(s): I71.4 - ABDOMINAL AORTIC ANEURYSM , WITHOUT RUPTURE SNOMED Code(s): 556214308 Comment: 8.1cm in largest diameter increased from 2013 (6.6cm) Dr. Paul spoke with Genesis Rivera. She is unsure if he would want an intervention (he did not in the past). f/u w/ vascular surgery for follow up. s/ p faxed facesheet, H&P, and CT report to [facility] vascular service who also sees patients in [place] on Fridays. They indicated they will call pt with an appointment. (4) Demand ischemia Current Visit: Yes Status: Acute Code(s): I24.8 - OTHER FORMS OF ACUTE ISCHEMIC HEART DISEASE SNOMED Code(s): 605213692 Comment: Chest pain free Suspect in setting of tachycradia then hypotension after receiving cardizem TTE without RWMA (5) Thrombocytopenia Current Visit: Yes Status: Acute Code(s): D69.6 - THROMBOCYTOPENIA, UNSPECIFIED SNOMED Code(s): 415472815 Comment: slightly improving in setting of sepsis Attention to level in setting of large AAA (6) UTI (urinary tract infection) Current Visit: Yes Status: Acute Comment: source of infection CTX as above Ecoli (7) COPD (chronic obstructive pulmonary disease) Current Visit: Yes Status: Chronic Code(s): J44.9 - CHRONIC OBSTRUCTIVE PULMONARY DISEASE, UNSPECIFIED SNOMED Code(s): 10025104 Comment: momo almendarezera (8) DVT prophylaxis Current Visit: Yes Status: Acute Code(s): ZYD8122 - SNOMED Code(s): 783279906 Comment: SQ heparin (9) Dysphagia Current Visit: Yes Status: Acute Code(s): R13.10 - DYSPHAGIA, UNSPECIFIED SNOMED Code(s): 75595281 Comment: [place] thick liquids. hope to advance soon as is source extreme distress to patient. (10) Chronic right hip pain Current Visit: Yes Status: Acute Code(s): M25.551 - PAIN IN RIGHT HIP; G89.29 - OTHER CHRONIC PAIN SNOMED Code(s): 01183536 Comment: pt says chronic, has had delirium. Given report of syncope consider right hip xray but if truly chronic may be 2/2 PVD/Leriche's syndrome with high grade stenosis b/l common iliac arteries/aortic bifurcation. Was able to ambulate today with physical therapy. Status and Disposition: medicine inpatient. Planned return to [facility]. Attending: Abdi Stephens
[2017-01-06] MEDS: Atorvastatin* 40 MG TAB PO SCH (22:53)
[2017-01-06] MEDS: Tamsulosin CAP* 0.4 MG PO SCH (22:53)
[2017-01-07] MEDS: Omeprazole CAP* 20 MG PO SCH (06:15)
[2017-01-07 07:54] VITALS: BP 141/84
[2017-01-07] MEDS: Mometasone/Formoter 200/5 MDI INH SCH ×2 (09:22→21:21)
[2017-01-07] MEDS: cefTRIAXone VIAL(*) 1,000 MG in NS 0.9% 50 ML* 50 ML IVPB SCH ×2 (09:50→12:06)
[2017-01-07] MEDS: Multivitamins/Minerals TAB PO SCH (09:50)
[2017-01-07] MEDS: Ferrous Sulfate TAB* 325 MG PO SCH (09:51)
[2017-01-07] MEDS: Aspirin Low Dose CHEW TAB* 81 MG PO SCH (09:51)
[2017-01-07] MEDS: Docusate CAP* 100 MG PO SCH (09:51)
[2017-01-07] MEDS: Tobramycin/Dexameth OPTH.SUSP* 2.5 M L BTL BOTH EYES SCH ×2 (09:51→14:07)
[2017-01-07] MEDS: Ascorbic Acid TAB* 500 MG PO SCH (09:51)
[2017-01-07] MEDS: Finasteride TAB* 5 MG PO SCH (09:51)
[2017-01-07] MEDS: NUTRITIONAL SUPPLEMENTS PO SCH ×2 (09:52→14:06)
[2017-01-07] MEDS: Polyethylene Glycol 3350* 17 GM PACKET PO SCH (09:52)
[2017-01-07 11:32] LABS: Add Diff/Slide Review? Slide Review Added; Comments Flag Yes; Hematocrit 35 % (42-52); Hemoglobin 12.2 g/dl (14.0-18.0); Mean Corpuscular HGB Conc 35 g/dl (31-36); Mean Corpuscular Hemoglobin 31 pg (27-31); Mean Corpuscular Volume 91 fL (80-94); Mean Platelet Volume 9 um3 (7.4-10.4); Red Blood Count 3.89 10^6/ul (4.0-5.4); Red Cell Distribution Width 14 % (10.5-15); White Blood Count 7.5 10^3/ul (3.5-10.8)
[2017-01-07] MEDS ORDERED: Amoxicillin/Clavulanate TAB* 875 MG PO ONE (12:05)
[2017-01-07 12:11] LABS: Calcium 8.1 mg/dL (8.6-10.3); EGFR African American 171.7 (>60); EGFR Non-African American 133.5 (>60); Magnesium 2.1 mg/dL (1.9-2.7); Potassium 3.3 mmol/L (3.5-5.0)
[2017-01-07] MEDS: Digoxin TAB* 0.125 MG PO SCH (17:04)
--- NOTE | 2017-01-08 08:02 | DS ---
DISCHARGE SUMMARY: DATE OF ADMISSION: 12/31/16 DATE OF DISCHARGE: 01/07/17 ADMITTING PROVIDER: Yoel Paul MD. ATTENDING PHYSICIANS: Abdi Stephens MD and Yoel Paul MD. CHIEF COMPLAINT: Fevers, nausea, vomiting, diarrhea, syncope. PRINCIPAL DIAGNOSES: Sepsis secondary to Escherichia coli urinary tract infection and bacteremia; worsening abdominal aortic aneurysm size; paroxysmal atrial fibrillation with rapid ventricular rate. PAST MEDICAL HISTORY: Bilateral blindness, hypertension, hyperlipidemia, GERD, COPD, AAA, BPH, paroxysmal AFib on no anticoagulation, history of NSTEMI. HISTORY OF PRESENT ILLNESS AND HOSPITAL COURSE: Guanako Hare is an 86-year- old male, PMH as above, resident of [facility] and able to be ambulate by wall walking despite his bilateral blindness, who had episodes of syncope on the morning of admission. He reported he "did not feel well," felt sick before he started developing large volume emesis as well as diarrhea. On presentation, he was tachycardic to 160 beats per minute, temperature of 102.9, in AFib. He was started on empiric antibiotics with ceftriaxone given suspected urinary tract infection history. His initial EKGs had ST depressions of V3 through V5 to 3 and aVF. His initially lactic acid was 3.7, peaked at 3.8. Troponins peaked at 1.75. Initially white count was 4.9, but jumped to 23.6. His lactic acid was 6.3 on presentation and was gently volume resuscitated given history of diastolic CHF. His blood cultures drawn on , grew E. coli 4/4 bottles. It was resistant to fluoroquinolones, but otherwise sensitive, ceftriaxone was continued. He was initially delirious, slowly improved in mentation. The last 2 days of hospitalization were actually quite depressed affect missing [facility] and his friend, Yohana and very depressed about the dysphagia diet he had been put on given signs and symptoms of aspiration with Speech Language Pathology, who had been recommending pureed diet, nectar thick liquids with spoon, which he complains does not agree with his stomach. The patient had a transthoracic echocardiogram on 01/03/17, given his elevated troponins showed ejection fraction of 55% to 60% and normal diastolic filling in the left ventricle, mild tricuspid regurgitation, and aortic valve leaflets were mildly thickened. The patient had a CT of the chest, abdomen and pelvis on 01/03/17, which showed a large fusiform aneurysm of the infrarenal abdominal aorta measuring 7.4 x 8.1 cm compared to 6.3 x 6.6 cm of 2013. He also demonstrated high-grade stenosis in the aortic bifurcation/bilateral proximal common iliac arteries, potentially worrisome for Leriche's syndrome. The patient did attest to some chronic right hip pain. He had diffuse mural thickening of the stomach , which may represent gastritis versus potentially infiltrative tumor, no perinephric abscess or obstructive uropathy was seen. He had small volume of ascites and some dependent pleural effusions bilaterally that were moderate in size and partial atelectasis of the lower lobes. The patient will need to followup with Vascular Surgery or at least discuss with primary care physician the increasing size of his AAA. The patient will need to continue Augmentin twice a day for a total course of 14 days and is at risk for aspiration events if his diet is changed, though he may decide to have this in alignment with his goals of care. Of note, he initially had been started on cefepime actually instead of ceftriaxone. He had a episode of AFib with RVR that was corrected with 500 cc bolus and 5 of Lopressor on 01/05/17, and his digoxin level improved through admission to 0.8 from 0.5 and was continued on discharge. Of note, he was MRSA in naris positive on admission. DISCHARGE MEDICATIONS: Include: 1. Augmentin 875 mg tablet p.o. b.i.d. 2. Ascorbic acid 500 mg p.o. daily. 3. Aspirin 81 mg daily. 4. Atorvastatin 40 mg p.o. q.h.s. 5. Digoxin 0.125 mg p.o. daily. 6. Docusate 100 mg p.o. daily. 7. Nexium 20 mg p.o. daily. 8. Ferrous sulfate 325 mg p.o. daily. 9. Finasteride 5 mg p.o. daily. 10. Advair 1 puff inhaled b.i.d. 11. Multivitamin tab 1 tab p.o. daily. 12. Ensure 1 can p.o. t.i.d. 13. MiraLax 17 g p.o. b.i.d. 14. Tamsulosin 0.4 mg p.o. q.h.s. 15. Tobramycin/dexamethasone ophthalmic suspension 0.3% to 0.1% one drop t.i.d. 16. Maalox Plus 30 mL q.4 hours. 17. Combivent Respimat q.4 hours p.r.n. 18. Amlodipine 5 mg p.o. daily. 19. Tylenol p.o. q.h.s. 20. Hydrocortisone cream 1% p.r.n. 21. Meloxicam 50 mg p.o. daily. 22. Zantac 150 mg p.o. b.i.d. DISCHARGE DIET: Pureed diet, nectar thick liquids with spoon, advance as tolerated if without signs of aspiration per outpatient speech and language pathology evaluation. ACTIVITY LEVEL: Ambulates by grabbing on cruz at baseline. FOLLOWUP: Please follow up with Campbell Mata, his primary care provider next week and Vascular Surgery, Dr. Paul. Fax the patient's H and P and CT report to [facility] Vascular Service, who sees patients in [place] on Fridays, their phone number is [phone]. They indicated that they would call the patient to schedule an appointment. TIME SPENT: On discharge, 45 minutes. [id number]/CPS #: [id number] CHRISTIAN
== END 2017-01-07 17:15 | disposition home or self-care (01) | DRG 871 ==
LOC: ED 15:28 → ICU 16:38 → MED 01-04 14:24
PROVIDERS: ADMIT Internal Medicine; ATTEND Internal Medicine
PROC: 0T9B70Z Drainage of Bladder with Drainage Device, Via Natural or Artificial Opening (ICD-10-PCS; principal; 2016-12-31)
DX: A41.51 Sepsis due to Escherichia coli [E. coli] (principal); G93.41 Metabolic encephalopathy; R18.8 Other ascites; D69.59 Other secondary thrombocytopenia; F05 Delirium due to known physiological condition; I07.1 Rheumatic tricuspid insufficiency; I50.32 Chronic diastolic (congestive) heart failure; I11.0 Hypertensive heart disease with heart failure; I24.8 Other forms of acute ischemic heart disease; N39.0 Urinary tract infection, site not specified; R65.20 Severe sepsis without septic shock; R13.10 Dysphagia, unspecified; I48.0 Paroxysmal atrial fibrillation; J44.9 Chronic obstructive pulmonary disease, unspecified; K21.9 Gastro-esophageal reflux disease without esophagitis; N40.0 Benign prostatic hyperplasia without lower urinary tract symptoms; M81.0 Age-related osteoporosis without current pathological fracture; H54.8 Legal blindness, as defined in USA; Z66 Do not resuscitate; E78.5 Hyperlipidemia, unspecified; I71.4 Abdominal aortic aneurysm, without rupture; H91.90 Unspecified hearing loss, unspecified ear; F17.210 Nicotine dependence, cigarettes, uncomplicated; B96.20 Unspecified Escherichia coli [E. coli] as the cause of diseases classified elsewhere; K29.70 Gastritis, unspecified, without bleeding; M25.551 Pain in right hip; G89.29 Other chronic pain; B95.62 Methicillin resistant Staphylococcus aureus infection as the cause of diseases classified elsewhere; Z79.82 Long term (current) use of aspirin; I25.2 Old myocardial infarction; Z88.1 Allergy status to other antibiotic agents; Z82.49 Family history of ischemic heart disease and other diseases of the circulatory system; Z88.2 Allergy status to sulfonamides; Z23 Encounter for immunization
CPT/HCPCS: 36415; 71010; 71260; 74177; 80048; 80053; 80162; 81003; 81015; 83605; 83735; 83880; 84443; 84484; 85025; 85027; 85060; 85610; 87040; 87077; 87086; 87186; 87205; 87641; 90686; 93005; 93306; 94640; 94760; 96374; 99284; A9270-GY; G8996-GN-CK; G8997-GN-CJ; J0692; J0696; J0744; J1644; J2060; J2405; J3480; Q9967

== ENCOUNTER 2017-01-28 17:39 | Emergency (ER) | payer MEDICARE, MEDICAID ==
--- NOTE | 2017-01-28 19:44 | RAD ---
INDICATION: RIGHT wrist pain post fall. COMPARISON: None. TECHNIQUE: AP, lateral, and oblique views RIGHT wrist. REPORT: Bone density appears decreased throughout. Negative for acute fracture or malalignment. Small accessory ossicle or ununited old fracture fragment at the ulnar styloid. Advanced scaphoid trapezium trapezoid joint space narrowing with associated mild subchondral sclerosis. Less prominent degenerative arthropathy at the basal joint of the thumb and generalized polyarticular osteoarthritis.. Mild nonfocal soft tissue swelling. IMPRESSION: Negative for fracture.
--- NOTE | 2017-01-28 19:46 | RAD ---
INDICATION: Pain post fall. COMPARISON: No relevant prior exams available on the [facility] [place]. TECHNIQUE: AP, lateral, and oblique views LEFT wrist. REPORT: Bone density appears decreased throughout. Negative for fracture or malalignment. Advanced arthropathy at the scaphoid trapezium trapezoid articulation with complete joint space loss with associated subchondral sclerosis and cystic change. Less prominent degenerative arthropathy at the basal joint of the thumb. Mild nonfocal soft tissue swelling. IMPRESSION: Negative for fracture.
--- NOTE | 2017-01-28 19:51 | RAD ---
Indication: RIGHT shoulder pain post fall. Comparison: No relevant prior exams available on the [facility] [place] for comparison. Technique: Internal rotation AP, external rotation Grashey, scapular Y, axillary views RIGHT shoulder Report: Bone density appears decreased throughout. No fracture evident. Normal acromioclavicular and glenohumeral joint alignment. Unremarkable soft tissue contours. IMPRESSION: No traumatic injury of the RIGHT shoulder evident.
--- NOTE | 2017-01-28 19:53 | RAD ---
Indication: LEFT shoulder pain post fall. Comparison: No relevant prior exams available on the [facility] PACS for comparison. Technique: Internal rotation AP, external rotation Grashey, scapular Y, axillary views LEFT shoulder Report: Bone density appears decreased throughout. Negative for fracture. Normal acromioclavicular and glenohumeral joint alignment. Mild glenohumeral joint space narrowing. Unremarkable soft tissue contours. IMPRESSION: No evidence for traumatic LEFT shoulder injury.
[2017-01-28 21:06] VITALS: BP 129/77
--- NOTE | 2017-01-28 23:48 | ED ---
Jeannie Dacosta Jason, scribed for Eliseo Vaughan MD on 01/28/17 at 1850 . Upper Extremity Pain - HPI Summary HPI Summary: This patient is a 86 year old M BIBA to [facility] with a chief complaint of RUE pain since 175 today. The patient states he fell from a standing position on his way to urinate and experienced injury with pain to the head, and right and left shoulder, arm, and wrist. The patient rates the pain 8/10 in severity. Symptoms aggravated by nothing. Symptoms alleviated by nothing. - History of Current Complaint Chief Complaint: EDExtremityUpper Stated Complaint: FALL Time Seen by Provider: 01/28/17 18:20 Hx Obtained From: Patient Mechanism Of Injury: Fall From A Standing Position Onset/Duration: Started Hours Ago - since 17:51, Still Present Timing: Constant Pain Location: Shoulder - bilateral, Arm - bilateral, Wrist - bilateral, Other: - forehead Aggravating Factor(s): Nothing Alleviating Factor(s): Nothing Associated Signs & Symptoms: Positive: Other - LUE AND RUE PAIN - Allergies/Home Medications Allergies/Adverse Reactions: Allergies Allergy/AdvReac Type Severity Reaction Status Date / Time Erythromycin Allergy Unknown Unknown Verified 04/16/16 07:39 Reaction Details Sulfa Drugs Allergy Unknown Unknown Verified 04/16/16 07:39 Reaction Details Azithromycin Allergy Unknown Verified 04/16/16 07:39 Reaction Details PMH/Surg Hx/FS Hx/Imm Hx Previously Healthy: No Endocrine/Hematology History: Denies: Hx Anticoagulant Therapy, Hx Diabetes, Hx Thyroid Disease, Other Endocrine/Hematological Disorders Cardiovascular History: Reports: Hx Aneurysm, Hx Coronary Artery Disease, Hx Hypertension Denies: Hx Pacemaker/ICD, Hx Peripheral Vascular Disease, Other Cardiovascular Problems/Disorders Respiratory History: Reports: Hx Chronic Bronchitis, Hx Chronic Obstructive Pulmonary Disease (COPD) Denies: Hx Asthma, Other Respiratory Problems/Disorders GI History: Reports: Hx Gastroesophageal Reflux Disease Denies: Other GI Disorders History: Reports: Hx Benign Prostatic Hyperplasia - Takes Flomax Denies: Hx Renal Disease, Other Problems/Disorders Musculoskeletal History: Denies: Hx Arthritis, Hx Osteoporosis, Other Musculoskeletal History Sensory History: Reports: Hx Cataracts, Hx Legally Blind, Hx Vision Problem, Hx Hearing Problem Denies: Hx Contacts or Glasses, Hx Hearing Aid, Other Sensory Impairments Opthamlomology History: Reports: Hx Cataracts, Hx Legally Blind, Hx Vision Problem Denies: Hx Contacts or Glasses, Other Sensory Impairments Neurological History: Denies: Hx Dementia, Hx Headaches, Hx Seizures, Hx Transient Ischemic Attacks (TIA), Other Neuro Impairments/Disorders Psychiatric History: Denies: Hx Substance Abuse, Other Psychiatric Issues/Disorders Infectious Disease History: No Infectious Disease History: Denies: Hx Clostridium Difficile, Hx Hepatitis, Hx Human Immunodeficiency Virus (HIV), Traveled Outside the [place] in Last 30 Days - Family History Known Family History: Positive: Hypertension - mother Negative: Blood Disorder - Social History Occupation: Retired Alcohol Use: None Hx Substance Use: No Substance Use Type: Reports: None Hx Tobacco Use: Yes Smoking Status (MU): Former Smoker Type: Pipe Have You Smoked in the Last Year: Yes Review of Systems Negative: Fever Positive: Other - Injury and pain to the LUE and RUE All Other Systems Reviewed And Are Negative: Yes Physical Exam - Summary Physical Exam Summary: Appearance: The patient is well-nourished in no acute distress and in no acute pain. Skin: The skin is warm and dry and skin color reflects adequate perfusion. HEENT: ~The head is normocephalic and atraumatic. The pupils are equal and reactive. The conjunctivae are clear and without drainage. ~Nares are patent and without drainage. ~Mouth reveals moist mucous membranes and the throat is without erythema and exudate. ~The external ears are intact. The ear canals are patent and without drainage. The tympanic membranes are intact. Neck: the neck is supple with full range of motion and non-tender. There are no carotid bruits. ~There is no neck vein distension. Respiratory: Chest is non-tender. ~Lungs are clear to auscultation and breath sounds are symmetrical and equal. Cardiovascular: Heart is regular rate and rhythm. ~There is no murmur or rub auscultated. ~~There is no peripheral edema and pulses are symmetrical and equal. Abdomen: The abdomen is soft and non-tender. ~There are normal bowel sounds heard in all four quadrants and there is no organomegaly palpated. Musculoskeletal: There is no back tenderness noted. ~There is good capillary refill. ~There is no peripheral edema or calf tenderness elicited. Tenderness in proximal humeral area bilaterally in the wrists, no deformities noted. Neurological: Patient is alert and oriented to person, place and time. ~The patient has symmetrical motor strength in all four extremities. ~Cranial nerves are grossly intact. Deep tendon reflexes are symmetrical and equal in all four extremities. Psychiatric: The patient has an appropriate affect and does not exhibit any anxiety or depression. Triage Information Reviewed: Yes Vital Signs On Initial Exam: Initial Vitals Temp Pulse Resp BP Pulse Ox 98.2 F 74 16 144/81 99 01/28/17 17:40 01/28/17 17:40 01/28/17 17:40 01/28/17 17:40 01/28/17 17:40 Vital Signs Reviewed: Yes - [place] Coma Scale Coma Scale Total: 15 Diagnostics - Vital Signs Vital Signs Temp Pulse Resp BP Pulse Ox 01/28/17 17:40 98.2 F 74 16 144/81 99 - Laboratory Lab Statement: Any lab studies that have been ordered have been reviewed, and results considered in the medical decision making process. - Radiology Left wrist x-ray Radiology Interpretation Completed By: Radiologist - Negative for fracture. ED physician has reviewed this radiology report and agrees. Right wrist x-ray Radiology Interpretation Completed By: Radiologist - Negative for fracture. ED physician has reviewed this radiology report and agrees. Right Shoulder x-ray Radiology Interpretation Completed By: Radiologist - No traumatic injury of the RIGHT shoulder evident. ED physician has reviewed this radiology report and agrees. left shoulder x-ray Radiology Interpretation Completed By: Radiologist - No evidence for traumatic LEFT shoulder injury. Course/Dx - Course Course Of Treatment: Mr. Hare had a mechanical fall today and hurt both of his wrists and shoulders. His x-rays were negative and he felt that he could go home and would be able to take care of himself. - Diagnoses Provider Diagnoses: Wrist contusion, Shoulder contusion Discharge - Discharge Plan Condition: Fair Disposition: HOME Patient Education Materials: Contusion in Adults (ED) Referrals: Session Campbell WHEELER [Primary Care Provider] - Additional Instructions: RETURN TO THE EMERGENCY DEPARTMENT FOR CHANGING OR WORSENING SYMPTOMS. The documentation as recorded by the Jeannie bonilla Jason accurately reflects the service I personally performed and the decisions made by , Eliseo Vaughan MD.
== END 2017-01-28 22:59 | disposition home or self-care (01) ==
LOC: ED 17:39
DX: S60.211A Contusion of right wrist, initial encounter (principal); S40.012A Contusion of left shoulder, initial encounter; W19.XXXA Unspecified fall, initial encounter; Y93.9 Activity, unspecified; Y92.9 Unspecified place or not applicable; Z87.891 Personal history of nicotine dependence
CPT/HCPCS: 99282

== ENCOUNTER 2017-02-10 02:43 | Emergency (ER) | payer MEDICARE, MEDICAID ==
[2017-02-10] MEDS ORDERED: NS 0.9% 1000 ML* 1,000 ML IV ONE (03:03)
[2017-02-10 03:44] LABS: Hematocrit 41 % (42-52); Hemoglobin 13.6 g/dl (14.0-18.0); Mean Corpuscular HGB Conc 34 g/dl (31-36); Mean Corpuscular Hemoglobin 32 pg (27-31); Mean Corpuscular Volume 94 fL (80-94); Mean Platelet Volume 8 um3 (7.4-10.4); Red Blood Count 4.32 10^6/ul (4.0-5.4); Red Cell Distribution Width 15 % (10.5-15)
[2017-02-10 03:47] LABS: Urine Bacteria 2+ (Absent); Urine Bilirubin Negative (Negative); Urine Glucose Negative (Negative); Urine Nitrite Negative (Negative)
[2017-02-10 03:55] LABS: Albumin 3.8 g/dL (3.2-5.2); BUN/Creatinine Ratio 23.2 (8-20); Calcium 9.6 mg/dL (8.6-10.3); EGFR African American 115.1 (>60); EGFR Non-African American 89.5 (>60); Globulin 3.1 g/dL (2-4); Potassium 3.8 mmol/L (3.5-5.0); Total Protein 6.9 g/dL (6.4-8.9)
[2017-02-10 04:01] LABS: Troponin I 0.04 ng/mL (<0.04)
[2017-02-10] MEDS ORDERED: Levofloxacin TAB* 500 MG PO ONE (04:11)
--- NOTE | 2017-02-10 05:21 | ED ---
Maynor Dacosta Tiffany, scribed for Jamal Keller on 02/10/17 at 0322 . Complex/Multi-Sys Presentation - HPI Summary HPI Summary: This patient is an 86 year old M BIBA to [facility] with a chief complaint of diarrhea since six hours ago. The patient reports he had five rounds of diarrhea. Symptoms aggravated by nothing. Symptoms alleviated by nothing. Patient reports frequent urination, abdominal pain, ear ache and weakness. - History Of Current Complaint Chief Complaint: EDGeneral Time Seen by Provider: 02/10/17 02:57 Hx Obtained From: Patient Onset/Duration: Lasting Hours - Six hours, Still Present Aggravating Factor(s): Nothing Alleviating Factor(s): Nothing Associated Signs And Symptoms: Positive: Other - frequent urination, abdominal pain, ear ache and weakness - Allergies/Home Medications Allergies/Adverse Reactions: Allergies Allergy/AdvReac Type Severity Reaction Status Date / Time Erythromycin Allergy Unknown Unknown Verified 04/16/16 07:39 Reaction Details Sulfa Drugs Allergy Unknown Unknown Verified 04/16/16 07:39 Reaction Details Azithromycin Allergy Unknown Verified 04/16/16 07:39 Reaction Details PMH/Surg Hx/FS Hx/Imm Hx Previously Healthy: No Endocrine/Hematology History: Denies: Hx Anticoagulant Therapy, Hx Diabetes, Hx Thyroid Disease, Other Endocrine/Hematological Disorders Cardiovascular History: Reports: Hx Aneurysm, Hx Coronary Artery Disease, Hx Hypertension Denies: Hx Pacemaker/ICD, Hx Peripheral Vascular Disease, Other Cardiovascular Problems/Disorders Respiratory History: Reports: Hx Chronic Bronchitis, Hx Chronic Obstructive Pulmonary Disease (COPD) Denies: Hx Asthma, Other Respiratory Problems/Disorders GI History: Reports: Hx Gastroesophageal Reflux Disease Denies: Other GI Disorders History: Reports: Hx Benign Prostatic Hyperplasia - Takes Flomax Denies: Hx Renal Disease, Other Problems/Disorders Musculoskeletal History: Denies: Hx Arthritis, Hx Osteoporosis, Other Musculoskeletal History Sensory History: Reports: Hx Cataracts, Hx Legally Blind, Hx Vision Problem, Hx Hearing Problem Denies: Hx Contacts or Glasses, Hx Hearing Aid, Other Sensory Impairments Opthamlomology History: Reports: Hx Cataracts, Hx Legally Blind, Hx Vision Problem Denies: Hx Contacts or Glasses, Other Sensory Impairments Neurological History: Denies: Hx Dementia, Hx Headaches, Hx Seizures, Hx Transient Ischemic Attacks (TIA), Other Neuro Impairments/Disorders Psychiatric History: Denies: Hx Substance Abuse, Other Psychiatric Issues/Disorders Infectious Disease History: No Infectious Disease History: Denies: Hx Clostridium Difficile, Hx Hepatitis, Hx Human Immunodeficiency Virus (HIV), Traveled Outside the [place] in Last 30 Days - Family History Known Family History: Positive: Hypertension - mother Negative: Blood Disorder - Social History [facility]: [facility] Alcohol Use: None Hx Substance Use: No Substance Use Type: Reports: None Hx Tobacco Use: Yes Smoking Status (MU): Former Smoker Type: Pipe Have You Smoked in the Last Year: Yes Review of Systems Positive: Ear Ache Positive: Abdominal Pain, Diarrhea Positive: frequency - Frequent urination Positive: Weakness All Other Systems Reviewed And Are Negative: Yes Physical Exam - Summary Physical Exam Summary: Appearance: Well appearing, no pain distress Skin: warm, dry, reflects adequate perfusion Head/face: normal Eyes: EOMI, ENT: Dry mucous membranes Neck: supple, non-tender Respiratory: CTA, breath sounds present Cardiovascular: RRR, pulses symmetrical Abdomen: non-tender, soft Bowel: present Musculoskeletal: normal, strength/ROM intact Neuro: normal, Triage Information Reviewed: Yes Vital Signs On Initial Exam: Initial Vitals Temp Pulse Resp BP Pulse Ox 97.9 F 90 24 134/95 100 02/10/17 02:45 02/10/17 02:45 02/10/17 02:45 02/10/17 02:45 02/10/17 02:45 Vital Signs Reviewed: Yes Diagnostics - Vital Signs Vital Signs Temp Pulse Resp BP Pulse Ox 02/10/17 02:45 97.9 F 90 24 134/95 100 - Laboratory Lab Results: Lab Results 02/10/17 02/10/17 02/10/17 Range/Units 03:25 03:25 03:25 WBC 11.0 H (3.5-10.8) 10^3/ul RBC 4.32 (4.0-5.4) 10^6/ul Hgb 13.6 L (14.0-18.0) g/dl Hct 41 L (42-52) % MCV 94 (80-94) fL MCH 32 H (27-31) pg MCHC 34 (31-36) g/dl RDW 15 (10.5-15) % Plt Count 185 (150-450) 10^3/ul MPV 8 (7.4-10.4) um3 Neut % (Auto) 78.5 (38-83) % Lymph % (Auto) 12.1 L (25-47) % [place] % (Auto) 7.8 (1-9) % Eos % (Auto) 0.9 (0-6) % Baso % (Auto) 0.7 (0-2) % Absolute Neuts (auto) 8.6 H (1.5-7.7) 10^3/ul Absolute Lymphs (auto) 1.3 (1.0-4.8) 10^3/ul Absolute Monos (auto) 0.9 H (0-0.8) 10^3/ul Absolute Eos (auto) 0.1 (0-0.6) 10^3/ul Absolute Basos (auto) 0.1 (0-0.2) 10^3/ul Absolute Nucleated RBC 0 10^3/ul Nucleated RBC % 0 INR (Anticoag Therapy) 0.96 (0.77-1.02) APTT 31.5 (26.0-36.3) seconds Sodium 134 (133-145) mmol/L Potassium 3.8 (3.5-5.0) mmol/L Chloride 102 (101-111) mmol/L Carbon Dioxide 25 (22-32) mmol/L Anion Gap 7 (2-11) mmol/L BUN 19 (6-24) mg/dL Creatinine 0.82 (0.67-1.17) mg/dL Est GFR ( Amer) 115.1 (>60) Est GFR (Non-Af Amer) 89.5 (>60) BUN/Creatinine Ratio 23.2 H (8-20) Glucose 115 H (70-100) mg/dL Calcium 9.6 (8.6-10.3) mg/dL Total Bilirubin 1.00 (0.2-1.0) mg/dL AST 28 (13-39) U/L ALT 20 (7-52) U/L Alkaline Phosphatase 145 H (34-104) U/L Troponin I 0.04 H* (<0.04) ng/mL Total Protein 6.9 (6.4-8.9) g/dL Albumin 3.8 (3.2-5.2) g/dL Globulin 3.1 (2-4) g/dL Albumin/Globulin Ratio 1.2 (1-3) Lipase 23 (11.0-82.0) U/L Urine Color Urine Appearance Urine pH (5-9) Ur Specific [place] (1.010-1.030) Urine Protein (Negative) Urine Ketones (Negative) Urine Blood (Negative) Urine Nitrate (Negative) Urine Bilirubin (Negative) Urine Urobilinogen (Negative) Ur Leukocyte Esterase (Negative) Urine WBC (Auto) (Absent) Urine RBC (Auto) (Absent) Urine Bacteria (Absent) Urine Glucose (Negative) Urine Ascorbic Acid (Negative) 02/10/17 Range/Units 03:25 WBC (3.5-10.8) 10^3/ul RBC (4.0-5.4) 10^6/ul Hgb (14.0-18.0) g/dl Hct (42-52) % MCV (80-94) fL MCH (27-31) pg MCHC (31-36) g/dl RDW (10.5-15) % Plt Count (150-450) 10^3/ul MPV (7.4-10.4) um3 Neut % (Auto) (38-83) % Lymph % (Auto) (25-47) % [place] % (Auto) (1-9) % Eos % (Auto) (0-6) % Baso % (Auto) (0-2) % Absolute Neuts (auto) (1.5-7.7) 10^3/ul Absolute Lymphs (auto) (1.0-4.8) 10^3/ul Absolute Monos (auto) (0-0.8) 10^3/ul Absolute Eos (auto) (0-0.6) 10^3/ul Absolute Basos (auto) (0-0.2) 10^3/ul Absolute Nucleated RBC 10^3/ul Nucleated RBC % INR (Anticoag Therapy) (0.77-1.02) APTT (26.0-36.3) seconds Sodium (133-145) mmol/L Potassium (3.5-5.0) mmol/L Chloride (101-111) mmol/L Carbon Dioxide (22-32) mmol/L Anion Gap (2-11) mmol/L BUN (6-24) mg/dL Creatinine (0.67-1.17) mg/dL Est GFR ( Amer) (>60) Est GFR (Non-Af Amer) (>60) BUN/Creatinine Ratio (8-20) Glucose (70-100) mg/dL Calcium (8.6-10.3) mg/dL Total Bilirubin (0.2-1.0) mg/dL AST (13-39) U/L ALT (7-52) U/L Alkaline Phosphatase (34-104) U/L Troponin I (<0.04) ng/mL Total Protein (6.4-8.9) g/dL Albumin (3.2-5.2) g/dL Globulin (2-4) g/dL Albumin/Globulin Ratio (1-3) Lipase (11.0-82.0) U/L Urine Color Yellow Urine Appearance Cloudy Urine pH 6.0 (5-9) Ur Specific [place] 1.011 (1.010-1.030) Urine Protein Negative (Negative) Urine Ketones Negative (Negative) Urine Blood Negative (Negative) Urine Nitrate Negative (Negative) Urine Bilirubin Negative (Negative) Urine Urobilinogen Negative (Negative) Ur Leukocyte Esterase 3+ H (Negative) Urine WBC (Auto) 3+(>20/hpf) H (Absent) Urine RBC (Auto) 1+(3-5/hpf) H (Absent) Urine Bacteria 2+ H (Absent) Urine Glucose Negative (Negative) Urine Ascorbic Acid * H (Negative) Result Diagrams: 02/10/17 03:25 02/10/17 03:25 Lab Statement: Any lab studies that have been ordered have been reviewed, and results considered in the medical decision making process. - EKG 04:35 Cardiac Rate: NL EKG Rhythm: Sinus Rhythm - 82 BPM EKG Interpretation: No acute changes. Complex Multi-Symp Course/Dx Course Of Treatment: This patient is an 86 year old M BIBA to [facility] with a chief complaint of diarrhea since six hours ago. An EKG reveals sinus rhythm ( 82 BPM) and no acute changes. Bloodwork obtained. Patients troponin is high. He has a history of elevated troponin but trending down. Patient will be discharged with prescription for Levaquin and follow up from PCP. The patient is agreeable with this plan. - Diagnoses Provider Diagnoses: Diarrhea, UTI (urinary tract infection) Discharge - Discharge Plan Condition: Stable Disposition: HOME Prescriptions: Levofloxacin TAB* [Levaquin TAB*] 500 mg PO DAILY #6 tab Patient Education Materials: Urinary Tract Infection in Men (ED), Acute Diarrhea (ED) Referrals: Session Campbell WEHELER [Primary Care Provider] - 3 Days Additional Instructions: Follow up with your Primary Care Provider in 3 days. Return to the Emergency Room if current symptoms worsen or if new symptoms develop. The documentation as recorded by the Maynor bonilla Tiffany accurately reflects the service I personally performed and the decisions made by , Jamal Keller.
[2017-02-10 05:44] VITALS: BP 134/69
--- NOTE | 2017-02-14 08:53 | PN ---
Progress Note - Progress Note Date of Service: 02/10/17 Note: Urine culture grew E. Coli Patient placed on Levaquin prior to discharge Levaquin is not sensitive to organism. Organism is sensitive to Keflex. Patient placed on Keflex and called the [facility] to inform. They will fill prescription and start today. Nothing further at this time. Mirella Gray PA-C
== END 2017-02-10 05:47 | disposition home or self-care (01) ==
LOC: ED 02:43
DX: R19.7 Diarrhea, unspecified (principal); N39.0 Urinary tract infection, site not specified; K21.9 Gastro-esophageal reflux disease without esophagitis; N40.0 Benign prostatic hyperplasia without lower urinary tract symptoms; Z88.2 Allergy status to sulfonamides; I10 Essential (primary) hypertension; I25.10 Atherosclerotic heart disease of native coronary artery without angina pectoris; I73.9 Peripheral vascular disease, unspecified; Z87.891 Personal history of nicotine dependence; B96.20 Unspecified Escherichia coli [E. coli] as the cause of diseases classified elsewhere
CPT/HCPCS: 36415; 80053; 81003; 81015; 83690; 84484; 85025; 85610; 85730; 87077; 87086; 87186; 93005; 96360; 99284

== ENCOUNTER → 2017-02-25 13:42 | Emergency (ER) | payer MEDICARE, MEDICAID ==
[~2017-02-25 13:42] MED LIST: NS 0.9% 1000 ML* 1,000 ML IV SCH; NS 0.9% 1000 ML*IV.FLUID IV ONE
--- NOTE | 2017-02-25 15:16 | RAD ---
INDICATION: Head injury. COMPARISON: Comparison is made with a prior CT of the brain from August 31, 2015. TECHNIQUE: Contiguous axial sections of the brain were obtained from the skull base to the vertex without contrast. FINDINGS: The ventricles, cisterns and sulci are enlarged consistent with diffuse atrophy. There are multiple focal areas of decreased density in the subcortical and periventricular white matter suggestive of moderate to severe chronic small vessel ischemic changes. No other focal abnormality or mass effect is seen. There is no evidence for hemorrhage. There are calcifications within the in the orbits involving both globes, unchanged. No significant focal osseous abnormality is seen. The visualized portion of the paranasal sinuses and mastoid air cells appear clear. IMPRESSION: NO EVIDENCE FOR ACUTE INTRACRANIAL ABNORMALITY.
--- NOTE | 2017-02-25 15:24 | RAD ---
INDICATION: Trauma. COMPARISON: There are no prior studies available for comparison. TECHNIQUE: Contiguous axial sections were obtained from the skull base through the T2 vertebra. Images were reconstructed in the sagittal and coronal planes. There is motion artifact limiting the exam slightly. FINDINGS: There is mild retrolisthesis of C4 relative to C5 approximately 2 mm which appears to be degenerative in origin. No prevertebral soft tissue swelling or fracture is seen. The C3-C4 level there is mild posterior uncinate process spurring. There is mild spinal canal narrowing and mild bilateral neural foraminal narrowing. At the C4-C5 level there is posterior uncinate process spurring and mild retrolisthesis. There is moderate to severe spinal canal narrowing and moderate bilateral neural foraminal narrowing. At the C5-C6 level there is mild posterior uncinate process spurring. No significant spinal canal or neural foraminal narrowing is seen. At the C6-C7 level there is mild posterior uncinate process spurring. There is mild spinal canal narrowing and mild to moderate bilateral neural foraminal narrowing. IMPRESSION: 1. NO EVIDENCE FOR FRACTURE. 2. MODERATE TO SEVERE CERVICAL SPONDYLOSIS DESCRIBED.
[2017-02-25 15:25] LABS: ABS Basophils 0.1 10^3/ul (0-0.2); ABS Eosinophils 0 10^3/ul (0-0.6); ABS Lymphocytes 0.4 10^3/ul (1.0-4.8); ABS Monocytes 0.9 10^3/ul (0-0.8); ABS Neutrophils 4.9 10^3/ul (1.5-7.7); ABS Nucleated RBC 0 10^3/ul; Eosinophil % 0.2 % (0-6); Hematocrit 39 % (42-52); Hemoglobin 12.9 g/dl (14.0-18.0); Lymphocyte % 6.8 % (25-47); Mean Corpuscular HGB Conc 34 g/dl (31-36); Mean Corpuscular Hemoglobin 32 pg (27-31); Mean Corpuscular Volume 94 fL (80-94); Mean Platelet Volume 8 um3 (7.4-10.4); Nucleated Red Blood Cells % 0; Platelet Count 155 10^3/ul (150-450); Red Cell Distribution Width 15 % (10.5-15); White Blood Count 6.3 10^3/ul (3.5-10.8)
--- NOTE | 2017-02-25 15:29 | RAD ---
INDICATION: Facial trauma. COMPARISON: There are no prior studies available for comparison. TECHNIQUE: Contiguous axial sections of the axial images of the facial bones were obtained and reconstructed in the coronal and sagittal planes. The exam is limited due to motion artifact. FINDINGS: Soft tissue swelling is noted anterior to the frontal bones. The cruz of the orbits and maxillary sinuses appear intact. The zygomatic arches appear intact. Evaluation of the mandible is limited due to motion artifact. There are calcifications in both orbits involving the globes. The nasal bones appear intact. There is moderate S-shaped deviation of the nasal septum which is convex toward the right along its anterior portion and toward the left along its posterior portion. The pterygoid plates appear intact. The paranasal sinuses appear clear. There is pneumatization of the right uterus apex with a small air-fluid level. The mastoid air cells appear clear. IMPRESSION: NO EVIDENCE OF FRACTURE.
[2017-02-25 15:37] LABS: INR 1.06 (0.77-1.02)
[2017-02-25 15:40] LABS: EGFR Non-African American 105.7 (>60)
--- NOTE | 2017-02-25 16:18 | RAD ---
INDICATION: Weakness and cough. COMPARISON: Comparison is made with a prior chest x-ray study from January 05, 2017. TECHNIQUE: A portable view of the chest was obtained. FINDINGS: Cardiac and mediastinal contours appear to be within normal limits. The lungs are hyperinflated. There is a small infiltrate at the left lung base which appears unchanged from the prior study. The previously noted right basilar infiltrate has resolved. No pleural effusion is seen. IMPRESSION: SMALL LEFT BASILAR INFILTRATE UNCHANGED FROM THE PRIOR STUDY.
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
[2017-02-25 17:39] VITALS: BP 114/70
== END | disposition home or self-care (01) ==
LOC: ED 13:42
DX: S09.90XA Unspecified injury of head, initial encounter (principal); S01.81XA Laceration without foreign body of other part of head, initial encounter; R05 Cough; R53.83 Other fatigue; R53.1 Weakness; W19.XXXA Unspecified fall, initial encounter; Y92.9 Unspecified place or not applicable; Z87.891 Personal history of nicotine dependence
CPT/HCPCS: 36415; 70450; 70486; 71045; 72125; 80053; 83605; 83880; 84484; 85025; 85610; 85730; 86140; 87040; 93005; 99283

== ENCOUNTER 2017-03-03 17:31 | Emergency (ER) | payer MEDICARE, MEDICAID ==
[2017-03-03 18:27] LABS: ABS Basophils 0.1 10^3/ul (0-0.2); ABS Eosinophils 0.1 10^3/ul (0-0.6); ABS Monocytes 0.8 10^3/ul (0-0.8); ABS Nucleated RBC 0 10^3/ul; Eosinophil % 1.1 % (0-6); Hematocrit 39 % (42-52); Hemoglobin 13.2 g/dl (14.0-18.0); Lymphocyte % 8.9 % (25-47); Mean Corpuscular HGB Conc 34 g/dl (31-36); Mean Corpuscular Hemoglobin 32 pg (27-31); Mean Corpuscular Volume 93 fL (80-94); Mean Platelet Volume 7 um3 (7.4-10.4); Nucleated Red Blood Cells % 0; Platelet Count 182 10^3/ul (150-450); Red Cell Distribution Width 14 % (10.5-15)
[2017-03-03 19:10] LABS: EGFR Non-African American 88.3 (>60)
[2017-03-03 20:18] LABS: Urine Appearance Cloudy; Urine Blood Negative (Negative); Urine Color Amber; Urine Ketones Trace (Negative); Urine Protein Negative (Negative); Urine Specific Gravity 1.023 (1.010-1.030); Urine Urobilinogen Negative (Negative)
[2017-03-03] MEDS ORDERED: Sulfamethox/Trimethoprim DS 800/160* TAB PO ONE (20:36)
[2017-03-03] MEDS ORDERED: Ciprofloxacin TAB* 500 MG PO ONE (20:43)
[2017-03-03 21:22] VITALS: BP 112/61
--- NOTE | 2017-03-03 22:42 | ED ---
Negrita Dacosta Nilda, scribed for Kelvin Stewart MD on 03/03/17 at 2046 . GI/ HPI - HPI Summary HPI Summary: This patient is an 86 year old M BIBA to [facility] with a chief complaint of constant moderate urinary retention and diarrhea for the past few days. The patient rates the pain 0/10 in severity. Symptoms aggravated and alleviated by nothing. Patient reports fever. - History of Current Complaint Chief Complaint: EDUrogenitalProblems Time Seen by Provider: 03/03/17 17:45 Stated Complaint: UNABLE TO URINATE Hx Obtained From: Patient, Medical Records - triage note Onset/Duration: Started Days Ago, Still Present Timing: Constant Severity: Moderate Pain Intensity: 0 Associated Signs and Symptoms: Positive: Other: - urinary retention, diarrhea, fever Aggravating Factor(s): Nothing Alleviating Factor(s): Nothing - Additional Pertinent History Primary Care Physician: MARGARITO - Allergy/Home Medications Allergies/Adverse Reactions: Allergies Allergy/AdvReac Type Severity Reaction Status Date / Time Erythromycin Allergy Unknown Unknown Verified 04/16/16 07:39 Reaction Details Sulfa Drugs Allergy Unknown Unknown Verified 04/16/16 07:39 Reaction Details Azithromycin Allergy Unknown Verified 04/16/16 07:39 Reaction Details PMH/Surg Hx/FS Hx/Imm Hx Endocrine/Hematology History: Denies: Hx Anticoagulant Therapy, Hx Diabetes, Hx Thyroid Disease, Other Endocrine/Hematological Disorders Cardiovascular History: Reports: Hx Aneurysm, Hx Coronary Artery Disease, Hx Hypertension Denies: Hx Pacemaker/ICD, Hx Peripheral Vascular Disease, Other Cardiovascular Problems/Disorders Respiratory History: Reports: Hx Chronic Bronchitis, Hx Chronic Obstructive Pulmonary Disease (COPD) Denies: Hx Asthma, Other Respiratory Problems/Disorders GI History: Reports: Hx Gastroesophageal Reflux Disease Denies: Other GI Disorders History: Reports: Hx Benign Prostatic Hyperplasia - Takes Flomax Denies: Hx Renal Disease, Other Problems/Disorders Musculoskeletal History: Denies: Hx Arthritis, Hx Osteoporosis, Other Musculoskeletal History Sensory History: Reports: Hx Cataracts, Hx Legally Blind, Hx Vision Problem, Hx Hearing Problem Denies: Hx Contacts or Glasses, Hx Hearing Aid, Other Sensory Impairments Opthamlomology History: Reports: Hx Cataracts, Hx Legally Blind, Hx Vision Problem Denies: Hx Contacts or Glasses, Other Sensory Impairments Neurological History: Denies: Hx Dementia, Hx Headaches, Hx Seizures, Hx Transient Ischemic Attacks (TIA), Other Neuro Impairments/Disorders Psychiatric History: Denies: Hx Substance Abuse, Other Psychiatric Issues/Disorders Infectious Disease History: No Infectious Disease History: Denies: Hx Clostridium Difficile, Hx Hepatitis, Hx Human Immunodeficiency Virus (HIV), Traveled Outside the [place] in Last 30 Days - Family History Known Family History: Positive: Hypertension - mother Negative: Blood Disorder - Social History [facility]: [facility] Alcohol Use: None Hx Substance Use: No Substance Use Type: Reports: None Hx Tobacco Use: Yes Smoking Status (MU): Former Smoker Type: Pipe Have You Smoked in the Last Year: Yes Review of Systems Positive: Fever. Negative: Chills Negative: Erythema Negative: Sore Throat Negative: Palpitations, Chest Pain Negative: Shortness Of Breath, Cough Positive: Diarrhea. Negative: Abdominal Pain, Vomiting, Nausea Positive: other - urinary retention Negative: Myalgia, Edema Negative: Rash Neurological: Other - negative dizziness All Other Systems Reviewed And Are Negative: Yes Physical Exam - Summary Physical Exam Summary: Constitutional: Well-developed, Well-nourished, Alert. (-) Distressed Skin: Warm, Dry HENT: Normocephalic; Atraumatic Eyes: Conjunctiva normal Neck: Musculoskeletal ROM normal neck. (-) JVD, (-) Stridor, (-) Tracheal deviation Cardio: Rhythm regular, rate normal, Heart sounds normal; Intact distal pulses; The pedal pulses are 2+ and symmetric. Radial pulses are 2+ and symmetric. (-) Murmur Pulmonary/Chest wall: Effort normal. (-) Respiratory distress, (-) Wheezes, (-) Rales Abd: Soft, (-) Tenderness, (-) Distension, (-) Guarding, (-) Rebound Musculoskeletal: (-) Edema Urine: Appears quite cloudy. Lymph: (-) Cervical adenopathy Neuro: Alert, Oriented x3 Psych: Mood and affect Normal Triage Information Reviewed: Yes Vital Signs On Initial Exam: Initial Vitals Temp Pulse Resp BP Pulse Ox 99.3 F 82 13 128/77 97 03/03/17 18:06 03/03/17 18:06 03/03/17 18:06 03/03/17 18:06 03/03/17 18:06 Vital Signs Reviewed: Yes - Chris Coma Scale Coma Scale Total: 15 Diagnostics - Vital Signs Vital Signs Temp Pulse Resp BP Pulse Ox 03/03/17 20:00 78 22 125/69 95 03/03/17 19:30 79 22 128/69 95 03/03/17 19:01 78 15 95 03/03/17 19:00 121/105 03/03/17 18:58 77 15 95 03/03/17 18:30 122/70 03/03/17 18:08 80 25 97 03/03/17 18:07 128/77 03/03/17 18:06 99.3 F 82 13 128/77 97 - Laboratory Lab Results: Lab Results 03/03/17 03/03/17 03/03/17 Range/Units 18:12 18:12 18:12 WBC 11.0 H (3.5-10.8) 10^3/ul RBC 4.20 (4.0-5.4) 10^6/ul Hgb 13.2 L (14.0-18.0) g/dl Hct 39 L (42-52) % MCV 93 (80-94) fL MCH 32 H (27-31) pg MCHC 34 (31-36) g/dl RDW 14 (10.5-15) % Plt Count 182 (150-450) 10^3/ul MPV 7 L (7.4-10.4) um3 Neut % (Auto) 81.2 (38-83) % Lymph % (Auto) 8.9 L (25-47) % Addison % (Auto) 7.7 (1-9) % Eos % (Auto) 1.1 (0-6) % Baso % (Auto) 1.1 (0-2) % Absolute Neuts (auto) 9.0 H (1.5-7.7) 10^3/ul Absolute Lymphs (auto) 1.0 (1.0-4.8) 10^3/ul Absolute Monos (auto) 0.8 (0-0.8) 10^3/ul Absolute Eos (auto) 0.1 (0-0.6) 10^3/ul Absolute Basos (auto) 0.1 (0-0.2) 10^3/ul Absolute Nucleated RBC 0 10^3/ul Nucleated RBC % 0 Sodium 134 (133-145) mmol/L Potassium 4.1 (3.5-5.0) mmol/L Chloride 102 (101-111) mmol/L Carbon Dioxide 26 (22-32) mmol/L Anion Gap 6 (2-11) mmol/L BUN 31 H (6-24) mg/dL Creatinine 0.83 (0.67-1.17) mg/dL Est GFR ( Amer) 113.5 (>60) Est GFR (Non-Af Amer) 88.3 (>60) BUN/Creatinine Ratio 37.3 H (8-20) Glucose 123 H (70-100) mg/dL Lactic Acid 1.1 (0.5-2.0) mmol/L Calcium 9.2 (8.6-10.3) mg/dL Total Bilirubin 0.90 (0.2-1.0) mg/dL AST 28 (13-39) U/L ALT 20 (7-52) U/L Alkaline Phosphatase 123 H (34-104) U/L C-Reactive Protein 5.62 H (< 5.00) mg/L Total Protein 6.4 (6.4-8.9) g/dL Albumin 3.6 (3.2-5.2) g/dL Globulin 2.8 (2-4) g/dL Albumin/Globulin Ratio 1.3 (1-3) Lipase 32 (11.0-82.0) U/L Urine Color Urine Appearance Urine pH (5-9) Ur Specific [place] (1.010-1.030) Urine Protein (Negative) Urine Ketones (Negative) Urine Blood (Negative) Urine Nitrate (Negative) Urine Bilirubin (Negative) Urine Urobilinogen (Negative) Ur Leukocyte Esterase (Negative) Urine WBC (Auto) (Absent) Urine RBC (Auto) (Absent) Urine Bacteria (Absent) Urine Glucose (Negative) Urine Ascorbic Acid (Negative) 03/03/17 Range/Units 19:53 WBC (3.5-10.8) 10^3/ul RBC (4.0-5.4) 10^6/ul Hgb (14.0-18.0) g/dl Hct (42-52) % MCV (80-94) fL MCH (27-31) pg MCHC (31-36) g/dl RDW (10.5-15) % Plt Count (150-450) 10^3/ul MPV (7.4-10.4) um3 Neut % (Auto) (38-83) % Lymph % (Auto) (25-47) % Addison % (Auto) (1-9) % Eos % (Auto) (0-6) % Baso % (Auto) (0-2) % Absolute Neuts (auto) (1.5-7.7) 10^3/ul Absolute Lymphs (auto) (1.0-4.8) 10^3/ul Absolute Monos (auto) (0-0.8) 10^3/ul Absolute Eos (auto) (0-0.6) 10^3/ul Absolute Basos (auto) (0-0.2) 10^3/ul Absolute Nucleated RBC 10^3/ul Nucleated RBC % Sodium (133-145) mmol/L Potassium (3.5-5.0) mmol/L Chloride (101-111) mmol/L Carbon Dioxide (22-32) mmol/L Anion Gap (2-11) mmol/L BUN (6-24) mg/dL Creatinine (0.67-1.17) mg/dL Est GFR ( Amer) (>60) Est GFR (Non-Af Amer) (>60) BUN/Creatinine Ratio (8-20) Glucose (70-100) mg/dL Lactic Acid (0.5-2.0) mmol/L Calcium (8.6-10.3) mg/dL Total Bilirubin (0.2-1.0) mg/dL AST (13-39) U/L ALT (7-52) U/L Alkaline Phosphatase (34-104) U/L C-Reactive Protein (< 5.00) mg/L Total Protein (6.4-8.9) g/dL Albumin (3.2-5.2) g/dL Globulin (2-4) g/dL Albumin/Globulin Ratio (1-3) Lipase (11.0-82.0) U/L Urine Color Ninfa Urine Appearance Cloudy Urine pH 5.0 (5-9) Ur Specific [place] 1.023 (1.010-1.030) Urine Protein Negative (Negative) Urine Ketones Trace H (Negative) Urine Blood Negative (Negative) Urine Nitrate Negative (Negative) Urine Bilirubin Negative (Negative) Urine Urobilinogen Negative (Negative) Ur Leukocyte Esterase 3+ H (Negative) Urine WBC (Auto) 3+(>20/hpf) H (Absent) Urine RBC (Auto) Absent (Absent) Urine Bacteria 3+ H (Absent) Urine Glucose Negative (Negative) Urine Ascorbic Acid * H (Negative) Result Diagrams: 03/03/17 18:12 03/03/17 18:12 Lab Statement: Any lab studies that have been ordered have been reviewed, and results considered in the medical decision making process. GIGU Course/Dx - Course Assessment/Plan: This patient is an 86 year old M BIBA to [facility] with a chief complaint of constant moderate urinary retention and diarrhea for the past few days. The patient rates the pain 0/10 in severity. Symptoms aggravated and alleviated by nothing. Patient reports fever. Blood work is without significant abnormalities except elevated WBC (11), elevat Neuts (9.0). UA reveals Trace Ketones, 3+ WBC, 3+ Leukocyte esterase, 3+ bacteria. Placed catheter and patient able to void. Pt is stable and will be DC with a Dx of UTI , acute urinary retention, benign prostatic hypertrophy, and overflow incontinence. Pt given prescription for Cipro and advised to follow up with PCP in 3 days. Pt understands and is agreeable with this plan. - Diagnoses Provider Diagnoses: Urinary tract infection, Acute urinary retention, Overflow incontinence, benign prostatic hypertrophy Discharge - Discharge Plan Condition: Stable Disposition: HOME Prescriptions: Ciprofloxacin TAB* [Cipro 500 MG TAB*] 500 mg PO BID #20 tab Patient Education Materials: Urinary Retention in Men (ED), Benign Prostatic Hypertrophy (ED), Urinary Incontinence (ED), Urinary Tract Infection in Men (ED) Referrals: Session Campbell WHEELER [Primary Care Provider] - 3 Days Additional Instructions: RETURN TO THE EMERGENCY DEPARTMENT FOR CHANGING OR WORSENING SYMPTOMS. The documentation as recorded by the Negrtia bonilla Nilda accurately reflects the service I personally performed and the decisions made by , Kelvin Stewart MD.
--- NOTE | 2017-03-05 08:57 | PN ---
Progress Note - Progress Note Date of Service: 03/03/17 Note: Urine grew e. coli Patient placed on cipro prior to discharge Will await sensitivities Mirella Gray PA-C
--- NOTE | 2017-03-06 09:02 | PN ---
Progress Note - Progress Note Date of Service: 03/03/17 Note: 100,000 of e. coli. on urine culture. placed on cipro at discharge which shows it is resistant. spoke with patient's nurse at [facility] and told to discontinue cipro at this time. switched to augmentin as it showed e. coli bacteria is sensitive and is not a contraindicated medication for elderly with decreased renal function. informed nurse to have patient return if still exhibiting symptoms. no further action required at this time.
== END 2017-03-03 21:45 | disposition home or self-care (01) ==
LOC: ED 17:31
DX: N39.0 Urinary tract infection, site not specified (principal); B96.20 Unspecified Escherichia coli [E. coli] as the cause of diseases classified elsewhere; R33.9 Retention of urine, unspecified; N39.490 Overflow incontinence; N40.0 Benign prostatic hyperplasia without lower urinary tract symptoms; R19.7 Diarrhea, unspecified; R50.9 Fever, unspecified; I25.10 Atherosclerotic heart disease of native coronary artery without angina pectoris; I10 Essential (primary) hypertension; J44.9 Chronic obstructive pulmonary disease, unspecified; K21.9 Gastro-esophageal reflux disease without esophagitis; H54.8 Legal blindness, as defined in USA; Z88.1 Allergy status to other antibiotic agents; Z88.2 Allergy status to sulfonamides; Z87.891 Personal history of nicotine dependence
CPT/HCPCS: 36415; 80053; 81003; 81015; 83605; 83690; 85025; 86140; 87077; 87086; 87186; 99283; A9270-GY

== ENCOUNTER 2017-03-16 08:24 | Emergency (ER) | payer MEDICARE, MEDICAID ==
[2017-03-16 10:28] VITALS: BP 141/73
--- NOTE | 2017-03-17 08:07 | ED ---
Adarsh Dacosta Gabriel, scribed for Trenton Suazo MD on 03/16/17 at 0849 . GI/ HPI - HPI Summary HPI Summary: This patient is a 86 year old M presenting to [facility] accompanied by his son in order to have his Smiley catheter removed. Patients son states that he was diagnosed with a UTI and a catheter was placed in ED 10 days prior. Additionally he states he called Dr. Ryan this morning and was told to come to ED for removal because they wont touch it. LEVEL 5 CAVEAT: HPI limited due to the patient being unresponsive - History of Current Complaint Chief Complaint: EDGeneral Time Seen by Provider: 03/16/17 08:40 Stated Complaint: CATHETER REMOVAL Hx Obtained From: Family/[employer]ite Heater Hx From Patient Unobtainable Due To: Dementia Onset/Duration: Still Present Timing: Constant Severity: Mild Current Severity: Mild Pain Intensity: 0 Associated Signs and Symptoms: Positive: Negative - Additional Pertinent History Primary Care Physician: MARGARITO - Allergy/Home Medications Allergies/Adverse Reactions: Allergies Allergy/AdvReac Type Severity Reaction Status Date / Time Erythromycin Allergy Unknown Unknown Verified 04/16/16 07:39 Reaction Details Sulfa Drugs Allergy Unknown Unknown Verified 04/16/16 07:39 Reaction Details Azithromycin Allergy Unknown Verified 04/16/16 07:39 Reaction Details PMH/Surg Hx/FS Hx/Imm Hx Endocrine/Hematology History: Denies: Hx Anticoagulant Therapy, Hx Diabetes, Hx Thyroid Disease, Other Endocrine/Hematological Disorders Cardiovascular History: Reports: Hx Aneurysm, Hx Coronary Artery Disease, Hx Hypertension Denies: Hx Pacemaker/ICD, Hx Peripheral Vascular Disease, Other Cardiovascular Problems/Disorders Respiratory History: Reports: Hx Chronic Bronchitis, Hx Chronic Obstructive Pulmonary Disease (COPD) Denies: Hx Asthma, Other Respiratory Problems/Disorders GI History: Reports: Hx Gastroesophageal Reflux Disease Denies: Other GI Disorders History: Reports: Hx Benign Prostatic Hyperplasia - Takes Flomax Denies: Hx Renal Disease, Other Problems/Disorders Musculoskeletal History: Denies: Hx Arthritis, Hx Osteoporosis, Other Musculoskeletal History Sensory History: Reports: Hx Cataracts, Hx Legally Blind, Hx Vision Problem, Hx Hearing Problem Denies: Hx Contacts or Glasses, Hx Hearing Aid, Other Sensory Impairments Opthamlomology History: Reports: Hx Cataracts, Hx Legally Blind, Hx Vision Problem Denies: Hx Contacts or Glasses, Other Sensory Impairments Neurological History: Denies: Hx Dementia, Hx Headaches, Hx Seizures, Hx Transient Ischemic Attacks (TIA), Other Neuro Impairments/Disorders Psychiatric History: Denies: Hx Substance Abuse, Other Psychiatric Issues/Disorders Infectious Disease History: No Infectious Disease History: Denies: Hx Clostridium Difficile, Hx Hepatitis, Hx Human Immunodeficiency Virus (HIV), Traveled Outside the [place] in Last 30 Days - Family History Known Family History: Positive: Hypertension - mother Negative: Blood Disorder - Social History Lives: With Family Alcohol Use: None Hx Substance Use: No Substance Use Type: Reports: None Hx Tobacco Use: Yes Smoking Status (MU): Former Smoker Type: Pipe Have You Smoked in the Last Year: Yes Review of Systems - ROS Summary Review of Systems Summary: LEVEL 5 CAVEAT: ROS limited due to the patient being unresponsive Negative: Fever Genitourinary: Other - cath in place All Other Systems Reviewed And Are Negative: No Physical Exam - Summary Physical Exam Summary: VITAL SIGNS: Reviewed. GENERAL: Patient is a elderly, fragile, weak, male who is lying comfortable in the stretcher. Patient is not in any acute respiratory distress. HEAD AND FACE: No signs of trauma. No ecchymosis, hematomas or skull depressions. No sinus tenderness. EYES: blindness bilaterally EARS: Hearing grossly intact. Ear canals and tympanic membranes are within normal limits. MOUTH: Oropharynx within normal limits. NECK: Supple, trachea is midline, no adenopathy, no JVD, no carotid bruit, no c- spine tenderness, neck with full ROM. CHEST: Symmetric, no tenderness at palpation LUNGS: Clear to auscultation bilaterally. No wheezing or crackles. CVS: Regular rate and rhythm, S1 and S2 present, no murmurs or gallops appreciated. ABDOMEN: Soft, non-tender. No signs of distention. No rebound no guarding, and no masses palpated. Bowel sounds are normal. : Smiley catheter in place EXTREMITIES: FROM in all major joints, no edema, no cyanosis or clubbing. NEURO: No acute neurological deficits. SKIN: Dry and warm Triage Information Reviewed: Yes Vital Signs On Initial Exam: Initial Vitals Temp Pulse Resp BP Pulse Ox 97.7 F 62 18 122/69 98 03/16/17 08:28 03/16/17 08:28 03/16/17 08:28 03/16/17 08:28 03/16/17 08:28 Vital Signs Reviewed: Yes Completion Of Physical Exam Limited Due To: Dementia, Level 5 Diagnostics - Vital Signs Vital Signs Temp Pulse Resp BP Pulse Ox 03/16/17 08:28 97.7 F 62 18 122/69 98 - Laboratory Lab Statement: Any lab studies that have been ordered have been reviewed, and results considered in the medical decision making process. GIGU Course/Dx - Course Assessment/Plan: This patient is a 86 year old M presenting to [facility] accompanied by his son in order to have his Smiley catheter removed. Patients son states that he was diagnosed with a UTI and a catheter was placed in ED 10 days prior. Additionally he states he called Dr. Ryan this morning and was told to come to ED for removal because they wont touch it.. 0854 We discussed patient care with Dr. Ryan and they recommended that it is not possible the patient was told to come to the ED and he will review the patient records and they will contact Dr. Suazo after. 0932: Dr. Ryan recommends discharging the patient home and he will see him in a week for removal if needed. The patient came in for removal on inguinal Smiley he reports calling Dr. Ryan for removal and the recommend he come the ED. Patient was previously Dx with UTI/urinary retention for with he was placed with a Smiley catheter and antibiotics. . Patient will be discharged with follow up from Dr. Ryan. - Diagnoses Differential Diagnoses - Male: BPH, Other - UTI, Urinary retention Provider Diagnoses: Smiley catheter problem, Smiley catheter evaluation - Physician Notifications Discussed Care Of Patient With: Edilberto Ryan Time Discussed With Above Provider: 08:54 Instructed by Provider To: Other - 0854 We discussed patient care with Dr. Ryan and they recommended that it is not possible the patient was told to come to the ED and he will review the patient records and they will contact Dr. Suazo after. 0932: Dr. Ryan recommends discharging the patient home and he will see him in a week for removal. Discharge - Discharge Plan Condition: Stable Disposition: HOME Patient Education Materials: Smiley Catheter Placement and Care (ED), Smiley Catheter Removal (DC) Referrals: Session Campbell WHEELER [Primary Care Provider] - Edilberto Ryan MD [Medical Doctor] - 7 Days Additional Instructions: RETURN TO EMERGENCY DEPARTMENT FOR ANY NEW OR WORSENING SYMPTOMS The documentation as recorded by the Adarsh bonilla Gabriel accurately reflects the service I personally performed and the decisions made by me, Trenton Suazo MD.
== END 2017-03-16 10:15 | disposition home or self-care (01) ==
LOC: ED 08:24
DX: Z46.6 Encounter for fitting and adjustment of urinary device (principal); Z87.440 Personal history of urinary (tract) infections; Z87.891 Personal history of nicotine dependence; Z88.3 Allergy status to other anti-infective agents; Z88.2 Allergy status to sulfonamides
CPT/HCPCS: 99282

== ENCOUNTER 2017-04-13 08:15 | Observation (INO) | payer MEDICARE, MEDICAID ==
--- NOTE | 2017-04-13 09:14 | RAD ---
INDICATION: Shortness of breath. COMPARISON: Comparison is made with a prior study from February 25 2017. TECHNIQUE: A portable view of the chest was obtained. FINDINGS: Cardiac and mediastinal contours appear to be within normal limits. The lungs are hyperinflated. There is a small focal infiltrate at the left lung base. No pleural effusion is seen. IMPRESSION: 1. SMALL LEFT BASILAR INFILTRATE PROGRESSED FROM THE PRIOR STUDY. 2. FINDINGS CONSISTENT WITH COPD.
[2017-04-13] MEDS ORDERED: Levofloxacin 500 MG IVPREMIX(* 500 MG/100 ML BAG IVPB ONE (09:20)
[2017-04-13] MEDS ORDERED: Piperacillin/Tazobac ADVAN(*) 3.375 GM in NS 0.9% 100 ML* 100 ML IVPB ONE (09:21)
[2017-04-13 09:26] LABS: ABS Basophils 0.1 10^3/ul (0-0.2); ABS Eosinophils 0.1 10^3/ul (0-0.6); ABS Lymphocytes 0.6 10^3/ul (1.0-4.8); ABS Monocytes 0.7 10^3/ul (0-0.8); ABS Neutrophils 9.5 10^3/ul (1.5-7.7); ABS Nucleated RBC 0 10^3/ul; Eosinophil % 0.5 % (0-6); Hematocrit 41 % (42-52); Hemoglobin 13.5 g/dl (14.0-18.0); Lymphocyte % 5.8 % (25-47); Mean Corpuscular HGB Conc 33 g/dl (31-36); Mean Corpuscular Hemoglobin 31 pg (27-31); Mean Corpuscular Volume 94 fL (80-94); Mean Platelet Volume 8 um3 (7.4-10.4); Nucleated Red Blood Cells % 0; Platelet Count 151 10^3/ul (150-450); Red Blood Count 4.31 10^6/ul (4.0-5.4); Red Cell Distribution Width 15 % (10.5-15)
[2017-04-13 09:35] LABS: INR 1.02 (0.77-1.02)
[2017-04-13 09:41] LABS: EGFR Non-African American 90.8 (>60)
--- NOTE | 2017-04-13 10:15 | ED ---
Israel Dacosta Julia, scribed for Trenton Meraz MD on 04/13/17 at 0827 . Complex/Multi-Sys Presentation - HPI Summary HPI Summary: This patient is a 86 year old M BIBA to [facility] from halfway with a chief complaint of influenza-like symptoms and n/v/d for the past two days. Patient reports weakness, chills, cough, and SOB. Patient denies pain. - History Of Current Complaint Time Seen by Provider: 04/13/17 08:25 Hx Obtained From: Patient Onset/Duration: Lasting Days Timing: Constant Location: Negative Associated Signs And Symptoms: Positive: SOB, Cough, Nausea, Vomiting, Diarrhea , Fever - Allergies/Home Medications Allergies/Adverse Reactions: Allergies Allergy/AdvReac Type Severity Reaction Status Date / Time azithromycin Allergy Unknown Verified 04/13/17 08:35 Reaction Details erythromycin base Allergy Unknown Verified 04/13/17 08:35 Reaction Details Sulfa (Sulfonamide Allergy Unknown Verified 04/13/17 08:35 Antibiotics) Reaction Details Home Medications: Home Medications Albuterol/Ipratropium NEB.ROSI* [Duoneb (Albuterol 2.5 MG/Ipratropium 0.5 MG)] 1 neb INH Q4H PRN 04/13/17 [History Confirmed 04/13/17] Carbamide Peroxide [Ear Wax Drops] 15 ml OT BID PRN 04/13/17 [History Confirmed 04/13/17] Omeprazole CAP* [Prilosec CAP* 20 MG] 20 mg PO DAILY 04/13/17 [History Confirmed 04/13/17] Polyethylene Glycol 3350* [Miralax*] 17 gm PO BID 04/13/17 [History Confirmed ] PMH/Surg Hx/FS Hx/Imm Hx Endocrine/Hematology History: Denies: Hx Anticoagulant Therapy, Hx Diabetes, Hx Thyroid Disease, Other Endocrine/Hematological Disorders Cardiovascular History: Reports: Hx Aneurysm, Hx Coronary Artery Disease, Hx Hypertension Denies: Hx Pacemaker/ICD, Hx Peripheral Vascular Disease, Other Cardiovascular Problems/Disorders Respiratory History: Reports: Hx Chronic Bronchitis, Hx Chronic Obstructive Pulmonary Disease (COPD) Denies: Hx Asthma, Other Respiratory Problems/Disorders GI History: Reports: Hx Gastroesophageal Reflux Disease Denies: Other GI Disorders History: Reports: Hx Benign Prostatic Hyperplasia - Takes Flomax Denies: Hx Renal Disease, Other Problems/Disorders Musculoskeletal History: Denies: Hx Arthritis, Hx Osteoporosis, Other Musculoskeletal History Sensory History: Reports: Hx Cataracts, Hx Legally Blind, Hx Vision Problem, Hx Hearing Problem Denies: Hx Contacts or Glasses, Hx Hearing Aid, Other Sensory Impairments Opthamlomology History: Reports: Hx Cataracts, Hx Legally Blind, Hx Vision Problem Denies: Hx Contacts or Glasses, Other Sensory Impairments Neurological History: Denies: Hx Dementia, Hx Headaches, Hx Seizures, Hx Transient Ischemic Attacks (TIA), Other Neuro Impairments/Disorders Psychiatric History: Denies: Hx Substance Abuse, Other Psychiatric Issues/Disorders Infectious Disease History: Denies: Hx Clostridium Difficile, Hx Hepatitis, Hx Human Immunodeficiency Virus (HIV) - Family History Known Family History: Positive: Hypertension - mother Negative: Blood Disorder - Social History Alcohol Use: None Hx Substance Use: No Substance Use Type: Reports: None Hx Tobacco Use: Yes Smoking Status (MU): Former Smoker Type: Pipe Have You Smoked in the Last Year: Yes Review of Systems Positive: Chills Positive: Shortness Of Breath, Cough Positive: Vomiting, Diarrhea, Nausea Negative: Myalgia All Other Systems Reviewed And Are Negative: Yes Physical Exam Triage Information Reviewed: Yes Vital Signs On Initial Exam: Initial Vitals BP 145/82 04/13/17 08:25 Vital Signs Reviewed: Yes Appearance: Positive: Ill-Appearing, Thin Skin: Positive: Warm, Skin Color Reflects Adequate Perfusion Head/Face: Positive: Normal Head/Face Inspection Eyes: Positive: EOMI ENT: Positive: Nasal congestion, TMs normal Neck: Positive: Nontender Respiratory/Lung Sounds: Positive: Decreased Breath Sounds Cardiovascular: Positive: RRR. Negative: Murmur Abdomen Description: Positive: Nontender Musculoskeletal: Positive: Strength/ROM Intact Neurological: Positive: Sensory/Motor Intact, Alert, Oriented to Person Place, Time, CN Intact II-III Psychiatric: Positive: Normal - Chris Coma Scale Best Eye Response: 4 - Spontaneous Best Motor Response: 6 - Obeys Commands Best Verbal Response: 5 - Oriented Coma Scale Total: 15 Diagnostics - Vital Signs Vital Signs Temp Pulse Resp BP Pulse Ox 04/13/17 09:00 84 17 130/90 95 04/13/17 08:31 97.5 F 77 16 149/68 96 04/13/17 08:30 81 149/68 95 04/13/17 08:26 81 92 04/13/17 08:25 145/82 - Laboratory Lab Results: Lab Results 04/13/17 04/13/17 04/13/17 Range/Units 08:55 09:15 09:15 WBC 11.0 H (3.5-10.8) 10^3/ul RBC 4.31 (4.0-5.4) 10^6/ul Hgb 13.5 L (14.0-18.0) g/dl Hct 41 L (42-52) % MCV 94 (80-94) fL MCH 31 (27-31) pg MCHC 33 (31-36) g/dl RDW 15 (10.5-15) % Plt Count 151 (150-450) 10^3/ul MPV 8 (7.4-10.4) um3 Neut % (Auto) 86.5 H (38-83) % Lymph % (Auto) 5.8 L (25-47) % Bee % (Auto) 6.4 (0-7) % Eos % (Auto) 0.5 (0-6) % Baso % (Auto) 0.8 (0-2) % Absolute Neuts (auto) 9.5 H (1.5-7.7) 10^3/ul Absolute Lymphs (auto) 0.6 L (1.0-4.8) 10^3/ul Absolute Monos (auto) 0.7 (0-0.8) 10^3/ul Absolute Eos (auto) 0.1 (0-0.6) 10^3/ul Absolute Basos (auto) 0.1 (0-0.2) 10^3/ul Absolute Nucleated RBC 0 10^3/ul Nucleated RBC % 0 INR (Anticoag Therapy) 1.02 (0.77-1.02) APTT 20.8 L (26.0-36.3) seconds Sodium (133-145) mmol/L Potassium (3.5-5.0) mmol/L Chloride (101-111) mmol/L Carbon Dioxide (22-32) mmol/L Anion Gap (2-11) mmol/L BUN (6-24) mg/dL Creatinine (0.67-1.17) mg/dL Est GFR ( Amer) (>60) Est GFR (Non-Af Amer) (>60) BUN/Creatinine Ratio (8-20) Glucose (70-100) mg/dL Lactic Acid (0.5-2.0) mmol/L Calcium (8.6-10.3) mg/dL Total Bilirubin (0.2-1.0) mg/dL AST (13-39) U/L ALT (7-52) U/L Alkaline Phosphatase (34-104) U/L Troponin I (<0.04) ng/mL Total Protein (6.4-8.9) g/dL Albumin (3.2-5.2) g/dL Globulin (2-4) g/dL Albumin/Globulin Ratio (1-3) Influenza A (Rapid) Negative (Negative) Influenza B (Rapid) Negative (Negative) 04/13/17 04/13/17 Range/Units 09:15 09:15 WBC (3.5-10.8) 10^3/ul RBC (4.0-5.4) 10^6/ul Hgb (14.0-18.0) g/dl Hct (42-52) % MCV (80-94) fL MCH (27-31) pg MCHC (31-36) g/dl RDW (10.5-15) % Plt Count (150-450) 10^3/ul MPV (7.4-10.4) um3 Neut % (Auto) (38-83) % Lymph % (Auto) (25-47) % Bee % (Auto) (0-7) % Eos % (Auto) (0-6) % Baso % (Auto) (0-2) % Absolute Neuts (auto) (1.5-7.7) 10^3/ul Absolute Lymphs (auto) (1.0-4.8) 10^3/ul Absolute Monos (auto) (0-0.8) 10^3/ul Absolute Eos (auto) (0-0.6) 10^3/ul Absolute Basos (auto) (0-0.2) 10^3/ul Absolute Nucleated RBC 10^3/ul Nucleated RBC % INR (Anticoag Therapy) (0.77-1.02) APTT (26.0-36.3) seconds Sodium 135 (133-145) mmol/L Potassium 4.3 (3.5-5.0) mmol/L Chloride 103 (101-111) mmol/L Carbon Dioxide 24 (22-32) mmol/L Anion Gap 8 (2-11) mmol/L BUN 33 H (6-24) mg/dL Creatinine 0.81 (0.67-1.17) mg/dL Est GFR ( Amer) 116.8 (>60) Est GFR (Non-Af Amer) 90.8 (>60) BUN/Creatinine Ratio 40.7 H (8-20) Glucose 139 H (70-100) mg/dL Lactic Acid 1.3 (0.5-2.0) mmol/L Calcium 9.3 (8.6-10.3) mg/dL Total Bilirubin 0.80 (0.2-1.0) mg/dL AST 27 (13-39) U/L ALT 17 (7-52) U/L Alkaline Phosphatase 132 H (34-104) U/L Troponin I 0.03 (<0.04) ng/mL Total Protein 6.4 (6.4-8.9) g/dL Albumin 3.7 (3.2-5.2) g/dL Globulin 2.7 (2-4) g/dL Albumin/Globulin Ratio 1.4 (1-3) Influenza A (Rapid) (Negative) Influenza B (Rapid) (Negative) Result Diagrams: 04/13/17 09:15 04/13/17 09:15 Lab Statement: Any lab studies that have been ordered have been reviewed, and results considered in the medical decision making process. - Radiology CXR Radiology Interpretation Completed By: Radiologist - 1. SMALL LEFT BASILAR INFILTRATE PROGRESSED FROM THE PRIOR STUDY. 2. FINDINGS CONSISTENT WITH COPD. ED Physician has reviewed this report. - EKG 0833 Cardiac Rate: NL - 85 BPM EKG Rhythm: Sinus Rhythm EKG Interpretation: no STEMI Complex Multi-Symp Course/Dx Course Of Treatment: 86 yr old with basilar infiltrate, shortness of breath, and generalized weakness. EKG reveals no acute concern. CXR is consistent with COPD and infiltrate consistent with pneumonia. Lab data reveals an elevated WBC count. Patient is given Levaquin, zosyn and IV fluids. Plan admit to hospitalists, by Dr. Espitia. - Diagnoses Provider Diagnoses: Pneumonia, Shortness of breath - Physician Notifications Discussed Care Of Patient With: Clay Espitia Time Discussed With Above Provider: 10:00 Discharge - Discharge Plan Condition: Good Disposition: ADMITTED TO [facility] Referrals: Session LIAM,Campbell [Primary Care Provider] - The documentation as recorded by the Israel bonilla Julia accurately reflects the service I personally performed and the decisions made by me, Trenton Meraz MD.
[2017-04-13] MEDS ORDERED: Ondansetron INJ* 2 MG/ML VIAL ONE (12:45)
[2017-04-13] MEDS ORDERED: Ondansetron INJ* 2 MG/ML VIAL IV PRN (12:48)
[2017-04-13] MEDS ORDERED: NS 0.9% 1000 ML* 1,000 ML IV ONE (12:48)
[2017-04-13] MEDS ORDERED: Acetaminophen TAB* 325 MG PO PRN (12:48)
[2017-04-13] MEDS ORDERED: Albuterol 2.5 MG/3 ML NEB.SOL* (0.083%) INH PRN (12:48)
[2017-04-13] MEDS ORDERED: NS 0.9% 1000 ML* 1,000 ML IV SCH (13:00)
[2017-04-13] MEDS ORDERED: Levofloxacin 750 MG IVPREMIX(* 750 MG/150 ML BAG IVPB SCH (13:00)
[2017-04-13] MEDS ORDERED: Albuterol/Ipratropium NEB.SOL* Albuterol 2.5 MG/Ipratropium 0.5 MG 3 ML INH SCH (13:00)
[2017-04-13] MEDS: Oseltamivir CAP* 75 MG CAP PO SCH ×2 (14:13→22:23)
[2017-04-13] MEDS: Heparin VIAL(*) 5000 UNITS/ML VIAL (FIVE THOUSAND) SUBCUT SCH ×2 (14:14→22:23)
[2017-04-13] MEDS: Mometasone/Formoter 200/5 MDI INH SCH (20:29)
[2017-04-13] MEDS ORDERED: Atorvastatin* 40 MG TAB PO SCH (21:00)
[2017-04-13] MEDS ORDERED: Tamsulosin CAP* 0.4 MG PO SCH (21:00)
--- NOTE | 2017-04-13 21:41 | HP ---
CC: Dr. Garza * HISTORY AND PHYSICAL: DATE OF ADMISSION: 04/13/17 PRIMARY CARE PROVIDER: Dr. Garza. ATTENDING PHYSICIAN WHILE IN THE HOSPITAL: Dr. Sarbjit Espitia * (report dictated by Ross Thomas NP). CHIEF COMPLAINT: 1. Cough. 2. Not feeling well. 3. Fever. HISTORY OF PRESENT ILLNESS: Mr. Hare is an 86-year-old male patient. He resides at [facility]. He comes in to our ER today. He states that last couple of days, he has been coughing. He has had episode of vomiting this morning and diarrhea yesterday and today. He says he has also been aching all over. He has felt hot and warm. He says he is just not feeling well. He has been little bit more short of breath particularly with exertion. Denies any chest pain. Denies any fluttering or palpitations in his chest. He says that he was feeling weak. There was concern. He was sent to the ER and was evaluated. There was concern that it looked like he had pneumonia and we were asked to evaluate for admission. He again denied any abdominal pain or chest pain. At this point, he says he just feels very malaise, fatigued, aching all over, and short of breath particularly with exertion. PAST MEDICAL HISTORY: Significant for: 1. Legally blind. 2. Hypertension. 3. Hyperlipidemia. 4. GERD. 5. COPD. 6. History of AAA. 7. BPH. 8. AFib. 9. NSTEMI. PAST SURGICAL HISTORY: He has had tonsillectomy. MEDICATIONS: Home meds include: 1. Ear wax drops 15 cc b.i.d. as needed. 2. Maalox 30 cc p.o. every 4 hours. 3. MiraLAX 17 g p.o. b.i.d. 4. DuoNeb 1 neb inhaled every 4 hours as needed. 5. Colace 100 mg daily. 6. Lipitor 40 mg at bedtime. 7. Aspirin 81 mg daily. 8. Tobradex 1 drop both eyes b.i.d. 9. Flomax 0.4 mg p.o. daily at bedtime. 10. Hydrocortisone cream 1 application topically daily as needed. 11. Prilosec 20 mg daily. 12. Advair 1 puff inhaled b.i.d. 13. Proscar 5 mg daily. 14. Ferrous sulfate 325 mg daily. 15. Zantac 150 mg p.o. b.i.d. 16. Multivitamin 1 tablet daily. 17. Mobic 15 mg p.o. daily. 18. Digoxin 0.125 mg daily. 19. Vitamin C 500 mg daily. 20. Norvasc 5 mg daily. ALLERGIES TO MEDICATIONS: Include AZITHROMYCIN, ERYTHROMYCIN, and SULFA DRUGS. FAMILY HISTORY: Mother had high blood pressure. Father's history reviewed and noncontributory. SOCIAL HISTORY: He resides at [facility]. Surrogate decision maker is Genesis Rivera. He quit smoking 2 months ago, but prior to that he smoked about half a pack to pack a day. He does not drink alcohol. REVIEW OF SYSTEMS: There is a documented fever here of 101.4. He denied having any significant weight change. There is no double vision. There is no ear discharge. He denied having any rhinorrhea or sore throat leading up to this. He denied having any abdominal pain, but he did admit to having nausea. He denied having any loss of consciousness, no pruritus, and no skin ulcerations. Review of 14 systems completed, all others negative. PHYSICAL EXAMINATION GENERAL: At this time, Mr. Hare is an 86-year-old male patient, he is chronically ill-appearing. He is sitting in the hospital bed. He does not appear to be in any acute distress. VITAL SIGNS: Blood pressure now is 120/65, pulse 85, respirations 16, O2 sat 97 % on 2 L, and temperature actually when he got up here on the floor was 101.4. HEENT: Head is atraumatic. Eyes: EOMs intact. Sclerae anicteric. Throat: Oral mucosa appears to be dry. No oropharyngeal erythema. NECK: Supple. LUNGS: He has crackles in the right base. He had equal diaphragmatic expansion. HEART: Sounds S1 and S2, irregularly irregular rate. No murmurs, rubs, or gallops. ABDOMEN: Soft, flat, nontender. Bowel sounds present. EXTREMITIES: Pulses 2+ throughout. Moving all 4 extremities with 5/5 strength. NEUROLOGIC: He is awake, alert, oriented x3. Tongue midline. Collections And Archives Director were equal. No gross focal deficits. SKIN: Intact. DIAGNOSTIC STUDIES/LAB DATA: WBC of 11, RBC of 4.31, hemoglobin 13.5, hematocrit of 41, and platelet count of 151. INR 1.02, PTT of 20.8. Sodium 135 , potassium 4.3, chloride 103, bicarb 24, BUN 33, creatinine of 0.81, glucose 139, lactate 1.3, calcium 9.3. Total bili 0.8, AST 27, ALT 17, alk phos 132. Troponin 0.03. BNP of 121. Albumin 3.7. Serology was negative for flu. Chest x-ray: Small left basilar infiltrate progression from prior study. Findings consistent with COPD. He had an EKG obtained today. EKG actually shows sinus rhythm with no ST elevations or T-wave inversions. Previous EKG showed again sinus rhythm at that point as well. No acute changes. Old medical records were reviewed. He had an echo done. His last EF was 55% to 60%. Old medical records were reviewed. ASSESSMENT AND PLAN: Mr. Hare is an 86-year-old male patient with multiple medical problems coming into the ED today with complaints of not feeling well, coughing, worsening shortness of breath. On evaluation today, he was found to have what appeared to be pneumonia. We were asked to evaluate for admission. He will be admitted under observation status for: 1. Pneumonia with early sign of sepsis, as evidenced by, when he got up to the floor here, his heart rate was 120, his temperature was 101.4, his white count is up a little bit. Fortunately, his blood pressure is maintaining and his mental is maintaining, but showing early signs of systemic inflammatory response syndrome. I suspect this is probably from pneumonia, possibly flu, even though his flu swab was negative. My plan will be to go ahead and put him on Tamiflu and nebs every 4 hours, pulmonary toileting, legionella and Streptococcus pneumoniae antigen. His blood culture has been received. We will try to get sputum culture if possible. I will place him on telemetry to monitor the heart rate. I am going to get him another liter of fluids and then we will continue him on Levaquin for antibiotic therapy and will follow him closely. His wish is not to be intubated until his respiratory status declines. He is not really wheezing, so I am opting out on systemic steroids in setting of this severe infection. So, I will go ahead and just give him Dulera. For the time being, we will follow closely. 2. Atrial fibrillation. He is in sinus now, is little tachy. We will monitor him on the monitors and continue the digoxin. He is not on anticoagulation at this point and he has declined which is fine and we will go ahead and continue his current medical regimen. Follow this closely. 3. Hypertension. In the setting of his acute illness, I am going to hold his antihypertensive. His blood pressure when he came in was 140, this is now down to 120, so we are just going to hold his meds and restart when able. 4. Hyperlipidemia. Continue meds as prescribed. 5. Gastroesophageal reflux disease. Continue PPI therapy. 6. Chronic obstructive pulmonary disease. Again, he is not really wheezing on exam, so I am holding systemic steroids. We will go ahead and put him on nebs, inhaled steroids, pulmonary toileting. If he does become wheezing, we certainly will go ahead and give him prednisone. 7. Nausea and vomiting. Probably secondary to viral illness. I wrote a p.r.n. Zofran and clear liquid diet. 8. Abdominal aortic aneurysm. Follow with primary. 9. Benign prostatic hyperplasia. Continue his Proscar and Flomax. 10. DVT prophylaxis. Heparin subcu has been ordered as he is a high risk. 11. Code status. DNR. 12. Fluids, electrolytes, and nutrition. Clear liquid diet. Normal saline has also been ordered at 100 an hour after his 1 L bolus. TIME SPENT: On the admission was 60 minutes; greater than half the time spent face- to-face with the patient obtaining my history and physical, other half of the time spent going over the plan of care with the patient and implementing the plan of care. I did discuss the plan of care with my attending, Dr. Espitia; he is in agreement. ROSS THOMAS NP [id number]/[facility] #: [id number] CHRISTIAN
[2017-04-13] MEDS: Tobramycin/Dexameth OPTH.SUSP* 2.5 M L BTL BOTH EYES SCH (22:23)
[2017-04-14] MEDS: Heparin VIAL(*) 5000 UNITS/ML VIAL (FIVE THOUSAND) SUBCUT SCH (06:15)
[2017-04-14 07:24] LABS: ABS Basophils 0.1 10^3/ul (0-0.2); ABS Eosinophils 0.1 10^3/ul (0-0.6); ABS Lymphocytes 1.4 10^3/ul (1.0-4.8); ABS Monocytes 0.8 10^3/ul (0-0.8); ABS Neutrophils 7.2 10^3/ul (1.5-7.7); ABS Nucleated RBC 0 10^3/ul; Eosinophil % 0.6 % (0-6); Hematocrit 33 % (42-52); Hemoglobin 11.3 g/dl (14.0-18.0); Mean Corpuscular HGB Conc 34 g/dl (31-36); Mean Corpuscular Hemoglobin 32 pg (27-31); Mean Corpuscular Volume 93 fL (80-94); Mean Platelet Volume 8 um3 (7.4-10.4); Nucleated Red Blood Cells % 0; Platelet Count 125 10^3/ul (150-450); Red Blood Count 3.54 10^6/ul (4.0-5.4); Red Cell Distribution Width 15 % (10.5-15); White Blood Count 9.5 10^3/ul (3.5-10.8)
[2017-04-14 07:44] LABS: INR 1.28 (0.77-1.02)
[2017-04-14 07:56] LABS: EGFR Non-African American 96.2 (>60)
[2017-04-14] MEDS: Mometasone/Formoter 200/5 MDI INH SCH (08:27)
[2017-04-14 08:42] VITALS: BP 97/49
[2017-04-14] MEDS ORDERED: Aspirin Low Dose CHEW TAB* 81 MG PO SCH (09:00)
[2017-04-14] MEDS ORDERED: Omeprazole CAP* 20 MG PO SCH (09:00)
[2017-04-14] MEDS ORDERED: Docusate CAP* 100 MG PO SCH (09:00)
[2017-04-14] MEDS ORDERED: Ferrous Sulfate TAB* 325 MG PO SCH (09:00)
[2017-04-14] MEDS ORDERED: Digoxin TAB* 0.25 MG PO SCH (09:00)
[2017-04-14] MEDS ORDERED: Finasteride TAB* 5 MG PO SCH (09:00)
[2017-04-14] MEDS ORDERED: Levofloxacin 750 MG IVPREMIX(* 750 MG/150 ML BAG IVPB SCH (10:00)
[2017-04-14] MEDS: Tobramycin/Dexameth OPTH.SUSP* 2.5 M L BTL BOTH EYES SCH (10:07)
[2017-04-14] MEDS: Oseltamivir CAP* 75 MG CAP PO SCH (10:07)
--- NOTE | 2017-04-14 13:11 | DS ---
DATE OF ADMISSION: 04/13/2017. DATE OF DISCHARGE: 04/14/2017. ADMITTING PROVIDER: Ross Thomas NP. ATTENDING PHYSICIAN: Abdi Stephens MD. PRIMARY CARE PHYSICIAN: Dr. Garza and REGINALDO Pickett. CHIEF COMPLAINT: Cough, fever, malaise, vomiting. PRINCIPAL DIAGNOSIS: Likely influenza; cannot rule out community-acquired pneumonia. HISTORY OF PRESENT ILLNESS AND HOSPITAL COURSE: Guanako Hare is an 86-year- old male, resident of [facility], with a past medical history of Legal blindness , hypertension, hyperlipidemia, GERD, COPD, BPH, A-fib, and STEMI, large and progressively enlarging AAA, last 7.4 X 8.1 cm December 2016 who presents with coughing times a few days, malaise, myalgias, fevers, shortness of breath and dyspnea on exertion. Upon presentation to the [facility] Emergency Room, he spiked a fever of 101.4. He had a chest x-ray which showed a possible small left basilar infiltrate. He was started on Levaquin empirically. I note he also has frequent urinary tract infections with E. coli and a recent admission for E. coli sepsis back in December 2016. He was admitted to observation status. His initial white count was 11.0 with a left shift of 86.5 percent neutrophils. He was empirically started on Tamiflu as well. His blood cultures are no growth times one day. Urine legionella and streptococcus pneumoniae antigens have been negative. His influenza swabs were negative. As I said, he was started empirically given symptoms. The patient felt much better. He has been afebrile for 24 hours, asking to be returned home to his roommate Yohana and other [facility] residents. He is being discharged on seven more doses of the Tamiflu and five days of Levaquin to make a total of a seven day dose. He received one dose of Zosyn in the emergency room prior to the Levaquin. DISCHARGE MEDICATIONS: 1. Aspirin 81 mg daily. 2. Atorvastatin 40 mg at bedtime. 3. Digoxin 0.125 mg daily. 4. Docusate 100 mg p.o. daily. 5. Ferrous Sulfate 325 mg p.o. daily. 6. Finasteride 5 mg p.o. daily. 7. Omeprazole 20 mg p.o. daily. 8. Tamsulosin 0.4 mg p.o. at bedtime. 9. Tobradex one drop both eyes b.i.d. 10. Maalox 30 ml p.o. q.4 hours. 11. DuoNeb's inhaled q.4 hours prn. 12. Ascorbic acid 500 mg p.o. daily. 13. Carbamide peroxide earwax drops 15 ml OT b.i.d. prn. 14. Advair one puff inhaled b.i.d. 15. Hydrocortisone 1% cream topically daily prn. 16. Levaquin 750 mg p.o. daily for 5 days. 17. Meloxicam 15 mg p.o. daily. 18. Multivitamin one tab p.o. daily. 19. Tamiflu 75 mg p.o. b.i.d. for 7 more tabs. 20. MiraLax 17 mg p.o. b.i.d. 21. Zantac 150 mg p.o. b.i.d. DISCHARGE DIET: Heart-healthy. ACTIVITY LEVEL: No restrictions. The patient is a wall walker at baseline. FOLLOW-UP: Please follow-up with REGINALDO Castellano within five days of discharge. Time spent on this discharge was 35 minutes. [id number]/[facility] #: [id number] MTDYi
== END 2017-04-14 14:00 | disposition home or self-care (01) ==
LOC: ED 08:15 → MED 11:57
PROVIDERS: ADMIT Internal Medicine; ATTEND Internal Medicine
DX: J11.1 Influenza due to unidentified influenza virus with other respiratory manifestations (principal); I10 Essential (primary) hypertension; E78.5 Hyperlipidemia, unspecified; K21.9 Gastro-esophageal reflux disease without esophagitis; J44.9 Chronic obstructive pulmonary disease, unspecified; N40.0 Benign prostatic hyperplasia without lower urinary tract symptoms; I48.91 Unspecified atrial fibrillation; I25.2 Old myocardial infarction; I71.4 Abdominal aortic aneurysm, without rupture; Z79.899 Other long term (current) drug therapy; R06.02 Shortness of breath; Z88.0 Allergy status to penicillin; Z88.1 Allergy status to other antibiotic agents; Z88.2 Allergy status to sulfonamides; Z87.891 Personal history of nicotine dependence; R94.31 Abnormal electrocardiogram [ECG] [EKG]
CPT/HCPCS: 36415; 71045; 80048; 80053; 80162; 83605; 83880; 84484; 85025; 85610; 85730; 87040; 87502; 87641; 87899; 93005; 94640; 94760; 94762; 96365; 96366; 96372; 96375; 99284; A9270-GY; G0378; J1644; J1956; J2405; J2543

== ENCOUNTER 2017-08-05 08:05 | Emergency (ER) | payer MEDICARE, MEDICAID ==
[2017-08-05] MEDS ORDERED: NS 0.9% 1000 ML* 1,000 ML IV ONE ×2 (08:37→10:08)
[2017-08-05 09:05] LABS: ABS Basophils 0.1 10^3/ul (0-0.2); ABS Eosinophils 0 10^3/ul (0-0.6); ABS Lymphocytes 0.8 10^3/ul (1.0-4.8); ABS Monocytes 0.6 10^3/ul (0-0.8); ABS Neutrophils 6.8 10^3/ul (1.5-7.7); ABS Nucleated RBC 0 10^3/ul; Eosinophil % 0.5 % (0-6); Hematocrit 34 % (42-52); Hemoglobin 11.4 g/dl (14.0-18.0); Lymphocyte % 9.8 % (25-47); Mean Corpuscular HGB Conc 34 g/dl (31-36); Mean Corpuscular Hemoglobin 32 pg (27-31); Mean Corpuscular Volume 94 fL (80-94); Mean Platelet Volume 7.6 um3 (7.4-10.4); Nucleated Red Blood Cells % 0; Platelet Count 166 10^3/ul (150-450); Red Blood Count 3.58 10^6/ul (4.00-5.40); Red Cell Distribution Width 14 % (10.5-15); White Blood Count 8.3 10^3/ul (3.5-10.8)
--- NOTE | 2017-08-05 09:10 | RAD ---
HISTORY: syncope COMPARISONS: April 13, 2017 VIEWS: 2: frontal portable view of the chest at 9:00 AM FINDINGS: LINES AND TUBES: None. CARDIOMEDIASTINAL SILHOUETTE: The cardiomediastinal silhouette is normal for portable technique. PLEURA: The costophrenic angles are sharp. No pleural abnormalities are noted. LUNG PARENCHYMA: There is hyperinflation. ABDOMEN: The upper abdomen is clear. There is no subphrenic gas. BONES AND SOFT TISSUES: No bone or soft tissue abnormalities are noted. IMPRESSION: COPD. NO ACTIVE CARDIOPULMONARY DISEASE.
[2017-08-05] MEDS ORDERED: cefTRIAXone(*) 1 GM in NS 0.9% 50 ML* 50 ML IVPB ONE (10:07)
[2017-08-05 11:19] LABS: Urine Appearance Clear; Urine Blood Negative (Negative); Urine Color Yellow; Urine Ketones Negative (Negative); Urine Protein Negative (Negative); Urine Specific Gravity 1.016 (1.010-1.030); Urine Urobilinogen Negative (Negative)
[2017-08-05] MEDS ORDERED: Ondansetron INJ* 2 MG/ML VIAL IV ONE (13:33)
[2017-08-05] MEDS ORDERED: Pantoprazole IV* 40 MG IV ONE (13:33)
[2017-08-05] MEDS ORDERED: Ondansetron ODT TAB* 4 MG PO ONE (13:33)
[2017-08-05 14:34] LABS: INR 1.14 (0.77-1.02)
[2017-08-05 18:07] VITALS: BP 111/70
--- NOTE | 2017-08-05 19:03 | ED ---
Stas Dacosta Jade, scribed for Dionicio Magdaleno MD on 08/05/17 at 0900 . Syncope/Near Syncope - HPI Summary HPI Summary: Pt is an 87 y/o male BIBA who s/p syncope. As per pt, he was straining to urinate when he felt like he was going to pass out. He called the nurse and laid in bed, at which point he passed out as per nursing staff. Pt denies any dysuria, bladder pain, or falling. He lives at a half-[place] in [place]. - History Of Current Complaint Chief Complaint: EDSyncope Time Seen by Provider: 08/05/17 08:35 Hx Obtained From: Patient, Family/Outsole Leveler - Nursing staff Onset/Duration: Sudden Onset, Resolved Context: Loss Of Consciousness Activity At Onset: Other - Straining to urinate Associated Head Trauma: No - Allergies/Home Medications Allergies/Adverse Reactions: Allergies Allergy/AdvReac Type Severity Reaction Status Date / Time azithromycin Allergy Unknown Verified 04/13/17 08:35 Reaction Details erythromycin base Allergy Unknown Verified 04/13/17 08:35 Reaction Details Sulfa (Sulfonamide Allergy Unknown Verified 04/13/17 08:35 Antibiotics) Reaction Details Home Medications: Home Medications amLODIPine TAB* [Norvasc 5 mg TAB*] 5 mg PO DAILY 08/05/17 [History Confirmed ] PMH/Surg Hx/FS Hx/Imm Hx Endocrine/Hematology History: Denies: Hx Anticoagulant Therapy, Hx Diabetes, Hx Thyroid Disease, Other Endocrine/Hematological Disorders Cardiovascular History: Reports: Hx Aneurysm, Hx Coronary Artery Disease, Hx Hypertension Denies: Hx Pacemaker/ICD, Hx Peripheral Vascular Disease, Other Cardiovascular Problems/Disorders Respiratory History: Reports: Hx Chronic Bronchitis, Hx Chronic Obstructive Pulmonary Disease (COPD) Denies: Hx Asthma, Other Respiratory Problems/Disorders GI History: Reports: Hx Gastroesophageal Reflux Disease Denies: Other GI Disorders History: Reports: Hx Benign Prostatic Hyperplasia - Takes Flomax Denies: Hx Renal Disease, Other Problems/Disorders Musculoskeletal History: Denies: Hx Arthritis, Hx Osteoporosis, Other Musculoskeletal History Sensory History: Reports: Hx Cataracts, Hx Legally Blind, Hx Vision Problem, Hx Hearing Problem Denies: Hx Contacts or Glasses, Hx Hearing Aid, Other Sensory Impairments Opthamlomology History: Reports: Hx Cataracts, Hx Legally Blind, Hx Vision Problem Denies: Hx Contacts or Glasses, Other Sensory Impairments Neurological History: Denies: Hx Dementia, Hx Headaches, Hx Seizures, Hx Transient Ischemic Attacks (TIA), Other Neuro Impairments/Disorders Psychiatric History: Denies: Hx Substance Abuse, Other Psychiatric Issues/Disorders Infectious Disease History: No Infectious Disease History: Reports: Hx of Known/Suspected MRSA Denies: Hx Clostridium Difficile, Hx Hepatitis, Hx Human Immunodeficiency Virus (HIV), Traveled Outside the [place] in Last 30 Days - Family History Known Family History: Positive: Hypertension - mother Negative: Blood Disorder - Social History Alcohol Use: None Hx Substance Use: No Substance Use Type: Reports: None Hx Tobacco Use: Yes Smoking Status (MU): Former Smoker Type: Pipe Have You Smoked in the Last Year: Yes Review of Systems Negative: Fever Negative: hematuria, pain - Bladder Positive: Syncope All Other Systems Reviewed And Are Negative: Yes Physical Exam - Summary Physical Exam Summary: Appearance: no pain distress. Thin and frail. Skin: warm, dry, reflects adequate perfusion Head/face: normal Eyes: EOMI, ALFRED ENT: normal Neck: supple, non-tender Respiratory: CTA. Slightly diminished breath sounds. Cardiovascular: RRR, pulses symmetrical. No lower extremity edema. Abdomen: non-tender, soft. Non-distended over bladder. Bowel Sounds: present Musculoskeletal: normal, strength/ROM intact Neuro: normal, sensory motor intact, A&Ox3 Triage Information Reviewed: Yes Vital Signs On Initial Exam: Initial Vitals Temp Pulse Resp BP Pulse Ox 97.2 F 83 18 128/74 97 08/05/17 08:05 08/05/17 08:05 08/05/17 08:05 08/05/17 08:05 08/05/17 08:05 Vital Signs Reviewed: Yes Diagnostics - Vital Signs Vital Signs Temp Pulse Resp BP Pulse Ox 08/05/17 08:05 97.2 F 83 18 128/74 97 - Laboratory Lab Results: Lab Results 08/05/17 08/05/17 08/05/17 Range/Units 08:54 08:54 08:54 WBC 8.3 (3.5-10.8) 10^3/ul RBC 3.58 L (4.00-5.40) 10^6/ul Hgb 11.4 L (14.0-18.0) g/dl Hct 34 L (42-52) % MCV 94 (80-94) fL MCH 32 H (27-31) pg MCHC 34 (31-36) g/dl RDW 14 (10.5-15) % Plt Count 166 (150-450) 10^3/ul MPV 7.6 (7.4-10.4) um3 Neut % (Auto) 81.1 (38-83) % Lymph % (Auto) 9.8 L (25-47) % [place] % (Auto) 7.7 H (0-7) % Eos % (Auto) 0.5 (0-6) % Baso % (Auto) 0.9 (0-2) % Absolute Neuts (auto) 6.8 (1.5-7.7) 10^3/ul Absolute Lymphs (auto) 0.8 L (1.0-4.8) 10^3/ul Absolute Monos (auto) 0.6 (0-0.8) 10^3/ul Absolute Eos (auto) 0 (0-0.6) 10^3/ul Absolute Basos (auto) 0.1 (0-0.2) 10^3/ul Absolute Nucleated RBC 0 10^3/ul Nucleated RBC % 0 INR (Anticoag Therapy) (0.77-1.02) APTT (26.0-36.3) seconds Sodium 139 (135-145) mmol/L Potassium 4.7 (3.5-5.0) mmol/L Chloride 108 (101-111) mmol/L Carbon Dioxide 27 (22-32) mmol/L Anion Gap 4 (2-11) mmol/L BUN 45 H (6-24) mg/dL Creatinine 0.77 (0.67-1.17) mg/dL Est GFR ( Amer) 123.5 (>60) Est GFR (Non-Af Amer) 96.0 (>60) BUN/Creatinine Ratio 58.4 H (8-20) Glucose 125 H (70-100) mg/dL Lactic Acid 2.1 H* (0.5-2.0) mmol/L Calcium 8.6 (8.6-10.3) mg/dL Magnesium 2.1 (1.9-2.7) mg/dL Total Bilirubin 0.90 (0.2-1.0) mg/dL AST 20 (13-39) U/L ALT 15 (7-52) U/L Alkaline Phosphatase 108 H (34-104) U/L Troponin I 0.05 H* (<0.04) ng/mL Total Protein 5.3 L (6.4-8.9) g/dL Albumin 3.1 L (3.2-5.2) g/dL Globulin 2.2 (2-4) g/dL Albumin/Globulin Ratio 1.4 (1-3) TSH 1.20 (0.34-5.60) mcIU/mL Urine Color Urine Appearance Urine pH (5-9) Ur Specific [place] (1.010-1.030) Urine Protein (Negative) Urine Ketones (Negative) Urine Blood (Negative) Urine Nitrate (Negative) Urine Bilirubin (Negative) Urine Urobilinogen (Negative) Ur Leukocyte Esterase (Negative) Urine WBC (Auto) (Absent) Urine RBC (Auto) (Absent) Urine Bacteria (Absent) Urine Glucose (Negative) Urine Ascorbic Acid (Negative) Digoxin 0.7 L (0.8-2.0) ng/ml 08/05/17 08/05/17 Range/Units 10:46 14:16 WBC (3.5-10.8) 10^3/ul RBC (4.00-5.40) 10^6/ul Hgb (14.0-18.0) g/dl Hct (42-52) % MCV (80-94) fL MCH (27-31) pg MCHC (31-36) g/dl RDW (10.5-15) % Plt Count (150-450) 10^3/ul MPV (7.4-10.4) um3 Neut % (Auto) (38-83) % Lymph % (Auto) (25-47) % [place] % (Auto) (0-7) % Eos % (Auto) (0-6) % Baso % (Auto) (0-2) % Absolute Neuts (auto) (1.5-7.7) 10^3/ul Absolute Lymphs (auto) (1.0-4.8) 10^3/ul Absolute Monos (auto) (0-0.8) 10^3/ul Absolute Eos (auto) (0-0.6) 10^3/ul Absolute Basos (auto) (0-0.2) 10^3/ul Absolute Nucleated RBC 10^3/ul Nucleated RBC % INR (Anticoag Therapy) 1.14 H (0.77-1.02) APTT 27.9 (26.0-36.3) seconds Sodium (135-145) mmol/L Potassium (3.5-5.0) mmol/L Chloride (101-111) mmol/L Carbon Dioxide (22-32) mmol/L Anion Gap (2-11) mmol/L BUN (6-24) mg/dL Creatinine (0.67-1.17) mg/dL Est GFR ( Amer) (>60) Est GFR (Non-Af Amer) (>60) BUN/Creatinine Ratio (8-20) Glucose (70-100) mg/dL Lactic Acid (0.5-2.0) mmol/L Calcium (8.6-10.3) mg/dL Magnesium (1.9-2.7) mg/dL Total Bilirubin (0.2-1.0) mg/dL AST (13-39) U/L ALT (7-52) U/L Alkaline Phosphatase (34-104) U/L Troponin I (<0.04) ng/mL Total Protein (6.4-8.9) g/dL Albumin (3.2-5.2) g/dL Globulin (2-4) g/dL Albumin/Globulin Ratio (1-3) TSH (0.34-5.60) mcIU/mL Urine Color Yellow Urine Appearance Clear Urine pH 7.0 (5-9) Ur Specific [place] 1.016 (1.010-1.030) Urine Protein Negative (Negative) Urine Ketones Negative (Negative) Urine Blood Negative (Negative) Urine Nitrate Positive A (Negative) Urine Bilirubin Negative (Negative) Urine Urobilinogen Negative (Negative) Ur Leukocyte Esterase 2+ A (Negative) Urine WBC (Auto) 3+(>20/hpf) A (Absent) Urine RBC (Auto) Absent (Absent) Urine Bacteria 3+ A (Absent) Urine Glucose Negative (Negative) Urine Ascorbic Acid * A (Negative) Digoxin (0.8-2.0) ng/ml Result Diagrams: 08/05/17 08:54 08/05/17 08:54 Lab Statement: Any lab studies that have been ordered have been reviewed, and results considered in the medical decision making process. - EKG 8:42 Cardiac Rate: NL - 70 bpm EKG Rhythm: Sinus Rhythm ST Segment: Non-Specific EKG Interpretation: Normal axis, QTc normal Re-Evaluation - Re-Evaluation First Eval Re-Evaluation Time: 13:25 Change: Worse Comment: Coffee ground emesis. Second Eval Re-Evaluation Time: 15:25 Change: Improved Comment: Pt feels fine. No nausea or abdominal pain. Hemoccult was negative. To be discharged home. Course/Dx Course Of Treatment: Patient was feeling weak and had a syncopal episode while trying to use the restroom. He is found to be dehydrated and had evidence for urinary tract infection. He was hydrated here, given IV antibiotics and improved significantly. He was to be discharged. Just prior to discharge she had an episode of dark emesis. We are not able to get enough for gastric occult blood testing. It did not look like coffee grounds. He was observed for several hours after that and felt much better. He wishes to be discharged. Ambulance was contacted for discharge back and he still felt a little dizzy. At this time he tells us he does not want hospitalization, he wishes to be made comfort care measures. He does not want hospitalization or need to be sent to the ER. I suggested hospice be contacted and his DNR status be made DNR, comfort care only. He agreed to this. This was communicated to his nursing facility. - Diagnoses Provider Diagnoses: Micturition syncope, UTI (urinary tract infection), Vomiting - Critical Care Time Critical Care Time: 30-74 min - Critical care time is exclusive of separately billable procedures. Includes multiple re-eval's, treatment and decision making. Discharge - Sign-Out/Discharge Documenting (check all that apply): Discharge/Admit/Transfer - Discharge - Discharge Plan Condition: Stable Disposition: HOME Prescriptions: Cephalexin CAP* [Keflex CAP*] 500 mg PO TID #10 cap Patient Education Materials: Dehydration (ED), Urinary Tract Infection in Men ( ED), Syncope (ED) Referrals: [facility] [Primary Care Provider] - Additional Instructions: Patient wishes to be made comfort care measures only. He does not wish to be sent to the hospital. Please contact hospice care at his wishes. Follow up with the primary care doctor early in the week. - Billing Disposition and Condition Condition: STABLE Disposition: Home The documentation as recorded by the Stas bonilla Jade accurately reflects the service I personally performed and the decisions made by me, Dionicio Magdaleno MD.
--- NOTE | 2017-08-07 16:33 | ED ---
Progress - Progress Note Progress Note: Patient's preliminary urine culture reveals greater than 100,000 Escherichia coli. Patient was started on Keflex. Final results pending. Re-Evaluation - Re-Evaluation First Eval Re-Evaluation Time: 13:25 Change: Worse Comment: Coffee ground emesis. Second Eval Re-Evaluation Time: 15:25 Change: Improved Comment: Pt feels fine. No nausea or abdominal pain. Hemoccult was negative. To be discharged home. Course/Dx - Course Course Of Treatment: Patient was feeling weak and had a syncopal episode while trying to use the restroom. He is found to be dehydrated and had evidence for urinary tract infection. He was hydrated here, given IV antibiotics and improved significantly. He was to be discharged. Just prior to discharge she had an episode of dark emesis. We are not able to get enough for gastric occult blood testing. It did not look like coffee grounds. He was observed for several hours after that and felt much better. He wishes to be discharged. Ambulance was contacted for discharge back and he still felt a little dizzy. At this time he tells us he does not want hospitalization, he wishes to be made comfort care measures. He does not want hospitalization or need to be sent to the ER. I suggested hospice be contacted and his DNR status be made DNR, comfort care only. He agreed to this. This was communicated to his nursing facility. - Diagnoses Provider Diagnoses: Micturition syncope, UTI (urinary tract infection), Vomiting - Critical Care Time Critical Care Time: 30-74 min - Critical care time is exclusive of separately billable procedures. Includes multiple re-eval's, treatment and decision making. Discharge - Sign-Out/Discharge Documenting (check all that apply): Post-Discharge Follow Up - Discharge Plan Condition: Stable Disposition: HOME Prescriptions: Cephalexin CAP* [Keflex CAP*] 500 mg PO TID #10 cap Patient Education Materials: Dehydration (ED), Urinary Tract Infection in Men ( ED), Syncope (ED) Referrals: [facility] [Primary Care Provider] - Additional Instructions: Patient wishes to be made comfort care measures only. He does not wish to be sent to the hospital. Please contact hospice care at his wishes. Follow up with the primary care doctor early in the week. - Billing Disposition and Condition Condition: STABLE Disposition: Home
== END 2017-08-05 12:41 | disposition home or self-care (01) ==
LOC: ED 08:05
DX: E86.0 Dehydration (principal); R55 Syncope and collapse; N39.0 Urinary tract infection, site not specified; R11.10 Vomiting, unspecified; I10 Essential (primary) hypertension; Z66 Do not resuscitate; Z87.891 Personal history of nicotine dependence; Z88.3 Allergy status to other anti-infective agents; Z88.2 Allergy status to sulfonamides
CPT/HCPCS: 36415; 71045; 80053; 80162; 81003; 81015; 82272; 83605; 83735; 84443; 84484; 85025; 85610; 85730; 87077; 87086; 87186; 93005; 96361; 96365; 96375; 99283; A9270-GY; J0696